=== PATIENT | female | born 1990 | race Caucasian/White ===

== ENCOUNTER → 2017-08-14 | Outpatient (REF) | payer OTHER ==
[2017-08-15 12:14] LABS: BASO # 0.1 10^3/uL (0.0-0.2); BASO % 0.5 % (0.0-1.0); EOS # 0.1 10^3/uL (0.0-0.50); EOS % 1.2 % (0.0-3.0); HEMOGLOBIN 13.2 g/dl (12.0-16.0); IMMATURE GRANULOCYTE % 0.4 % (0-3.0); LYMPH # 4.4 10^3/uL (1.5-6.5); MONO # 0.7 10^3/uL (0.0-0.8); MONO % 5.6 % (0.0-5.0); NEUTROPHILS # 6.6 10^3/uL (1.8-7.7); NEUTROPHILS % 55.3 % (36.0-66.0); PLATELET COUNT, AUTOMATED 362 10^3/uL (150-450); RED BLOOD COUNT 4.88 10^6/uL (4.00-5.40); RED CELL DISTRIBUTION WIDTH 12.5 % (11.5-14.5); WHITE BLOOD COUNT 11.9 10^3/uL (4.0-10.0)
[2017-08-15 12:45] LABS: ALBUMIN 3.9 GM/DL (3.2-5.2); ALBUMIN/GLOBULIN RATIO 0.98 (1.00-1.93); ALKALINE PHOSPHATASE 73 U/L (45-117); ALT/SGPT 40 U/L (12-78); ANION GAP 8 MEQ/L (8-16); AST/SGOT 20 U/L (7-37); BILIRUBIN,TOTAL 0.3 MG/DL (0.2-1.0); BLOOD UREA NITROGEN 9 MG/DL (7-18); C REACTIVE PROTEIN QUANTITATIV 0.79 MG/DL (0.00-0.30); CALCIUM LEVEL 9.2 MG/DL (8.5-10.1); CARBON DIOXIDE LEVEL 26 MEQ/L (21-32); CHLORIDE LEVEL 107 MEQ/L (98-107); CREATININE FOR GFR 0.65 MG/DL (0.55-1.30); GLOMERULAR FILTRATION RATE > 60.0 (>60); GLUCOSE, FASTING 95 MG/DL (70-100); RHEUMATOID FACTOR QUANT < 10.0 IU/ML (<15.0); SODIUM LEVEL 141 MEQ/L (136-145); THYROXINE (T4) 10.2 UG/DL (4.5-12.0); TOTAL PROTEIN 7.9 GM/DL (6.4-8.2)
[2017-08-15 12:49] LABS: ERYTHROCYTE SEDIMENTATION RATE 52 mm/hr (0-20)
[2017-08-19 00:07] LABS: CYCLIC CITRULLINATED PEPTIDE 6 units (0-19)
[2017-08-19 00:07] LABS: ANA (HEP2) Negative (.); Lyme Disease IgG Ab 18 kDa Ban Absent (.); Lyme Disease IgG Ab 23 kDa Ban Absent (.); Lyme Disease IgG Ab 28 kDa Ban Absent (.); Lyme Disease IgG Ab 30 kDa Ban Absent (.); Lyme Disease IgG Ab 39 kDa Ban Absent (.); Lyme Disease IgG Ab 41 kDa Ban Present (.); Lyme Disease IgG Ab 45 kDa Ban Absent (.); Lyme Disease IgG Ab 58 kDa Ban Absent (.); Lyme Disease IgG Ab 66 kDa Ban Absent (.); Lyme Disease IgG Ab 93 kDa Ban Absent (.); Lyme Disease IgG West Blot Int Negative (.); Lyme Disease IgG/IgM Antibodie <0.91 ISR (0.00-0.90); Lyme Disease IgM Ab 23 kDa Ban Absent (.); Lyme Disease IgM Ab 39 kDa Ban Absent (.); Lyme Disease IgM Ab 41 kDa Ban Absent (.); Lyme Disease IgM Ab Quantitati 1.44 index (0.00-0.79); Lyme Disease IgM West Blot Int Negative (.)
== END ==
LOC: M SFHCCLAY 15:48
DX: M25.50 Pain in unspecified joint (principal); M79.1 Myalgia
CPT/HCPCS: 84443

== ENCOUNTER → 2017-11-20 | Outpatient (CLI) | payer OTHER | LOC: M WHC 11:06 | DX: N91.1 Secondary amenorrhea (principal) | CPT/HCPCS: 76830 ==

== ENCOUNTER → 2019-08-06 | Outpatient (CLI) | payer OTHER ==
[~2019-08-06] MED LIST: BACT800T5 PO; CELE10TA PO; CELE20TA PO; LAMI1TAB7 OR; TOPA1TAB PO; TRAZ-252 PO; TRAZ1TAB6 PO; TRAZ50TA OR; VYVANSE PO; vivance OR; vyvanse OR
--- NOTE | 2019-08-06 14:52 | REP ---
REASON: Amenorrhea. COMPARISON: 11/20/2017 Transvesical and transvaginal imaging was obtained. The uterus measures 7.5 x 4 x 4.8 cm. The parenchymal echo pattern is within normal limits. The endometrial echo complex measures. The endometrial echo complex measures 6 mm in thickness and is within normal limits. Right ovary measures 3.1 x 2.1 x 1.5 cm and is within normal limits. Left ovary measures 3.3 x 2.3 x 1.8 cm and is within normal limits. The urinary bladder measures 6 x 5 cm. IMPRESSION: Pelvic ultrasonography is within normal limits.
== END ==
LOC: M WHC 10:39
PROVIDERS: ATTEND Nurse Practitioner Women's Health
DX: N91.5 Oligomenorrhea, unspecified (principal); E28.2 Polycystic ovarian syndrome

== ENCOUNTER 2020-12-11 13:45 | Inpatient (IN) | payer OTHER ==
[~2020-12-11] VITALS: Ht 167.6 cm; Wt 144.1 kg
[2020-12-11] MEDS ORDERED: PANT40TA29 PO (15:15)
[2020-12-11 15:38] LABS: HEMOGLOBIN 12.3 g/dl (12.0-15.5); MEAN CORPUSCULAR HEMOGLOBIN 26.7 pg (27.0-33.0); MEAN CORPUSCULAR HGB CONC 32.4 g/dl (32.0-36.5); MEAN CORPUSCULAR VOLUME 82.6 fl (80.0-96.0); PLATELET COUNT, AUTOMATED 339 10^3/uL (150-450); WHITE BLOOD COUNT 11.7 10^3/uL (4.0-10.0)
[2020-12-11 16:17] LABS: AMPHETAMINES LEVEL URINE NEGATIVE (NEGATIVE); BARBITURATES URINE NEGATIVE (NEGATIVE); BENZODIAZEPINES URINE NEGATIVE (NEGATIVE); CANNABINOIDS URINE NEGATIVE (NEGATIVE); COCAINE METABOLITE URINE NEGATIVE (NEGATIVE); METHADONE URINE NEGATIVE (NEGATIVE); OPIATES URINE NEGATIVE (NEGATIVE); PHENCYCLIDINE URINE NEGATIVE (NEGATIVE)
[2020-12-11 16:21] LABS: ACETAMINOPHEN LEVEL < 2.0 UG/ML (10.0-30.0); ALBUMIN 3.8 GM/DL (3.2-5.2); ALT/SGPT 75 U/L (12-78); BILIRUBIN,DIRECT 0.1 MG/DL (0.0-0.2); BILIRUBIN,TOTAL 0.5 MG/DL (0.2-1.0); BLOOD UREA NITROGEN 10 MG/DL (7-18); CALCIUM LEVEL 9.1 MG/DL (8.5-10.1); CARBON DIOXIDE LEVEL 24 MEQ/L (21-32); CHLORIDE LEVEL 107 MEQ/L (98-107); CREATININE FOR GFR 0.68 MG/DL (0.55-1.30); ETHYL ALCOHOL (ETHANOL) < 0.003 % (0.000-0.010); GLOMERULAR FILTRATION RATE > 60.0 (>60); GLUCOSE, FASTING 95 MG/DL (70-100); POTASSIUM SERUM 4.2 MEQ/L (3.5-5.1); SALICYLATE LEVEL < 1.7 MG/DL (5.0-30.0); SODIUM LEVEL 137 MEQ/L (136-145); THYROID STIMULATING HORMONE 0.769 uIU/ML (0.358-3.740); TOTAL PROTEIN 7.3 GM/DL (6.4-8.2)
[2020-12-12] MEDS ORDERED: CITA20TA6 PO (08:02)
[2020-12-12] MEDS ORDERED: PANTOPRAZOLE 40MG TAB (PROTONIX) PO ONE (08:35)
[2020-12-12] MEDS ORDERED: CitaloPRAM (CeleXA) 20 MG TAB PO ONE (08:35)
[2020-12-12] MEDS ORDERED: CitaloPRAM (CeleXA) 20 MG TAB PO SCH (09:00)
[2020-12-12 11:40] LABS: RSV AMPLIFICATION NEGATIVE (NEGATIVE)
[2020-12-12] MEDS ORDERED: ACETAMINOPHEN TAB 650MG DOSE (2X325MG) PO PRN (14:00)
[2020-12-12] MEDS ORDERED: MOM 30ML SUSPENSION UDC PO PRN (14:00)
[2020-12-12] MEDS ORDERED: MAALOX 30 ML SUSP *UDC PO PRN (14:00)
[2020-12-12 17:46] LABS: HCG, SERUM QUALITATIVE NEGATIVE (NEGATIVE)
[2020-12-12 18:48] VITALS: BP 138/88
[2020-12-12 22:44] VITALS: BP 138/88
[2020-12-13 06:26] VITALS: BP 133/83
[2020-12-13] MEDS ORDERED: CitaloPRAM (CeleXA) 20 MG TAB PO SCH (09:00)
[2020-12-13] MEDS: PANTOPRAZOLE 40MG TAB (PROTONIX) PO SCH (09:02)
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
[2020-12-13] MEDS ORDERED: LOPERAMIDE 2 MG CAPLET PO ONE (11:30)
[2020-12-13] MEDS ORDERED: LOPERAMIDE 2 MG CAPLET PO PRN (11:30)
[2020-12-13 17:32] VITALS: BP 120/58
[2020-12-13] MEDS: PRAZOSIN 1 MG CAP PO SCH (22:02)
[2020-12-13] MEDS: traZODone 50 MG TAB PO PRN (22:02)
[2020-12-14 07:06] VITALS: BP 99/52
[2020-12-14] MEDS: PANTOPRAZOLE 40MG TAB (PROTONIX) PO SCH (09:39)
[2020-12-14] MEDS: CitaloPRAM (CeleXA) 10 MG TABLET PO SCH (09:53)
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
[2020-12-14 18:00] VITALS: BP 142/69
[2020-12-14] MEDS ORDERED: LOPERAMIDE 2 MG CAPLET PO ONE (21:15)
[2020-12-14] MEDS ORDERED: LOPERAMIDE 2 MG CAPLET PO PRN (21:15)
[2020-12-14] MEDS: PRAZOSIN 1 MG CAP PO SCH (21:31)
[2020-12-14] MEDS: traZODone 50 MG TAB PO PRN (23:02)
[2020-12-15 06:29] VITALS: BP 117/69
[2020-12-15] MEDS: PANTOPRAZOLE 40MG TAB (PROTONIX) PO SCH (10:13)
[2020-12-15] MEDS: CitaloPRAM (CeleXA) 10 MG TABLET PO SCH (10:14)
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
[2020-12-15 16:28] LABS: HEMATOCRIT 38.5 % (36.0-47.0); HEMOGLOBIN 12.7 g/dl (12.0-15.5); MEAN CORPUSCULAR HEMOGLOBIN 27.1 pg (27.0-33.0); MEAN CORPUSCULAR VOLUME 82.3 fl (80.0-96.0); PLATELET COUNT, AUTOMATED 340 10^3/uL (150-450); RED BLOOD COUNT 4.68 10^6/uL (4.00-5.40); WHITE BLOOD COUNT 12.1 10^3/uL (4.0-10.0)
[2020-12-15 18:00] VITALS: BP 124/54
[2020-12-15] MEDS: PRAZOSIN 1 MG CAP PO SCH (21:42)
[2020-12-15] MEDS: traZODone 50 MG TAB PO PRN (23:33)
[2020-12-16 05:32] VITALS: BP 104/57
[2020-12-16] MEDS: PANTOPRAZOLE 40MG TAB (PROTONIX) PO SCH (08:41)
[2020-12-16] MEDS: CitaloPRAM (CeleXA) 10 MG TABLET PO SCH (08:41)
[2020-12-16 10:18] VITALS: BP 104/57
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
[2020-12-16 17:09] VITALS: BP 138/77
[2020-12-16] MEDS: PRAZOSIN 1 MG CAP PO SCH (21:41)
[2020-12-16] MEDS: traZODone 50 MG TAB PO PRN (23:10)
[2020-12-17 06:20] VITALS: BP 119/58
[2020-12-17] MEDS: CitaloPRAM (CeleXA) 10 MG TABLET PO SCH (08:44)
[2020-12-17] MEDS: PANTOPRAZOLE 40MG TAB (PROTONIX) PO SCH (08:44)
[2020-12-17 15:43] VITALS: BP 117/57
[2020-12-17] MEDS: PRAZOSIN 1 MG CAP PO SCH (20:27)
[2020-12-17] MEDS: traZODone 50 MG TAB PO PRN (20:27)
[2020-12-18 06:38] VITALS: BP 122/56
[2020-12-18] MEDS: CitaloPRAM (CeleXA) 10 MG TABLET PO SCH (09:38)
[2020-12-18] MEDS: PANTOPRAZOLE 40MG TAB (PROTONIX) PO SCH (09:38)
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
[2020-12-18 19:07] VITALS: BP 128/62
[2020-12-18] MEDS: PRAZOSIN 1 MG CAP PO SCH (21:37)
[2020-12-18] MEDS: traZODone 50 MG TAB PO PRN (22:31)
[2020-12-19 06:00] VITALS: BP 112/58
[2020-12-19] MEDS: CitaloPRAM (CeleXA) 10 MG TABLET PO SCH (08:28)
[2020-12-19] MEDS: PANTOPRAZOLE 40MG TAB (PROTONIX) PO SCH (08:28)
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
[2020-12-19] MEDS ORDERED: PRAZ2CAP PO (14:27)
[2020-12-19] MEDS ORDERED: CELE40TA PO (14:27)
[2020-12-19 18:06] VITALS: BP 133/83
[2020-12-19 22:04] VITALS: BP 128/69
[2020-12-19] MEDS: traZODone 50 MG TAB PO PRN (22:04)
[2020-12-19] MEDS: PRAZOSIN 1 MG CAP PO SCH (22:04)
[2020-12-20 07:11] VITALS: BP 117/68
[2020-12-20] MEDS: PANTOPRAZOLE 40MG TAB (PROTONIX) PO SCH (08:36)
[2020-12-20] MEDS: CitaloPRAM (CeleXA) 10 MG TABLET PO SCH (08:37)
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
== END 2020-12-20 12:30 | disposition home or self-care (01) | DRG 885 ==
LOC: M ED 13:45 → M ED INP 12-12 13:57 → M PSY 12-12 18:14
PROVIDERS: ADMIT Psychiatry & Neurology Psychiatry; ATTEND Psychiatry & Neurology Psychiatry
DX: F33.9 Major depressive disorder, recurrent, unspecified (principal); R45.851 Suicidal ideations; F43.10 Post-traumatic stress disorder, unspecified; E66.01 Morbid (severe) obesity due to excess calories

== ENCOUNTER 2020-12-25 10:58 | Inpatient (IN) | payer OTHER ==
[~2020-12-25] VITALS: Ht 167.6 cm; Wt 142.7 kg
[~2020-12-25 10:58] MED LIST changes: +CELE40TA PO; +CITA20TA6 PO; +PANT40TA29 PO; +PRAZ2CAP PO
[2020-12-25 11:23] LABS: BASO % 0.3 % (0.0-1.0); EOS # 0.1 10^3/uL (0.0-0.5); EOS % 0.5 % (0.0-3.0); HEMATOCRIT 40.2 % (36.0-47.0); HEMOGLOBIN 12.9 g/dl (12.0-15.5); LYMPH # 2.5 10^3/uL (1.5-5.0); MEAN CORPUSCULAR HEMOGLOBIN 26.6 pg (27.0-33.0); MEAN CORPUSCULAR HGB CONC 32.1 g/dl (32.0-36.5); MEAN CORPUSCULAR VOLUME 82.9 fl (80.0-96.0); MONO # 0.5 10^3/uL (0.0-0.8); MONO % 4.6 % (2.0-8.0); NEUTROPHILS # 8.3 10^3/uL (1.5-8.5); NEUTROPHILS % 72.2 % (36.0-66.0); PLATELET COUNT, AUTOMATED 321 10^3/uL (150-450); RED BLOOD COUNT 4.85 10^6/uL (4.00-5.40); WHITE BLOOD COUNT 11.5 10^3/uL (4.0-10.0)
[2020-12-25] MEDS ORDERED: CHARCOAL ACTIVATED LIQUID 25 GM/120 ML BTL PO ONE (11:35)
[2020-12-25] MEDS: NS 1,000 ML IV SCH ×2 (11:51→21:35)
[2020-12-25 11:52] LABS: HCG, SERUM QUALITATIVE NEGATIVE (NEGATIVE)
[2020-12-25 12:07] LABS: ACETAMINOPHEN LEVEL < 2.0 UG/ML (10.0-30.0); ALBUMIN 3.6 GM/DL (3.2-5.2); ALT/SGPT 50 U/L (12-78); BILIRUBIN,DIRECT < 0.1 MG/DL (0.0-0.2); BILIRUBIN,TOTAL 0.7 MG/DL (0.2-1.0); BLOOD UREA NITROGEN 9 MG/DL (7-18); CALCIUM LEVEL 8.7 MG/DL (8.5-10.1); CARBON DIOXIDE LEVEL 23 MEQ/L (21-32); CHLORIDE LEVEL 105 MEQ/L (98-107); CPK CREATINE PHOSPHOKINASE 177 U/L (26-192); CREATININE FOR GFR 0.83 MG/DL (0.55-1.30); ETHYL ALCOHOL (ETHANOL) < 0.003 % (0.000-0.010); GLOMERULAR FILTRATION RATE > 60.0 (>60); GLUCOSE, FASTING 163 MG/DL (70-100); POTASSIUM SERUM 4.9 MEQ/L (3.5-5.1); SALICYLATE LEVEL < 1.7 MG/DL (5.0-30.0); SODIUM LEVEL 135 MEQ/L (136-145); THYROID STIMULATING HORMONE 0.789 uIU/ML (0.358-3.740); TOTAL PROTEIN 7.4 GM/DL (6.4-8.2)
[2020-12-25 12:55] LABS: AMPHETAMINES LEVEL URINE NEGATIVE (NEGATIVE); BARBITURATES URINE NEGATIVE (NEGATIVE); BENZODIAZEPINES URINE NEGATIVE (NEGATIVE); CANNABINOIDS URINE NEGATIVE (NEGATIVE); COCAINE METABOLITE URINE NEGATIVE (NEGATIVE); METHADONE URINE NEGATIVE (NEGATIVE); OPIATES URINE NEGATIVE (NEGATIVE); PHENCYCLIDINE URINE NEGATIVE (NEGATIVE)
[2020-12-25] MEDS ORDERED: PRAZ2CAP PO (18:54)
[2020-12-25] MEDS ORDERED: CITA20TA7 PO (18:54)
[2020-12-25] MEDS ORDERED: HOME MED LIST COMPLETE! XX SCH (19:00)
--- NOTE | 2020-12-25 19:56 | ECGEPIP ---
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
[2020-12-25 21:32] LABS: RSV AMPLIFICATION NEGATIVE (NEGATIVE)
[2020-12-25] MEDS ORDERED: OLANZapine ORAL DISINTEGRATING TAB 5MG PO PRN (21:35)
[2020-12-25] MEDS ORDERED: MOM 30ML SUSPENSION UDC PO PRN (21:35)
[2020-12-25] MEDS ORDERED: ACETAMINOPHEN TAB 650MG DOSE (2X325MG) PO PRN (21:35)
[2020-12-25] MEDS: PRAZOSIN 1 MG CAP PO SCH (22:09)
[2020-12-25] MEDS: traZODone 50 MG TAB PO PRN (22:09)
[2020-12-25] MEDS: CitaloPRAM (CeleXA) 10 MG TABLET PO SCH (22:09)
[2020-12-25 23:57] VITALS: BP 111/65
[2020-12-26] MEDS: PANTOPRAZOLE 40MG TAB (PROTONIX) PO SCH (09:52)
[2020-12-26] MEDS: buPROPion 75 MG TAB PO SCH ×2 (09:52→21:51)
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
[2020-12-26 16:25] VITALS: BP 141/66
[2020-12-26 16:30] VITALS: BP 123/72
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
[2020-12-26] MEDS ORDERED: IBUPROFEN 600MG TAB PO ONE (19:00)
[2020-12-26] MEDS: traZODone 50 MG TAB PO PRN (21:51)
[2020-12-26] MEDS: CitaloPRAM (CeleXA) 10 MG TABLET PO SCH (21:51)
[2020-12-26] MEDS: PRAZOSIN 1 MG CAP PO SCH (21:52)
[2020-12-27 05:58] VITALS: BP 140/90
[2020-12-27] MEDS: PANTOPRAZOLE 40MG TAB (PROTONIX) PO SCH (08:29)
[2020-12-27] MEDS: buPROPion 75 MG TAB PO SCH ×2 (08:29→21:38)
--- NOTE | 2020-12-27 08:39 | MHIPNPDOC ---
[facility] Progress Note Progress Note DATE OF SERVICE: 12/27/20 Patient is cooperated with medications and reports no side effect. She slept well without any nightmares and stated that she is not getting any headache or increased anxiety with the Wellbutrin and is willing to cooperate. She spoke with CPS worker and was reassured that current foster care is only temporary and will be reevaluated after her hospitalization and is feeling a little relieved. She is maintaining good control but reports feeling hopeless worthless and continues to have vague suicidal thoughts but denies any plan or intent. HISTORY:. VITAL SIGNS: See below. NEW TEST RESULTS:. CURRENT MEDICATIONS: See below. MENTAL STATUS EXAMINATION: Patient is a 30-year old female, who is in no acute distress. Speech: Is relevant but not productive. Language skills are fair. Thought processes including: Coherent. Thought content: Remains depressed and feeling unsafe. Abstract reasoning, and computation: Fair. Description of associations: Organized. Description of abnormal or psychotic thoughts: No gross psychotic symptoms. Judgment: Poor. Insight: Fair. Orientation: Oriented. Recent and remote memory: No gross impairment. Attention span and concentration: Fair. Language:. Fund of knowledge: Below average. Mood: Remains depressed feeling hopeless worthless. Affect: Depressed appropriate. DIAGNOSES: 1.. Major depression 2.. 3.. ASSESSMENT: Cooperating with the treatment remains depressed MANAGEMENT PLAN: Knee stabilization. TIME SPENT: 20 minutes. Vital Signs Vital Signs Date Time Temp Pulse Resp B/P (MAP) Pulse Ox O2 Delivery O2 Flow Rate FiO2 12/27/20 05:58 97.8 81 14 140/90 (107) 98 Room Air Current Medications Current Medications Medications (Trade) Dose Ordered Sig/Paty Route PRN Reason Start Time Stop Time Status Last Admin Dose Admin Acetaminophen (Tylenol Tab) 650 mg Q6HP PRN PO HEADACHE or MILD DISCOMFORT 12/25/20 21:35 Al Hydrox/Mg Hydrox/Simethicone (Mylanta) 30 ml Q4HP PRN PO HEARTBURN/INDIGESTION 12/25/20 21:35 Bupropion HCl (Wellbutrin) 75 mg BID PO 12/26/20 09:00 12/27/20 08:29 Citalopram Hydrobromide (CeleXA) 30 mg QHS PO 12/25/20 21:00 12/26/20 21:51 Home Med (Med Rec Complete!) ASDIRECTED XX 12/25/20 19:00 12/25/20 19:01 DC Magnesium Hydroxide (Milk Of Magnesia) 30 ml DAILYPRN PRN PO CONSTIPATION 12/25/20 21:35 Olanzapine (ZyPREXA ZYDIS) 10 mg Q4HP PRN PO AGITATION 12/25/20 21:35 Pantoprazole Sodium (Protonix) 40 mg DAILY PO 12/26/20 09:00 12/27/20 08:29 Prazosin HCl (Minipress) 2 mg QHS PO 12/25/20 21:00 12/26/20 21:52 Sodium Chloride 1,000 ml @ 100 mls/hr Q10H IV 12/25/20 11:35 12/26/20 00:15 DC 12/25/20 11:51 Trazodone HCl (Desyrel) 50 mg QHSP PRN PO INSOMNIA 12/25/20 21:35 12/26/20 21:51 Allergies Coded Allergies: No Known Allergies (Verified , 01/15/12) MARTHA LOPEZ M.D. Dec 27, 2020 08:39
[2020-12-27 16:14] VITALS: BP 130/69
[2020-12-27] MEDS: PRAZOSIN 1 MG CAP PO SCH (21:38)
[2020-12-27] MEDS: traZODone 50 MG TAB PO PRN (21:38)
[2020-12-27] MEDS: CitaloPRAM (CeleXA) 10 MG TABLET PO SCH (21:38)
[2020-12-28 07:12] VITALS: BP 110/55
[2020-12-28] MEDS: buPROPion 75 MG TAB PO SCH ×2 (08:44→22:06)
[2020-12-28] MEDS: PANTOPRAZOLE 40MG TAB (PROTONIX) PO SCH (08:44)
--- NOTE | 2020-12-28 09:11 | MHIPNPDOC ---
[facility] Progress Note Progress Note DATE OF SERVICE: 12/28/20 Patient reports that she contacted the CPS and was told that her son will be in temporary foster care and she is feeling relieved to know that he is in a safe l iving arrangement. She is cooperating and tolerating her Wellbutrin without any complaint of side effect. She slept okay and appears a little more animated and she denies any active suicidal thoughts and willing to cooperate with the treatment. HISTORY:. VITAL SIGNS: See below. NEW TEST RESULTS:. CURRENT MEDICATIONS: See below. MENTAL STATUS EXAMINATION: Patient is a 30-year old female, who is in no acute distress. Speech: Is rational but not productive. Language skills are fair. Thought processes including: Relevant. Thought content: Denies any active suicidal thoughts. Abstract reasoning, and computation: Fair. Description of associations: Organized. Description of abnormal or psychotic thoughts: No psychotic symptoms. Judgment: Fair. Insight: Fair]. Orientation: Oriented. Recent and remote memory: Unimpaired. Attention span and concentration:. Language:. Fund of knowledge:. Mood: Remains depressed but feeling a little more hopeful. Affect: Depressed appropriate. DIAGNOSES: 1.. Major depression recurrent 2.. 3.. ASSESSMENT: Cooperating with the treatment MANAGEMENT PLAN: Continue with the Wellbutrin and supportive therapy. TIME SPENT: 15 minutes. Vital Signs Vital Signs Date Time Temp Pulse Resp B/P (MAP) Pulse Ox O2 Delivery O2 Flow Rate FiO2 12/28/20 08:10 Room Air 12/28/20 07:12 97.8 77 18 110/55 (73) 12/27/20 16:14 98 Current Medications Current Medications Medications (Trade) Dose Ordered Sig/Paty Route PRN Reason Start Time Stop Time Status Last Admin Dose Admin Acetaminophen (Tylenol Tab) 650 mg Q6HP PRN PO HEADACHE or MILD DISCOMFORT 12/25/20 21:35 Al Hydrox/Mg Hydrox/Simethicone (Mylanta) 30 ml Q4HP PRN PO HEARTBURN/INDIGESTION 12/25/20 21:35 Bupropion HCl (Wellbutrin) 75 mg BID PO 12/26/20 09:00 12/28/20 08:44 Citalopram Hydrobromide (CeleXA) 30 mg QHS PO 12/25/20 21:00 12/27/20 21:38 Home Med (Med Rec Complete!) ASDIRECTED XX 12/25/20 19:00 12/25/20 19:01 DC Magnesium Hydroxide (Milk Of Magnesia) 30 ml DAILYPRN PRN PO CONSTIPATION 12/25/20 21:35 Olanzapine (ZyPREXA ZYDIS) 10 mg Q4HP PRN PO AGITATION 12/25/20 21:35 Pantoprazole Sodium (Protonix) 40 mg DAILY PO 12/26/20 09:00 12/28/20 08:44 Prazosin HCl (Minipress) 2 mg QHS PO 12/25/20 21:00 12/27/20 21:38 Sodium Chloride 1,000 ml @ 100 mls/hr Q10H IV 12/25/20 11:35 12/26/20 00:15 DC 12/25/20 11:51 Trazodone HCl (Desyrel) 50 mg QHSP PRN PO INSOMNIA 12/25/20 21:35 12/27/20 21:38 Allergies Coded Allergies: No Known Allergies (Verified , 01/15/12) MARTHA LOPEZ M.D. Dec 28, 2020 09:11
[2020-12-28] MEDS: MAALOX 30 ML SUSP *UDC PO PRN (14:31)
[2020-12-28 16:07] VITALS: BP 121/68
[2020-12-28] MEDS ORDERED: LOPERAMIDE 2 MG CAPLET PO ONE (17:05)
[2020-12-28] MEDS: PRAZOSIN 1 MG CAP PO SCH (22:06)
[2020-12-28] MEDS: traZODone 50 MG TAB PO PRN (22:06)
[2020-12-28] MEDS: CitaloPRAM (CeleXA) 10 MG TABLET PO SCH (22:06)
[2020-12-29 08:00] VITALS: BP 127/67
[2020-12-29] MEDS: PANTOPRAZOLE 40MG TAB (PROTONIX) PO SCH (08:04)
[2020-12-29] MEDS: buPROPion 75 MG TAB PO SCH ×2 (08:04→20:48)
--- NOTE | 2020-12-29 08:33 | MHIPNPDOC ---
[facility] Progress Note Progress Note DATE OF SERVICE: 12/29/20 Patient is tolerating Wellbutrin without any complaint of side effect. She reported that she feels a little less depressed and feeling happier but unable to elaborate. We will increase Seroquel 200 mg twice a day and continue with the supportive therapy. She is complaining slight diarrhea but otherwise has no other physical complaints and in good control. HISTORY:. VITAL SIGNS: See below. NEW TEST RESULTS:. CURRENT MEDICATIONS: See below. MENTAL STATUS EXAMINATION: Patient is a 30-year old female, who is cooperative. Speech: Is rational and coherent. Language skills are fair. Thought processes including: Organized. Thought content: Denies any active suicidal thoughts. Abstract reasoning, and computation: Fair. Description of associations: Relevant and coherent. Description of abnormal or psychotic thoughts: Denies any. Judgment: Fair. Insight: [Fair. Orientation: Oriented. Recent and remote memory: Unimpaired. Attention span and concentration: Fair. Language:. Fund of knowledge:. Mood: Not feeling as depressed. Affect: More animated and appropriate. DIAGNOSES: 1.. Major depression 2.. 3.. ASSESSMENT: Showing slight improvement MANAGEMENT PLAN: Increase Wellbutrin and supportive therapy. TIME SPENT: 15 minutes. Vital Signs Vital Signs Date Time Temp Pulse Resp B/P (MAP) Pulse Ox O2 Delivery O2 Flow Rate FiO2 12/28/20 22:06 119/69 12/28/20 19:48 Room Air 12/28/20 16:07 98.1 74 18 99 Current Medications Current Medications Medications (Trade) Dose Ordered Sig/Paty Route PRN Reason Start Time Stop Time Status Last Admin Dose Admin Acetaminophen (Tylenol Tab) 650 mg Q6HP PRN PO HEADACHE or MILD DISCOMFORT 12/25/20 21:35 Al Hydrox/Mg Hydrox/Simethicone (Mylanta) 30 ml Q4HP PRN PO HEARTBURN/INDIGESTION 12/25/20 21:35 12/28/20 14:31 Bupropion HCl (Wellbutrin) 75 mg BID PO 12/26/20 09:00 12/29/20 08:04 Citalopram Hydrobromide (CeleXA) 30 mg QHS PO 12/25/20 21:00 12/28/20 22:06 Home Med (Med Rec Complete!) ASDIRECTED XX 12/25/20 19:00 12/25/20 19:01 DC Magnesium Hydroxide (Milk Of Magnesia) 30 ml DAILYPRN PRN PO CONSTIPATION 12/25/20 21:35 Olanzapine (ZyPREXA ZYDIS) 10 mg Q4HP PRN PO AGITATION 12/25/20 21:35 Pantoprazole Sodium (Protonix) 40 mg DAILY PO 12/26/20 09:00 12/29/20 08:04 Prazosin HCl (Minipress) 2 mg QHS PO 12/25/20 21:00 12/28/20 22:06 Sodium Chloride 1,000 ml @ 100 mls/hr Q10H IV 12/25/20 11:35 12/26/20 00:15 DC 12/25/20 11:51 Trazodone HCl (Desyrel) 50 mg QHSP PRN PO INSOMNIA 12/25/20 21:35 12/28/20 22:06 Allergies Coded Allergies: No Known Allergies (Verified , 01/15/12) MARTHA LOPEZ M.D. Dec 29, 2020 08:33
[2020-12-29 16:20] VITALS: BP 117/71
[2020-12-29] MEDS: CitaloPRAM (CeleXA) 10 MG TABLET PO SCH (20:49)
[2020-12-29] MEDS: PRAZOSIN 1 MG CAP PO SCH (20:49)
[2020-12-29] MEDS: traZODone 50 MG TAB PO PRN (21:51)
[2020-12-30 06:45] VITALS: BP 109/54
[2020-12-30] MEDS: PANTOPRAZOLE 40MG TAB (PROTONIX) PO SCH (08:50)
[2020-12-30] MEDS: buPROPion 75 MG TAB PO SCH ×2 (08:50→21:47)
--- NOTE | 2020-12-30 10:08 | MHIPNPDOC ---
[facility] Progress Note Progress Note DATE OF SERVICE: 12/30/20 Cooperating and tolerating her increase of the Wellbutrin and has no new complaints. Patient has been in good control and denies any suicidal thoughts and reports feeling a little bit more hopeful. HISTORY:. VITAL SIGNS: See below. NEW TEST RESULTS:. CURRENT MEDICATIONS: See below. MENTAL STATUS EXAMINATION: Patient is a 30-year old female, who is in no acute distress. Speech: Is rational. Language skills are fair. Thought processes including: Relevant. Thought content: Denies any suicidal thoughts. Abstract reasoning, and computation:. Description of associations: Relevant. Description of abnormal or psychotic thoughts: Denies any. Judgment: Fair. Insight]. Fair Orientation: Oriented not impaired. Recent and remote memory: No gross impairment. Attention span and concentration:. Language:. Fund of knowledge:. Mood: Feeling a little brighter. Affect: Animated. DIAGNOSES: 1.. Major depression recurrent 2.. 3.. ASSESSMENT: Showing some improvement MANAGEMENT PLAN: Continue with the current treatment. TIME SPENT: 10 minutes. Vital Signs Vital Signs Date Time Temp Pulse Resp B/P (MAP) Pulse Ox O2 Delivery O2 Flow Rate FiO2 12/30/20 06:45 97.4 83 16 109/54 (72) 99 Room Air Current Medications Current Medications Medications (Trade) Dose Ordered Sig/Paty Route PRN Reason Start Time Stop Time Status Last Admin Dose Admin Acetaminophen (Tylenol Tab) 650 mg Q6HP PRN PO HEADACHE or MILD DISCOMFORT 12/25/20 21:35 Al Hydrox/Mg Hydrox/Simethicone (Mylanta) 30 ml Q4HP PRN PO HEARTBURN/INDIGESTION 12/25/20 21:35 12/28/20 14:31 Bupropion HCl (Wellbutrin) 75 mg BID PO 12/26/20 09:00 12/30/20 08:50 Citalopram Hydrobromide (CeleXA) 30 mg QHS PO 12/25/20 21:00 12/29/20 20:49 Home Med (Med Rec Complete!) ASDIRECTED XX 12/25/20 19:00 12/25/20 19:01 DC Magnesium Hydroxide (Milk Of Magnesia) 30 ml DAILYPRN PRN PO CONSTIPATION 12/25/20 21:35 Olanzapine (ZyPREXA ZYDIS) 10 mg Q4HP PRN PO AGITATION 12/25/20 21:35 Pantoprazole Sodium (Protonix) 40 mg DAILY PO 12/26/20 09:00 12/30/20 08:50 Prazosin HCl (Minipress) 2 mg QHS PO 12/25/20 21:00 12/29/20 20:49 Sodium Chloride 1,000 ml @ 100 mls/hr Q10H IV 12/25/20 11:35 12/26/20 00:15 DC 12/25/20 11:51 Trazodone HCl (Desyrel) 50 mg QHSP PRN PO INSOMNIA 12/25/20 21:35 12/29/20 21:51 Allergies Coded Allergies: No Known Allergies (Verified , 01/15/12) MARTHA LOPZE M.D. Dec 30, 2020 10:08
[2020-12-30 16:30] VITALS: BP 130/58
[2020-12-30] MEDS: MAALOX 30 ML SUSP *UDC PO PRN (17:15)
[2020-12-30] MEDS: CitaloPRAM (CeleXA) 10 MG TABLET PO SCH (21:46)
[2020-12-30] MEDS: PRAZOSIN 1 MG CAP PO SCH (21:48)
[2020-12-30] MEDS: traZODone 50 MG TAB PO PRN (22:07)
[2020-12-31 05:29] VITALS: BP 143/73
[2020-12-31] MEDS: buPROPion 75 MG TAB PO SCH ×2 (08:23→21:38)
[2020-12-31] MEDS: PANTOPRAZOLE 40MG TAB (PROTONIX) PO SCH (08:23)
[2020-12-31 16:21] VITALS: BP 123/61
[2020-12-31 21:38] VITALS: BP 130/70
[2020-12-31] MEDS: PRAZOSIN 1 MG CAP PO SCH (21:38)
[2020-12-31] MEDS: CitaloPRAM (CeleXA) 10 MG TABLET PO SCH (21:38)
[2020-12-31] MEDS: traZODone 50 MG TAB PO PRN (22:27)
[2021-01-01 07:31] VITALS: BP 123/72
[2021-01-01] MEDS ORDERED: BUPR75TA5 PO (08:15)
[2021-01-01] MEDS: PANTOPRAZOLE 40MG TAB (PROTONIX) PO SCH (08:43)
[2021-01-01] MEDS: buPROPion 75 MG TAB PO SCH (08:44)
--- NOTE | 2021-01-02 10:09 | MHDSPDOC ---
[facility] Discharge Summary Discharge Summary DATE OF ADMISSION: Dec 25, 2020 at 23:45 DATE OF DISCHARGE: Jan 01, 2021 at 09:40 DISCHARGE DIAGNOSES: 1.. Major depression recurrent 2.. REASON FOR ADMISSION: 30-year-old female with a recent inpatient admission came back to the emergency room after taking an overdose of Benadryl 30 tablets as a suicidal attempt. Patient reports that her depression was not getting much better and she is under more stress from her family situation and apparently reported that she took an overdose while on the phone interview with her psychiatrist. CONSULTANTS INVOLVED: TREATMENT AND PROGRESS ON THE UNIT : Patient was seen for supportive therapy continued on her prazosin 2 mg at bedtime Celexa 30 mg daily and the given Wellbutrin 75 mg twice a day. She was fully cooperated and maintained good control and showed a significant improvement.. HOSPITAL COURSE: She has fully cooperated with the medications and did not experience any adverse reaction. She also contacted CPS and was reassured that son was in a temporary foster care. She stated that she is feeling much safer and not feeling as depressed and denies any more suicidal thoughts and maintained good control. DISCHARGE ASSESSMENT: Improved stable and not suicidal MENTAL STATUS EXAMINATION ON DISCHARGE: Patient is a 30-year old female, who is cooperative. Speech is coherent. Language skills are fair. Thought processes including: Relevant. Thought content: No suicidal thoughts fair. Abstract reasoning, and computation:. Description of associations: Organized. Description of abnormal or psychotic thoughts: Denies any. Judgment: Fair. Insight: Fair. Orientation to well oriented. Recent and remote memory: Unimpaired. Attention span and concentration:. Language:. Fund of knowledge:. Mood: Euthymic. Affect: Appropriate. MEDICATIONS ON DISCHARGE: -For. Wellbutrin 75 mg twice a day 7 days with 3 refills -For. -For. PLAN/FOLLOWUP ARRANGEMENTS: [facility] outpatient clinic. The amount of time spent in the coordination of care for this patient was approximately 30 minutes. ETOH/Disorder Med Rx ETOH/DRUG DISORDER RX: N/A Vital Signs/I&Os Vital Signs Date Time Temp Pulse Resp B/P (MAP) Pulse Ox O2 Delivery O2 Flow Rate FiO2 01/01/21 07:31 97.1 72 14 123/72 (89) 100 Room Air Medications Scheduled Bupropion HCl (Bupropion HCl) 75 Mg Tablet, 75 MG PO BID for depression for 7 Days, #14 Citalopram Hydrobromide (Citalopram HBr) 20 Mg Tablet, 30 MG PO QHS, (Reported) Pantoprazole Sodium (Pantoprazole Sodium) 40 Mg Tablet.dr, 40 MG PO DAILY, (Reported) Prazosin Hcl (Prazosin HCl) 2 Mg Capsule, 2 MG PO QHS, (Reported) Allergies Coded Allergies: No Known Allergies (Verified , 01/15/12) MARTHA LOPEZ M.D. Jan 02, 2021 10:09
== END 2021-01-01 09:40 | disposition home or self-care (01) | DRG 885 ==
LOC: EDBD 10:58 → M ED 10:58 → M PSY 23:45
PROVIDERS: ADMIT Psychiatry & Neurology Psychiatry; ATTEND Psychiatry & Neurology Psychiatry
DX: F33.9 Major depressive disorder, recurrent, unspecified (principal); Z79.899 Other long term (current) drug therapy; E66.01 Morbid (severe) obesity due to excess calories

== ENCOUNTER → 2021-02-08 | Outpatient (REF) | payer OTHER ==
[~2021-02-08] MED LIST changes: +ARIP1TAB4; +BUPR75TA5 PO; +CITA20TA7 PO; +HYDR1CAP25; +METF500T13; +TRAZ-252
== END ==
LOC: M SFHCLERA 17:08
PROVIDERS: ATTEND Family Medicine
DX: R35.0 Frequency of micturition (principal)

== ENCOUNTER 2021-02-13 14:34 | Emergency (ER) | payer OTHER ==
[~2021-02-13] VITALS: Ht 167.6 cm; Wt 140.9 kg
[~2021-02-13 14:34] MED LIST changes: -ARIP1TAB4; -HYDR1CAP25; -METF500T13; -TRAZ-252
[2021-02-13] MEDS ORDERED: ARIP1TAB4 (15:27)
[2021-02-13] MEDS ORDERED: TRAZ-252 (15:27)
[2021-02-13] MEDS ORDERED: METF500T13 (15:27)
[2021-02-13] MEDS ORDERED: HYDR1CAP25 (15:27)
[2021-02-13 18:38] LABS: BASO # 0.1 10^3/uL (0.0-0.2); BASO % 0.4 % (0.0-1.0); EOS # 0.3 10^3/uL (0.0-0.5); HEMATOCRIT 39.9 % (36.0-47.0); HEMOGLOBIN 13.1 g/dl (12.0-15.5); LYMPH # 3.8 10^3/uL (1.5-5.0); MEAN CORPUSCULAR HEMOGLOBIN 26.8 pg (27.0-33.0); MEAN CORPUSCULAR HGB CONC 32.8 g/dl (32.0-36.5); MEAN CORPUSCULAR VOLUME 81.8 fl (80.0-96.0); MONO # 0.7 10^3/uL (0.0-0.8); MONO % 5.8 % (2.0-8.0); NEUTROPHILS # 7.9 10^3/uL (1.5-8.5); NEUTROPHILS % 61.5 % (36.0-66.0); PLATELET COUNT, AUTOMATED 372 10^3/uL (150-450); RED BLOOD COUNT 4.88 10^6/uL (4.00-5.40); WHITE BLOOD COUNT 12.8 10^3/uL (4.0-10.0)
[2021-02-13 18:59] LABS: BLOOD UREA NITROGEN 7 MG/DL (7-18); CALCIUM LEVEL 9.1 MG/DL (8.5-10.1); CARBON DIOXIDE LEVEL 27 MEQ/L (21-32); CHLORIDE LEVEL 106 MEQ/L (98-107); CREATININE FOR GFR 0.91 MG/DL (0.55-1.30); GLOMERULAR FILTRATION RATE > 60.0 (>60); GLUCOSE, FASTING 100 MG/DL (70-100); POTASSIUM SERUM 4.1 MEQ/L (3.5-5.1); SODIUM LEVEL 140 MEQ/L (136-145)
--- NOTE | 2021-02-13 19:57 | REPVR ---
PROCEDURE INFORMATION: Exam: CT Abdomen And Pelvis Without Contrast Exam date and time: 02/13/2021 7:15 PM Age: 30 years old Clinical indication: Other: Hematuria; Additional info: Painless hematuria, urine culture contaminated, TECHNIQUE: Imaging protocol: Computed tomography of the abdomen and pelvis without contrast. Axial, coronal and sagittal reformatted images were created and reviewed. Radiation optimization: All CT scans at this facility use at least one of these dose optimization techniques: automated exposure control; mA and/or kV adjustment per patient size (includes targeted exams where dose is matched to clinical indication); or iterative reconstruction. COMPARISON: CT ABD PELVIS W/O FOL BY WIT 05/17/2016 2:47 PM FINDINGS: Liver: Mild hepatomegaly. Diffuse hepatic steatosis. Gallbladder and bile ducts: Cholelithiasis. Pancreas: Unremarkable. Spleen: Unremarkable. Adrenal glands: Normal. No mass. Kidneys and ureters: No mass. No radiodense calculi. No hydronephrosis. Stomach and bowel: No bowel wall thickening. No obstruction. No pneumatosis. Appendix: Normal. Intraperitoneal space: No free fluid. No organized fluid collection. No free air. Vasculature: Unremarkable. No aneurysm. Lymph nodes: Small mesenteric lymph nodes, nonspecific in appearance. No pathologically enlarged lymph nodes. Urinary bladder: Decompressed urinary bladder, which limits evaluation for wall thickening. Reproductive: Unremarkable. Bones/joints: No acute osseous abnormality. Mild degenerative changes. Soft tissues: Tiny, fat containing umbilical hernia. IMPRESSION: 1. Limited noncontrast examination without CT evidence of acute intra-abdominal or pelvic pathology. 2. Additional findings, as above. Electronically signed by: Anand Batista On 02/13/2021 19:56:50 PM
[2021-02-13 20:31] VITALS: BP 115/54
== END 2021-02-13 20:39 | disposition home or self-care (01) ==
LOC: M ED 14:34
DX: S90.851A Superficial foreign body, right foot, initial encounter (principal); S90.852A Superficial foreign body, left foot, initial encounter; Z18.81 Retained glass fragments; W25.XXXA Contact with sharp glass, initial encounter; Y92.009 Unspecified place in unspecified non-institutional (private) residence as the place of occurrence of the external cause; Y93.9 Activity, unspecified; Y99.9 Unspecified external cause status; D72.829 Elevated white blood cell count, unspecified; R10.9 Unspecified abdominal pain; K80.20 Calculus of gallbladder without cholecystitis without obstruction; R16.0 Hepatomegaly, not elsewhere classified; E28.2 Polycystic ovarian syndrome; K21.9 Gastro-esophageal reflux disease without esophagitis; Z79.899 Other long term (current) drug therapy

== ENCOUNTER 2021-02-17 16:17 | Inpatient (IN) | payer OTHER ==
[~2021-02-17] VITALS: Ht 167.6 cm; Wt 140.7 kg
[~2021-02-17 16:17] MED LIST changes: +ARIP1TAB4 PO; +HYDR1CAP25 PO; +METF500T13 PO
[2021-02-17] MEDS ORDERED: CHARCOAL ACTIVATED LIQUID 25 GM/120 ML BTL PO ONE (16:25)
[2021-02-17 17:36] LABS: BASO % 0.5 % (0.0-1.0); EOS # 0.2 10^3/uL (0.0-0.5); HEMATOCRIT 39.5 % (36.0-47.0); LYMPH # 2.4 10^3/uL (1.5-5.0); LYMPH % 27.5 % (24.0-44.0); MEAN CORPUSCULAR HEMOGLOBIN 27.1 pg (27.0-33.0); MEAN CORPUSCULAR HGB CONC 32.9 g/dl (32.0-36.5); MEAN CORPUSCULAR VOLUME 82.3 fl (80.0-96.0); MONO # 0.6 10^3/uL (0.0-0.8); MONO % 6.6 % (2.0-8.0); NEUTROPHILS # 5.5 10^3/uL (1.5-8.5); NEUTROPHILS % 63.2 % (36.0-66.0); WHITE BLOOD COUNT 8.6 10^3/uL (4.0-10.0)
[2021-02-17 17:54] LABS: AMPHETAMINES LEVEL URINE NEGATIVE (NEGATIVE); BARBITURATES URINE NEGATIVE (NEGATIVE); BENZODIAZEPINES URINE NEGATIVE (NEGATIVE); CANNABINOIDS URINE NEGATIVE (NEGATIVE); COCAINE METABOLITE URINE NEGATIVE (NEGATIVE); METHADONE URINE NEGATIVE (NEGATIVE); OPIATES URINE NEGATIVE (NEGATIVE); PHENCYCLIDINE URINE NEGATIVE (NEGATIVE)
[2021-02-17 17:57] LABS: HCG, SERUM QUALITATIVE NEGATIVE (NEGATIVE)
[2021-02-17 18:08] LABS: ACETAMINOPHEN LEVEL < 2.0 UG/ML (10.0-30.0); ALBUMIN 3.6 GM/DL (3.2-5.2); ALT/SGPT 104 U/L (12-78); BILIRUBIN,DIRECT 0.1 MG/DL (0.0-0.2); BILIRUBIN,TOTAL 0.4 MG/DL (0.2-1.0); BLOOD UREA NITROGEN 7 MG/DL (7-18); CALCIUM LEVEL 9.2 MG/DL (8.5-10.1); CARBON DIOXIDE LEVEL 27 MEQ/L (21-32); CHLORIDE LEVEL 107 MEQ/L (98-107); CPK CREATINE PHOSPHOKINASE 96 U/L (26-192); CREATININE FOR GFR 0.84 MG/DL (0.55-1.30); GLOMERULAR FILTRATION RATE > 60.0 (>60); GLUCOSE, FASTING 89 MG/DL (70-100); POTASSIUM SERUM 4.3 MEQ/L (3.5-5.1); SALICYLATE LEVEL < 1.7 MG/DL (5.0-30.0); SODIUM LEVEL 139 MEQ/L (136-145); THYROID STIMULATING HORMONE 0.692 uIU/ML (0.358-3.740); TOTAL PROTEIN 7.5 GM/DL (6.4-8.2)
[2021-02-17 18:09] LABS: ETHYL ALCOHOL (ETHANOL) < 0.003 % (0.000-0.010)
[2021-02-17] MEDS ORDERED: CELE40TA PO (18:34)
[2021-02-17] MEDS ORDERED: BUPR75TA5 PO (18:34)
[2021-02-17] MEDS ORDERED: HOME MED LIST COMPLETE! XX SCH (18:45)
[2021-02-17 19:04] LABS: RSV AMPLIFICATION NEGATIVE (NEGATIVE)
--- NOTE | 2021-02-17 19:59 | HPEPDOC ---
[facility] Medical History & Physical Date of Admission Feb 17, 2021 Date of Service: Feb 17, 2021 History and Physical CHIEF COMPLAINT: Suicide attempt by drug overdose HISTORY OF PRESENT ILLNESS: 30-year-old female history of depression and prior suicide attempts. So the hospital because of drug overdose. Patient tells me that around 3:00 in the evening she took 8 pills of Wellbutrin as well as 6 pills of trazodone after which she proceeded to call the psychiatry hotline and she discussed with them her feelings of depression and thoughts of hurting herself but she did not disclose to them that she took the pills they sent him over to her house and she was brought to the hospital. Poison control was contacted from the emergency department and activated charcoal was administered. EKG showed normal sinus rhythm without a prolonged QTC. Poison control recommended admission for observation on telemetry monitoring and repeating the EKG every 8 hours. I spoke to the patient she tells me she's feeling well she's hungry and no point did she lose consciousness and she doesn't want to hurt herself again at this time. She denies any chest pain or shortness of breath she denies any lightheadedness denies any nausea or vomiting. Patient will be admitted to the medicine service with a sitter per poison control's recommendations after which psychiatry will determine if they will admit her to the inpatient mental health unit. PAST MEDICAL/SURGICAL HISTORY: Morbid obesity Depression with prior suicide attempt SOCIAL HISTORY: Denies alcohol use Denies tobacco use Denies illicit drug use Prior suicide attempts with Benadryl Marital status has a young child in state custody FAMILY HISTORY: Reviewed and none contributory to this admission ALLERGIES: Please see below. REVIEW OF SYSTEMS: 10 point review of systems complete all negative otherwise stated in HPI HOME MEDICATIONS: Please see below. PHYSICAL EXAMINATION: Constitutional: Awake and alert, in no apparent distress, obese ENT: Sclera are clear. Mucosa is moist. PERRLA Respiratory: Lungs diminished breath sounds bilaterally likely due to large body habitus. No respiratory distress. No use of accessory muscles. Cardiovascular: RRR S1 and S2 are normal, no murmur Gastrointestinal: Abdomen is soft, non distended, non tender, BS present , Obese Musculoskeletal: No lower extremity edema. RUE 5/5, LUE 5/5, BLE 5/5 Neurologic: No focal neurological deficit. Mental Status: A&O x3, normal affect Skin: No visible rashes LABORATORY DATA: See below. IMAGING: See chart MICROBIOLOGY: Please see below. ASSESSMENT 30F hx of depression and prior suicide attempts here with intentional overdose on trazodone and Wellbutrin present control recommends 24-hour telemetry admission with every 8 hourly EKGs. Transfer to psych after. PLAN # Intentional drug overdose: Has a history of prior suicide attempts. Ingested trazodone and Wellbutrin never lost consciousness feeling well. Received activated charcoal in the emergency department. EKG shows normal sinus rhythm QTC 439. Poison control recommends admission for observation on telemetry for 24-hours and repeat EKGs every 8 hours. Morning team to discuss with on-call psychiatrist regarding transfer to inpatient mental health unit. # Depression: Hold medications until the reviewed by psychiatrist tomorrow. Management per psychiatry. #?DM: she denies being diabetic but home med rec shows metformin. Fu A1C. ISS for now. Mealtime Accu-Cheks. Hypoglycemic precautions. # Obesity: BMI 50. Complicates care. # DVT prophylaxis: Radhax [facility] Hospitalist Vital Signs Vital Signs Date Time Temp Pulse Resp B/P (MAP) Pulse Ox O2 Delivery O2 Flow Rate FiO2 02/17/21 19:15 97.1 90 15 131/86 (101) 96 Room Air Laboratory Data Labs 24H Laboratory Tests 2 02/17/21 16:59: Immature Granulocyte % (Auto) 0.2, Neutrophils (%) (Auto) 63.2, Lymphocytes (%) (Auto) 27.5, Monocytes (%) (Auto) 6.6, Eosinophils (%) (Auto) 2.0, Basophils (%) (Auto) 0.5, Neutrophils # (Auto) 5.5, Lymphocytes # (Auto) 2.4, Monocytes # (Auto) 0.6, Eosinophils # (Auto) 0.2, Basophils # (Auto) 0.0, Nucleated Red Blood Cells % (auto) 0.0, Anion Gap 5L, Glomerular Filtration Rate > 60.0, Calcium Level 9.2, Total Bilirubin 0.4, Direct Bilirubin 0.1, Aspartate Amino Transf (AST/SGOT) 38H, Alanine Aminotransferase (ALT/SGPT) 104H, Alkaline Phosphatase 73, Total Creatine Kinase 96, Total Protein 7.5, Albumin 3.6, Albumin/Globulin Ratio 0.9L, Thyroid Stimulating Hormone (TSH) 0.692, Human Chorionic Gonadotropin, Qual NEGATIVE, Salicylates Level < 1.7L, Urine Opiates Screen NEGATIVE, Urine Methadone Screen NEGATIVE, Acetaminophen Level < 2.0L, Urine Barbiturates Screen NEGATIVE, Urine Phencyclidine Screen NEGATIVE, Urine Amphetamines Screen NEGATIVE, Urine Benzodiazepines Screen NEGATIVE, Urine Co kyrie Metabolite Screen NEGATIVE, Urine Cannabinoids Screen NEGATIVE, Ethyl Alcohol Level < 0.003 02/17/21 18:12: Lactic Acid Level 1.6, Coronavirus (COVID-19)(PCR) NEGATIVE, Influenza Type A (RT-PCR) NEGATIVE, Influenza Type B (RT-PCR) NEGATIVE, Respiratory Syncytial Virus (PCR) NEGATIVE CBC/BMP Laboratory Tests 02/17/21 16:59 Home Medications Scheduled Aripiprazole (Aripiprazole) 2 Mg Tablet, 2 MG PO QHS Bupropion HCl (Bupropion HCl) 75 Mg Tablet, 75 MG PO BID Citalopram Hydrobromide (Celexa) 40 Mg Tablet, 40 MG PO DAILY Metformin HCl (Metformin HCl) 500 Mg Tablet, 500 MG PO BID Pantoprazole Sodium (Pantoprazole Sodium) 40 Mg Tablet.dr, 40 MG PO DAILY Prazosin Hcl (Prazosin HCl) 2 Mg Capsule, 2 MG PO QHS Trazodone HCl (Trazodone HCl) 50 Mg Tablet, 50 MG PO QHS Scheduled PRN Hydroxyzine Pamoate (Hydroxyzine Pamoate) 25 Mg Capsule, 25 MG PO Q6H PRN for ANXIETY Allergies Coded Allergies: No Known Allergies (Verified , 01/15/12) SCOTT CABRERA MD Feb 17, 2021 19:59
[2021-02-17] MEDS ORDERED: GLUCOSE 4GM CHEW TABLET PO PRN (20:00)
[2021-02-17] MEDS ORDERED: GLUCAGON INJ 1MG VIAL SC PRN (20:00)
[2021-02-17] MEDS ORDERED: DEXTROSE 50% 50 ML SYRINGE IV PRN (20:00)
[2021-02-17] MEDS ORDERED: HumaLOG INSULIN (NovoLOG) PER UNIT SC SCH (21:00)
[2021-02-17 21:20] VITALS: BP 110/58
[2021-02-18 05:39] VITALS: BP 115/65
[2021-02-18 06:05] LABS: HEMATOCRIT 37.8 % (36.0-47.0); HEMOGLOBIN 12.4 g/dl (12.0-15.5); MEAN CORPUSCULAR HEMOGLOBIN 27.2 pg (27.0-33.0); MEAN CORPUSCULAR HGB CONC 32.8 g/dl (32.0-36.5); MEAN CORPUSCULAR VOLUME 82.9 fl (80.0-96.0); PLATELET COUNT, AUTOMATED 314 10^3/uL (150-450); RED BLOOD COUNT 4.56 10^6/uL (4.00-5.40); WHITE BLOOD COUNT 8.7 10^3/uL (4.0-10.0)
[2021-02-18 06:35] LABS: ALBUMIN 3.4 GM/DL (3.2-5.2); ALT/SGPT 97 U/L (12-78); BILIRUBIN,TOTAL 0.5 MG/DL (0.2-1.0); BLOOD UREA NITROGEN 7 MG/DL (7-18); CALCIUM LEVEL 8.6 MG/DL (8.5-10.1); CARBON DIOXIDE LEVEL 27 MEQ/L (21-32); CHLORIDE LEVEL 104 MEQ/L (98-107); CREATININE FOR GFR 0.82 MG/DL (0.55-1.30); GLOMERULAR FILTRATION RATE > 60.0 (>60); GLUCOSE, FASTING 90 MG/DL (70-100); MAGNESIUM LEVEL 2.1 MG/DL (1.8-2.4); POTASSIUM SERUM 3.8 MEQ/L (3.5-5.1); SODIUM LEVEL 139 MEQ/L (136-145); TOTAL PROTEIN 6.8 GM/DL (6.4-8.2)
[2021-02-18] MEDS ORDERED: HumaLOG INSULIN (NovoLOG) PER UNIT SC SCH (07:30)
--- NOTE | 2021-02-18 08:20 | ECGEPIP ---
[facility] Test Date: 2021-02-18 Pat Name: LEANDRA BERUMEN Department: Room: [place] [address] Gender: Female Triage Clinician: rohith : 1990 Requested By: SCOTT Miller Order Number: [id number] Reading MD: Grisel Fatima Measurements Intervals [place] Rate: 73 P: 12 [place]: 176 QRS: 51 QRSD: 88 T: 41 QT: 398 QTc: 438 Interpretive Statements Normal sinus rhythm PROB MILD EARLY REPOLAR CHANGES SIMILAR TO 02/17/21 NON DX INF QS Electronically Signed on 02-18-2021 8:20:08 EDT by Grisel Fatima
[2021-02-18] MEDS: PANTOPRAZOLE 40MG TAB (PROTONIX) PO SCH (09:44)
[2021-02-18] MEDS: ENOXAPARIN 40MG/0.4ML SYRINGE (J1650 PER 10MG) SC SCH (09:44)
--- NOTE | 2021-02-18 11:37 | IPNPDOC ---
Subjective Date Seen The patient was seen on 02/18/21. Subjective Chief Complaint/HPI Mrs. Barajas is a 30 year old female with 2 recent inpatient mental health hospitalizations who is here for suicide attempt by drug overdose. This morning, she denies any chest pain, dyspnea, or abdominal pain. Denies any anxiety or depression at this time. She tells me that yesterday she had received a letter from family court which was a trigger. She felt that she had a lot of stress and she could not handle the stress. We will continue monitoring on telemetry and obtaining EKGs. By 3 PM today, if EKGs are within normal, she may be cleared medically. Of note, patient had 2 recent inpatient mental health hospitalizations. One was in December 12, 2020 where she was hospitalized for suicidal ideations. Another was December 25, 2020 for suicide attempt by taking 30 tablets of Benadryl. Psychiatry, Dr. Zuñiga, was consulted. Recommendations appreciated. Objective Physical Examination General Exam: Positive: Alert, Cooperative Eye Exam: Negative: Sclera icteric ENT Exam: Positive: Atraumatic Neck Exam: Positive: Supple Chest Exam: Positive: Clear to auscultation Heart Exam: Positive: Rate Normal, Regular Rhythm Abdomen Exam: Positive: Normal bowel sounds, Soft, Other (Obese); Negative: Tenderness Extremity Exam: Negative: Edema Neuro Exam: Positive: Normal Speech Psych Exam: Positive: Mental status NL, Mood NL Assessment /Plan Assessment Mrs. Barajas is a 30 year old female with 2 recent inpatient mental health hospitalizations who is here for suicide attempt by drug overdose. Poison control recommended 24-hour monitoring and repeat EKGs. By 3 PM, she would reach 24 hours. Last EKG at 4 PM. Patient's had past history of suicidal ideat ion and suicide attempt by overdose. Patient at high risk for future attempts. Psychiatry consulted, recommendations appreciated. Currently patient is on one-to-one sitter. Plan/VTE VTE Prophylaxis Ordered?: Yes Plan 1. Suicide attempt by overdosing on Wellbutrin and trazodone Patient had recent hospitalization for suicide attempt with Benadryl Hold Wellbutrin and trazodone One-to-one sitter Psychiatry consulted, recommendations appreciated 2. Depression Hold psych medication (aripiprazole, bupropion, citalopram, hydroxyzine, and trazodone) until reviewed by psychiatrist 3. Metabolic syndrome Patient's HbA1c was 6 Patient may not have diabetes Okay to resume Metformin once discharged from medical 4. GERD Continue pantoprazole 5. DVT prophylaxis Lovenox Disposition: Pending final EKG at 4 PM and psychiatry consultation VS, I&O, 24H, [place] Vital Signs/I&O Vital Signs Date Time Temp Pulse Resp B/P (MAP) Pulse Ox O2 Delivery O2 Flow Rate FiO2 02/18/21 05:39 97.7 82 15 115/65 (82) 96 Room Air I&O- Last 24 Hours up to 6 AM 02/18/21 06:00 Intake Total 600 ml Output Total 200 ml Balance 400 ml Laboratory Data 24H LABS Laboratory Tests 2 02/17/21 16:59: Immature Granulocyte % (Auto) 0.2, Neutrophils (%) (Auto) 63.2, Lymphocytes (%) (Auto) 27.5, Monocytes (%) (Auto) 6.6, Eosinophils (%) (Auto) 2.0, Basophils (%) (Auto) 0.5, Neutrophils # (Auto) 5.5, Lymphocytes # (Auto) 2.4, Monocytes # (Auto) 0.6, Eosinophils # (Auto) 0.2, Basophils # (Auto) 0.0, Nucleated Red Blood Cells % (auto) 0.0, Anion Gap 5L, Glomerular Filtration Rate > 60.0, Calci um Level 9.2, Total Bilirubin 0.4, Direct Bilirubin 0.1, Aspartate Amino Transf (AST/SGOT) 38H, Alanine Aminotransferase (ALT/SGPT) 104H, Alkaline Phosphatase 73, Total Creatine Kinase 96, Total Protein 7.5, Albumin 3.6, Albumin/Globulin Ratio 0.9L, Thyroid Stimulating Hormone (TSH) 0.692, Human Chorionic Gonadotropin, Qual NEGATIVE, Salicylates Level < 1.7L, Urine Opiates Screen NEGATIVE, Urine Methadone Screen NEGATIVE, Acetaminophen Level < 2.0L, Urine Barbiturates Screen NEGATIVE, Urine Phencyclidine Screen NEGATIVE, Urine Amphetamines Screen NEGATIVE, Urine Benzodiazepines Screen NEGATIVE, Urine Cocaine Metabolite Screen NEGATIVE, Urine Cannabinoids Screen NEGATIVE, Ethyl Alcohol Level < 0.003 02/17/21 18:12: Lactic Acid Level 1.6, Coronavirus (COVID-19)(PCR) NEGATIVE, Influenza Type A (RT-PCR) NEGATIVE, Influenza Type B (RT-PCR) NEGATIVE, Respiratory Syncytial Virus (PCR) NEGATIVE 02/17/21 21:27: Bedside Glucose (Misc Panel) 109H 02/18/21 05:41: Nucleated Red Blood Cells % (auto) 0.0, Anion Gap 8, Glomerular Filtration Rate > 60.0, Calcium Level 8.6, Total Bilirubin 0.5, Aspartate Amino Transf (AST/SGOT) 40H, Alanine Aminotransferase (ALT/SGPT) 97H, Alkaline Phosphatase 66, Total Protein 6.8, Albumin 3.4, Albumin/Globulin Ratio 1.0L, Estimated Mean Plasma Glucose 126H, Hemoglobin A1c 6.0, Magnesium Level 2.1 CBC/BMP Laboratory Tests 02/17/21 16:59 02/18/21 05:41 EVELINA CARBALLO DO Feb 18, 2021 11:37
--- NOTE | 2021-02-18 17:23 | ECGEPIP ---
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
--- NOTE | 2021-02-18 18:23 | MHIPNPDOC ---
[facility] Progress Note Progress Note DATE OF SERVICE: 02/18/21 HISTORY: As per Dr. Casanova notes: "Mrs. Barajas is a 30 year old female with 2 recent inpatient mental health hospitalizations who is here for suicide attempt by drug overdose. This morning, she denies any chest pain, dyspnea, or abdominal pain. Denies any anxiety or depression at this time. She tells me that yesterday she had received a letter from family court which was a trigger. She felt that she had a lot of stress and she could not handle the stress. We will continue monitoring on telemetry and obtaining EKGs. By 3 PM today, if EKGs are within normal, she may be cleared medically. Of note, patient had 2 recent inpatient mental health hospitalizations. One was in December 12, 2020 where she was hospitalized for suicidal ideations. Another was December 25, 2020 for suicide attempt by taking 30 tablets of Benadryl." VITAL SIGNS: See below. NEW TEST RESULTS: See below CURRENT MEDICATIONS: See below. MENTAL STATUS EXAMINATION: Patient is a 30-year old female, who is alert, dressed in hospital gown, laying in bed Speech: Normal in tone and volume, rapid Language skills are Intact Thought processes including: linear and coherent at this time Thought content: positive for SI, depressive thoughts, anxious thoughts Description of associations: not loose Description of abnormal or psychotic thoughts: Denies T/A/V hallucinations, den ies thought delusions Judgment: poor. Insight: fair Orientation: x 3 Recent and remote memory: intact Attention span and concentration: Good Language: No abnormalities observed Fund of knowledge: average. Mood: Depressed/anxious Affect: Congruent with mood DIAGNOSES: 1. Major Depressive Disorder 2. PTSD by history 3. Adjustment disorder history 4. R/O Bipolar disorder ASSESSMENT: She says she is still depressed and very anxious because she feels overwhelmed and she says she took a handful of Bupropion and Trazodone. She says she took about 8 Trazodone tablets ( 50 mgs) and took 8 tabletsof Bupropion ( 75 mgs). This is not the first time she takes an overdose, she is high risk, she needs to be transferred to [facility] but we don't have beds available. She can be tra nsferred as soon as beds are available. MANAGEMENT PLAN: As above TIME SPENT: 20 minutes. Vital Signs Vital Signs Date Time Temp Pulse Resp B/P (MAP) Pulse Ox O2 Delivery O2 Flow Rate FiO2 02/18/21 14:00 97.8 02/18/21 05:39 82 15 115/65 (82) 96 Room Air Laboratory Data 24H Labs Laboratory Tests 2 02/17/21 18:12: Lactic Acid Level 1.6, Coronavirus (COVID-19)(PCR) NEGATIVE, Influenza Type A (RT-PCR) NEGATIVE, Influenza Type B (RT-PCR) NEGATIVE, Respiratory Syncytial Virus (PCR) NEGATIVE 02/17/21 21:27: Bedside Glucose (Misc Panel) 109H 02/18/21 05:41: Nucleated Red Blood Cells % (auto) 0.0, Anion Gap 8, Glomerular Filtration Rate > 60.0, Estimated Mean Plasma Glucose 126H, Hemoglobin A1c 6.0, Calcium Level 8.6, Magnesium Level 2.1, Total Bilirubin 0.5, Aspartate Amino Transf (AST/SGOT) 40H, Alanine Aminotransferase (ALT/SGPT) 97H, Alkaline Phosphatase 66, Total Protein 6.8, Albumin 3.4, Albumin/Globulin Ratio 1.0L CBC/BMP Laboratory Tests 02/18/21 05:41 Current Medications Current Medications Medications (Trade) Dose Ordered Sig/Paty Route PRN Reason Start Time Stop Time Status Last Admin Dose Admin Dextrose (Dextrose 50%) 25 ml ASDIRECTED PRN IV SEE LABEL COMMENTS 02/17/21 20:00 02/18/21 11:34 DC Enoxaparin Sodium (Lovenox) 40 mg DAILY SC 02/18/21 09:00 02/18/21 09:44 Glucagon (Glucagon) 1 mg ASDIRECTED PRN SC SEE LABEL COMMENTS 02/17/21 20:00 02/18/21 11:34 DC Glucose (Glucose) 16 GM ASDIRECTED PRN PO SEE LABEL COMMENTS 02/17/21 20:00 02/18/21 11:34 DC Home Med (Home Med List Complete!) ASDIRECTED XX 02/17/21 18:45 02/17/21 18:45 DC Insulin Human Lispro (HumaLOG INSULIN) SEE PROTOCOL TABLE AC SC 02/18/21 07:30 02/18/21 11:34 DC Insulin Human Lispro (HumaLOG INSULIN) SEE PROTOCOL TABLE QHS SC 02/17/21 21:00 02/18/21 11:34 DC Pantoprazole Sodium (Protonix) 40 mg DAILY PO 02/18/21 09:00 02/18/21 09:44 Allergies Coded Allergies: No Known Allergies (Verified , 01/15/12) DOE DOUGLAS MD Feb 18, 2021 18:23
[2021-02-18] MEDS: CitaloPRAM (CeleXA) 20 MG TAB PO SCH (18:59)
[2021-02-18] MEDS: ARIPiprazole 2 MG TAB PO SCH (20:07)
[2021-02-18 21:40] VITALS: BP 107/65
--- NOTE | 2021-02-19 05:35 | ECGEPIP ---
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
[2021-02-19 05:58] VITALS: BP 107/62
[2021-02-19 06:45] LABS: HEMATOCRIT 38.2 % (36.0-47.0); HEMOGLOBIN 12.3 g/dl (12.0-15.5); MEAN CORPUSCULAR HGB CONC 32.2 g/dl (32.0-36.5); MEAN CORPUSCULAR VOLUME 83.8 fl (80.0-96.0); PLATELET COUNT, AUTOMATED 312 10^3/uL (150-450); RED BLOOD COUNT 4.56 10^6/uL (4.00-5.40); WHITE BLOOD COUNT 8.4 10^3/uL (4.0-10.0)
[2021-02-19 07:08] LABS: BLOOD UREA NITROGEN 8 MG/DL (7-18); CALCIUM LEVEL 8.8 MG/DL (8.5-10.1); CARBON DIOXIDE LEVEL 27 MEQ/L (21-32); CHLORIDE LEVEL 108 MEQ/L (98-107); CREATININE FOR GFR 0.79 MG/DL (0.55-1.30); GLOMERULAR FILTRATION RATE > 60.0 (>60); GLUCOSE, FASTING 104 MG/DL (70-100); POTASSIUM SERUM 3.8 MEQ/L (3.5-5.1); SODIUM LEVEL 141 MEQ/L (136-145)
[2021-02-19] MEDS: PANTOPRAZOLE 40MG TAB (PROTONIX) PO SCH (09:08)
[2021-02-19] MEDS: CitaloPRAM (CeleXA) 20 MG TAB PO SCH (09:08)
[2021-02-19] MEDS: ENOXAPARIN 40MG/0.4ML SYRINGE (J1650 PER 10MG) SC SCH (09:09)
--- NOTE | 2021-02-19 12:49 | IPNPDOC ---
Subjective Date Seen The patient was seen on 02/19/21. Subjective Chief Complaint/HPI Mrs. Barajas is a 30 year old female with 2 recent inpatient mental health hospitalizations who is here for suicide attempt by drug overdose. This morning, she denies any chest pain or dyspnea. Last EKG did not demonstrate qTC prolongation. Discontinued telemetry. Patient is medically stable to go to [facility]. Pending bed placement. Objective Physical Examination General Exam: Positive: Alert, Cooperative Eye Exam: Negative: Sclera icteric ENT Exam: Positive: Atraumatic Neck Exam: Positive: Supple Chest Exam: Positive: Clear to auscultation Heart Exam: Positive: Rate Normal, Regular Rhythm Abdomen Exam: Positive: Normal bowel sounds, Soft, Other (Obese); Negative: Tenderness Extremity Exam: Negative: Edema Neuro Exam: Positive: Normal Speech Psych Exam: Positive: Mental status NL, Mood NL Assessment /Plan Assessment Mrs. Barajas is a 30 year old female with 2 recent inpatient mental health hospitalizations who is here for suicide attempt by drug overdose. Poison control recommended 24-hour monitoring and repeat EKGs. By 3 PM, she would reach 24 hours. Last EKG at 4 PM. Patient's had past history of suicidal ideation and suicide attempt by overdose. Patient at high risk for future attempts. Psychiatry consulted, recommendations appreciated. Currently patient is on one-to-one sitter. Last EKG was negative for qTC prolongation. Telemetry was discontinued. Patient is medically stable to go to [facility]. Plan/VTE VTE Prophylaxis Ordered?: Yes Plan 1. Suicide attempt by overdosing on Wellbutrin and trazodone Patient had recent hospitalization for suicide attempt with Benadryl Hold Wellbutrin and trazodone One-to-one sitter Psychiatry consulted, recommendations appreciated 2. Depression Hold psych medication (bupropion, hydroxyzine, and trazodone) -Psychiatrist restarted aripiprazole and citalopram. 3. Metabolic syndrome Patient's HbA1c was 6 Patient may not have diabetes Okay to resume Metformin once discharged from medical 4. GERD Continue pantoprazole 5. DVT prophylaxis Lovenox Disposition: Patient is medically cleared to go to [facility]. Pending bed av ailability VS, I&O, 24H, [place] Vital Signs/I&O Vital Signs Date Time Temp Pulse Resp B/P (MAP) Pulse Ox O2 Delivery O2 Flow Rate FiO2 02/19/21 05:58 97.8 100 20 107/62 (77) 100 Room Air I&O- Last 24 Hours up to 6 AM0 02/19/21 06:00 Intake Total 960 ml Output Total 575 ml Balance 385 ml Laboratory Data 24H LABS Laboratory Tests 2 02/19/21 06:20: Nucleated Red Blood Cells % (auto) 0.0, Anion Gap 6L, Glomerular Filtration Rate > 60.0, Calcium Level 8.8 CBC/BMP Laboratory Tests 02/19/21 06:20 EVELINA CARBALLO DO Feb 19, 2021 12:49
[2021-02-19 14:00] VITALS: BP 107/61
--- NOTE | 2021-02-19 18:30 | REP ---
INDICATION: Patient feels that there is glass in left foot. COMPARISON: None. TECHNIQUE: Four views of the left foot. FINDINGS: Four views of the left foot demonstrate normal bones, joints, and soft tissues. No fracture or subluxation is seen. No opaque foreign body noted. IMPRESSION: Negative left foot series. <Electronically signed by Darryl Viramontes > 02/19/21 [id number]
[2021-02-19] MEDS: ARIPiprazole 2 MG TAB PO SCH (19:59)
--- NOTE | 2021-02-19 21:14 | DS.PDOC ---
Discharge Summary General Date of Admission Feb 17, 2021 Date of Discharge Feb 19, 2021 Specialist/Consultants Involve Psychiatry, Dr. Zuñiga Discharge Summary PROCEDURES PERFORMED DURING STAY: None ADMITTING DIAGNOSES: 1. Suicide attempt by intentional drug overdose 2. Depression 3. Metabolic syndrome 4. Obesity 5. GERD DISCHARGE DIAGNOSES: 1. Suicide attempt by intentional drug overdose 2. Depression 3. Metabolic syndrome 4. Obesity 5. GERD COMPLICATIONS/CHIEF COMPLAINT: Overdose. HISTORY OF PRESENT ILLNESS: Copied from admitting provider's H&P " 30-year-old female history of depression and prior suicide attempts. So the hospital because of drug overdose. Patient tells me that around 3:00 in the evening she took 8 pills of Wellbutrin as well as 6 pills of trazodone after which she proceeded to call the psychiatry hotline and she discussed with them her feelings of depression and thoughts of hurting herself but she did not disclose to them that she took the pills they sent him over to her house and she was brought to the hospital. Poison control was contacted from the emergency department and activated charcoal was administered. EKG showed normal sinus rhythm without a prolonged QTC. Poison control recommended admission for observation on telemetry monitoring and repeating the EKG every 8 hours. I spoke to the patient she tells me she's feeling well she's hungry and no point did she lose consciousness and she doesn't want to hurt herself again at this time. She denies any chest pain or shortness of breath she denies any lightheadedness denies any nausea or vomiting. Patient will be admitted to the medicine service with a sitter per poison control's recommendations after which psychiatry will determine if they will admit her to the inpatient mental health unit. " HOSPITAL COURSE: Patient did well during hospitalization. At 24 hours, patient had EKG which did not demonstrate any qTC prolongation. Patient was medically cleared. Dr. Zuñiga evaluated that patient and recommended [facility]. Patient is at high risk for suicide as she had previous suicide attempt. Today, patient felt well. Denied chest pain or dyspnea. Later in the day, she complained about sensing glass in her foot. Ordered for XR foot which was negative for foreign object. Otherwise, patient will be discharged to [facility] this evening DISCHARGE MEDICATIONS: Please see below. ALLERGIES: Please see below. PHYSICAL EXAMINATION ON DISCHARGE: VITAL SIGNS: Please see below. GENERAL: Comfortable, in no apparent distress HEENT: Head normocephalic, atraumatic NECK: Supple CARDIOVASCULAR EXAMINATION: Regular rate and rhythm RESPIRATORY EXAMINATION: Lungs clear to auscultation bilaterally ABDOMINAL EXAMINATION: Soft, non-tender, normal bowel sounds EXTREMITIES: No pitting edema bilaterally SKIN: Warm and dry NEUROLOGICAL EXAMINATION: CN 3-12 grossly intact PSYCHIATRIC EXAMINATION: Normal mood and affect LABORATORY DATA: Please see below. IMAGING: Radiologist interpretation Left foot XR Negative left foot series. PROGNOSIS: Good ACTIVITY: As tolerated. DIET: As tolerated DISCHARGE PLAN: [facility] DISPOSITION: [facility] DISCHARGE INSTRUCTIONS: 1. Please follow up with psychiatrist at [facility] 2. Follow up with PCP within a week after discharge from [facility] DISCHARGE CONDITION: Stable Total time spent on discharge planning, discharge summary, and medication reconciliation: 35 minutes Vital Signs/I&Os Vital Signs Date Time Temp Pulse Resp B/P (MAP) Pulse Ox O2 Delivery O2 Flow Rate FiO2 02/19/21 14:00 97.0 75 16 107/61 (76) 98 Room Air I&O- Last 24 Hours up to 6 AM 02/19/21 06:00 Intake Total 960 ml Output Total 575 ml Balance 385 ml Laboratory Data Labs 24H Laboratory Tests 2 02/19/21 06:20: Nucleated Red Blood Cells % (auto) 0.0, Anion Gap 6L, Glomerular Filtration Rate > 60.0, Calcium Level 8.8 CBC/BMP Laboratory Tests 02/19/21 06:20 Discharge Medications Scheduled Aripiprazole (Aripiprazole) 2 Mg Tablet, 2 MG PO QHS, (Reported) Citalopram Hydrobromide (Celexa) 40 Mg Tablet, 40 MG PO DAILY, (Reported) Metformin HCl (Metformin HCl) 500 Mg Tablet, 500 MG PO BID, (Reported) Pantoprazole Sodium (Pantoprazole Sodium) 40 Mg Tablet.dr, 40 MG PO DAILY, (Reported) Allergies Coded Allergies: No Known Allergies (Verified , 01/15/12) EVELINA CARBALLO DO Feb 19, 2021 21:14
[2021-02-19 22:00] VITALS: BP 113/55
== END 2021-02-20 00:30 | DRG 271 ==
LOC: M ED 16:17 → M ED INP 16:18 → ENRESERV 20:48 → M MSPAV 21:08 → OBSVTOIN 02-19 10:55
PROVIDERS: ADMIT Family Medicine; ATTEND Internal Medicine
DX: T43.292A Poisoning by other antidepressants, intentional self-harm, initial encounter (principal); Z68.43 Body mass index [BMI] 50.0-59.9, adult; T43.212A Poisoning by selective serotonin and norepinephrine reuptake inhibitors, intentional self-harm, initial encounter; E66.9 Obesity, unspecified; F32.9 Major depressive disorder, single episode, unspecified; Z79.899 Other long term (current) drug therapy; K21.9 Gastro-esophageal reflux disease without esophagitis; E88.81 Metabolic syndrome and other insulin resistance; F43.10 Post-traumatic stress disorder, unspecified

== ENCOUNTER 2021-02-19 23:14 | Inpatient (IN) | payer OTHER ==
[~2021-02-19] VITALS: Ht 167.6 cm; Wt 141.1 kg
[2021-02-19] MEDS ORDERED: MAALOX 30 ML SUSP *UDC PO PRN (23:25)
[2021-02-19] MEDS ORDERED: MOM 30ML SUSPENSION UDC PO PRN (23:25)
[2021-02-19] MEDS ORDERED: ACETAMINOPHEN TAB 650MG DOSE (2X325MG) PO PRN (23:25)
[2021-02-20 00:36] VITALS: BP 139/78
[2021-02-20] MEDS ORDERED: HOME MED LIST COMPLETE! XX SCH (01:10)
[2021-02-20] MEDS: PANTOPRAZOLE 40MG TAB (PROTONIX) PO SCH (08:42)
[2021-02-20] MEDS: CitaloPRAM (CeleXA) 20 MG TAB PO SCH (08:43)
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
[2021-02-20] MEDS: metFORMIN (GLUCOPHAGE) 500MG TAB PO SCH ×2 (12:17→17:00)
--- NOTE | 2021-02-20 13:18 | HPEPDOC ---
[facility] Medical History & Physical Date of Admission Feb 20, 2021 Date of Service: Feb 20, 2021 History and Physical CHIEF COMPLAINT: Suicidal attempt HISTORY OF PRESENT ILLNESS: 30-year-old female admitted to inpatient mental health unit for intentional drug overdose. Patient states this was an attempt at suicide and she does have history of prior suicide attempts. She was initially admitted to medical service for monitoring. She was deemed stable from a medical standpoint and subsequently discharged to inpatient mental health. On examination today en philippe denies any complaints. She denies shortness of breath, chest pain, abdominal pain, nausea, vomiting, diarrhea, headaches. PAST MEDICAL HISTORY: Depression Metabolic syndrome Obesity GERD PCOS SOCIAL HISTORY: Denies alcohol use Denies tobacco use Denies illicit drug use Prior suicide attempts with Benadryl Marital status has a young child in state custody FAMILY HISTORY: Reviewed and noncontributory. ALLERGIES: Please see below. REVIEW OF SYSTEMS: Negative except as per HPI. HOME MEDICATIONS: Please see below. PHYSICAL EXAMINATION: Vital Signs: reviewed and within normal limits General: NAD, sitting comfortably in chair HEENT: NC/AT, EOMI Neck: supple, no masses Chest: lungs CTA B/L Heart: +S1S2, RRR Abd: soft, NT, ND, +BS, obese Ext: no edema Skin: no rashes MSK: full ROM at large joints Neuro: no gross focal deficits Psych: AAOx3 LABORATORY DATA: See below. MICROBIOLOGY: Please see below. A/P: 30-year-old female admitted to inpatient mental health unit for intentional drug overdose as suicide attempt. #suicide attempt/ideation - as per primary team #PCOS - continue metformin #GERD - continue PPI Thank you for this consultation. Please reconsult as needed. Vital Signs Vital Signs Date Time Temp Pulse Resp B/P (MAP) Pulse Ox O2 Delivery O2 Flow Rate FiO2 02/20/21 00:36 97.7 79 16 139/78 (98) 98 Room Air Home Medications Scheduled Aripiprazole (Aripiprazole) 2 Mg Tablet, 2 MG PO QHS for . Citalopram Hydrobromide (Celexa) 40 Mg Tablet, 40 MG PO DAILY for . Metformin HCl (Metformin HCl) 500 Mg Tablet, 500 MG PO BID for . Pantoprazole Sodium (Pantoprazole Sodium) 40 Mg Tablet.dr, 40 MG PO DAILY for . Allergies Coded Allergies: No Known Allergies (Verified , 01/15/12) A-FIB/CHADSVASC A-FIB History Current/History of A-Fib/PAF?: No Age/Risk Factor Scoring CHADSVASC: CHADSVASC Response (Comments) Value Age Risk Factor Age < 65 years old 0 Gender Risk Factor Female 1 Hx of CHF No 0 Hx of HTN No 0 Hx of Stroke/TIA/or VTE No 0 Hx of Diabetes No 0 Hx of Vascular Disease No 0 Total 1 HERIBERTO BARGER MD Feb 20, 2021 13:18
[2021-02-20] MEDS ORDERED: INFLUENZA QUADRIVALENT PF VACCINE 0.5ML SYRINGE IM ONE (16:00)
[2021-02-20 16:14] VITALS: BP 121/66
[2021-02-20] MEDS: PRAZOSIN 1 MG CAP PO SCH (20:40)
[2021-02-20] MEDS: MIRTAZAPINE 15 MG TAB PO PRN (20:40)
[2021-02-20] MEDS ORDERED: ARIPiprazole 2 MG TAB PO SCH (21:00)
[2021-02-21 06:42] VITALS: BP 121/64
[2021-02-21] MEDS: PANTOPRAZOLE 40MG TAB (PROTONIX) PO SCH (08:12)
[2021-02-21] MEDS: CitaloPRAM (CeleXA) 20 MG TAB PO SCH (08:12)
[2021-02-21] MEDS: metFORMIN (GLUCOPHAGE) 500MG TAB PO SCH ×2 (08:13→17:07)
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
[2021-02-21] MEDS: OMEGA-3 1000MG CAPSULE PO SCH ×2 (12:35→20:30)
[2021-02-21 16:24] VITALS: BP 116/68
[2021-02-21] MEDS: PRAZOSIN 1 MG CAP PO SCH (20:30)
[2021-02-21] MEDS: MIRTAZAPINE 15 MG TAB PO PRN (20:30)
[2021-02-22 07:14] VITALS: BP 137/83
[2021-02-22] MEDS: metFORMIN (GLUCOPHAGE) 500MG TAB PO SCH ×2 (09:17→17:18)
[2021-02-22] MEDS: CitaloPRAM (CeleXA) 20 MG TAB PO SCH (09:18)
[2021-02-22] MEDS: OMEGA-3 1000MG CAPSULE PO SCH ×2 (09:19→20:54)
[2021-02-22] MEDS: PANTOPRAZOLE 40MG TAB (PROTONIX) PO SCH (09:19)
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
[2021-02-22 16:00] VITALS: BP 104/66
[2021-02-22] MEDS: PRAZOSIN 1 MG CAP PO SCH (20:54)
[2021-02-22] MEDS: MIRTAZAPINE 15 MG TAB PO PRN (22:11)
[2021-02-23 06:25] VITALS: BP 131/72
[2021-02-23] MEDS: CitaloPRAM (CeleXA) 20 MG TAB PO SCH (08:46)
[2021-02-23] MEDS: metFORMIN (GLUCOPHAGE) 500MG TAB PO SCH ×2 (08:46→17:02)
[2021-02-23] MEDS: OMEGA-3 1000MG CAPSULE PO SCH ×3 (08:46→20:51)
[2021-02-23] MEDS: PANTOPRAZOLE 40MG TAB (PROTONIX) PO SCH (08:46)
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
[2021-02-23 16:18] VITALS: BP 130/80
[2021-02-23] MEDS ORDERED: hydrOXYzine 25 MG TAB PO PRN (17:00)
[2021-02-23] MEDS ORDERED: IBUPROFEN 800 MG TAB PO PRN (20:10)
[2021-02-23] MEDS: PRAZOSIN 1 MG CAP PO SCH (20:49)
[2021-02-23] MEDS: MIRTAZAPINE 15 MG TAB PO PRN (21:50)
[2021-02-24 06:22] VITALS: BP 129/76
[2021-02-24] MEDS: metFORMIN (GLUCOPHAGE) 500MG TAB PO SCH ×2 (07:27→17:00)
[2021-02-24] MEDS: PANTOPRAZOLE 40MG TAB (PROTONIX) PO SCH (09:19)
[2021-02-24] MEDS: CitaloPRAM (CeleXA) 20 MG TAB PO SCH (09:20)
[2021-02-24] MEDS: OMEGA-3 1000MG CAPSULE PO SCH ×3 (09:36→21:09)
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
[2021-02-24 16:34] VITALS: BP 114/64
[2021-02-24] MEDS: MIRTAZAPINE 15 MG TAB PO PRN (21:08)
[2021-02-24] MEDS: PRAZOSIN 1 MG CAP PO SCH (21:09)
[2021-02-25 06:00] VITALS: BP 126/64
[2021-02-25] MEDS: CitaloPRAM (CeleXA) 20 MG TAB PO SCH (08:30)
[2021-02-25] MEDS: PANTOPRAZOLE 40MG TAB (PROTONIX) PO SCH (08:30)
[2021-02-25] MEDS: metFORMIN (GLUCOPHAGE) 500MG TAB PO SCH ×2 (08:30→17:02)
[2021-02-25] MEDS: OMEGA-3 1000MG CAPSULE PO SCH ×2 (08:30→20:50)
[2021-02-25 16:48] VITALS: BP 128/68
[2021-02-25 20:51] VITALS: BP 133/90
[2021-02-25] MEDS: PRAZOSIN 1 MG CAP PO SCH (20:51)
[2021-02-25] MEDS: MIRTAZAPINE 15 MG TAB PO PRN (21:28)
[2021-02-26 07:14] VITALS: BP 116/68
[2021-02-26] MEDS: metFORMIN (GLUCOPHAGE) 500MG TAB PO SCH (07:39)
[2021-02-26] MEDS: PANTOPRAZOLE 40MG TAB (PROTONIX) PO SCH (08:29)
[2021-02-26] MEDS: OMEGA-3 1000MG CAPSULE PO SCH (08:29)
[2021-02-26] MEDS: CitaloPRAM (CeleXA) 20 MG TAB PO SCH (08:30)
[2021-02-26] MEDS ORDERED: FISH1CAP26 PO (10:00)
[2021-02-26] MEDS ORDERED: MINI1CAP PO (10:00)
[2021-02-26] MEDS ORDERED: MIRT-62 PO (10:00)
[2021-02-26] MEDS ORDERED: ABIL1TAB11 PO (10:00)
[2021-02-26] MEDS ORDERED: CELE40TA PO (10:00)
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
== END 2021-02-26 12:15 | disposition home or self-care (01) | DRG 885 ==
LOC: M PSY 02-20 00:42
PROVIDERS: ADMIT Student in an Organized Health Care Education/Training Program; ATTEND Student in an Organized Health Care Education/Training Program
DX: F32.1 Major depressive disorder, single episode, moderate (principal); F41.1 Generalized anxiety disorder; F43.10 Post-traumatic stress disorder, unspecified; Z79.899 Other long term (current) drug therapy; E66.9 Obesity, unspecified; E28.2 Polycystic ovarian syndrome; K21.9 Gastro-esophageal reflux disease without esophagitis

== ENCOUNTER 2021-03-08 14:30 | Emergency (ER) | payer OTHER ==
[~2021-03-08] VITALS: Ht 167.6 cm; Wt 140.9 kg
[~2021-03-08 14:30] MED LIST changes: +ABIL1TAB11 PO; +FISH1CAP26 PO; +MINI1CAP PO; +MIRT-62 PO
--- OUTSIDE RECORDS SUMMARY | 2021-03-08 14:35 | CCD ---
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 Active confirmed 772620245 Problem PCOS (polycystic ovarian syndrome) E28.2 Activ e confirmed 238357731 Problem Anxiety F41.9 Active confirmed 20033000 Problem Morbid (severe) obesity due to excess calories E66 .01 Active confirmed 854199144 Problem Recurrent major depressive disorder, remission s tatus unspecified F33.9 Active confirmed 70509681 Problem Body mass index (BMI) of 45.0-49.9 in adult Z68.42 Active confirmed 743632550 Problem Light and infrequent menstruation N91.5 Active confirmed 767775662 Problem Body mass index [BMI]40.0-44.9, adult Z68.41 Ac tive confirmed 812076752 Problem Gastroesophageal reflux disease without esophagitis K21.9 Active confirmed 401224545 Problem Chronic tension-type headache, not intractable G44 .229 Active confirmed 996700204 ALLERGIES Allergen (clinical drug ingredient) Drug/Non Drug Allergy do cumented on EMR Reaction Allergy Type Onset Date Status Seasonal runny/itchy nose/headaches/itchy eyes Non Drug Allergy Active ENCOUNTERS from 1989 to 2021-01-18 Encounter Location Date Provider Diagnosis [facility] [id number] [place] [address] [place] [address] Dec, Meagan Rene IMMUNIZATIONS Vaccine Route Administration Date Status Influenza Pharmacy Given Unknown Jul 13, 2019 Adminis tered Influenza 6mo & up Fluzone IM Intramuscular Mar 25, 2016 Admi nistered SOCIAL HISTORY Tobacco Use: Social History Observation Description Date Details (start date - stop date) Never Smoker Sex Assigned At : Social History Observation Description Sex Assigned At Unknown Audit Question Answer Notes Total Score: 0 Interpretation: Alcohol Education Language: Question Answer Notes Languages spoken: Indian Quaker: Question Answer Notes Quaker 21 Advent Domestic Violence: Question Answer Notes Status: Sexual Hx: Question Answer Notes Had sex in the last 12 months (vaginal, oral, or anal)? No Have you ever had an STD? No Drug and Alcohol Question Answer Notes Total Score: 0 Interpretation: No problems reported Alcohol Screening: Question Answer Notes Did you have a drink containing alcohol in the past year? No Points 0 Interpretation Negative BMI Care Goal Follow-Up Question Answer Notes Above Normal BMI Follow-Up Dietary management educatio n, guidance, and counseling Tobacco Use: Question Answer Notes Are you a: never smoker REASON FOR REFERRAL No Information VITAL SIGNS No information MEDICATIONS Medication SIG (Take, Route, Frequency, Duration) Notes Start Da te End Date Status Pantoprazole Sodium 40 MG 1 tablet Orally Once a day for 90 days September, Active Prazosin HCl 2 MG 1 capsule at bedtime Orally Once a day Active Wellbutrin 75 MG 1 tablet Orally Twice a day Active CeleXA 20 MG 1.5 tablet Orally Once a day Active [facility] Magnesium 500 MG 1 tab Orally Daily for 30 Days Mar Not-Taking Riboflavin 100 MG 1 capsule Orally Once a day for 30 day(s) Mar, Not-Taking Pantoprazole Sodium 40 MG 1 tablet Orally Once a day for 30 day( s) Mar, Not-Taking medroxyPROGESTERone Acetate 5 MG 1 tablet with food Or ally Once a day for 5 day(s) Apr, Not-Taking Loratadine 10 MG 1 tablet Orally Once a day for 30 day(s) Oct, Not-Taking Sprintec 28 0.25-35 MG-MCG 1 tablet Orally Once a day for 28 day (s) Nov, Not-Taking ARIPiprazole 2 MG 1 tablet Orally Once a day for 30 day(s) HASN'T STARTED YET 01/12/21 Active PROCEDURES No Information RESULTS No Results REASON FOR VISIT Glucose Monitor MEDICAL (GENERAL) HISTORY Type Description Date Medical History ADHD Medical History Amenorrhea Medical History Medical History Depression/borderline personality disord er Medical History Hepatic steosis- CT 04/2016 Medical History PCOS Surgical History LEFT MIDDLE FINGER 04/2020 Hospitalization History Inpatient Mental Health - [facility] x2 12/25 021 Goals Section No Information Health Concerns No Information MEDICAL EQUIPMENT No Information MENTAL STATUS No Information FUNCTIONAL STATUS No Information ASSESSMENTS No Information PLAN OF TREATMENT No Information Insurance Providers Payer Name Payer Address Payer Phone Insured Name Patient Relati onship to Insured Coverage Start Date Coverage End Date [address] [phone] LEANDRA BERUMEN self
--- OUTSIDE RECORDS SUMMARY | 2021-03-08 14:35 | CCD | Continuity of Care Document ---
Author Author Eloisa MIRELES [place] Organization Unknown Address [address] [place] [address] Phone [phone] Care Team Providers Care Adult Secondary Education Instructor Name Role Phone Blas FloresM [phone] Problems Description No Information Available Social History Type Date Description Comments Sex Unknown Allergies, Adverse Reactions, Alerts Description No Information Available Medications Description No Information Available Immunizations Description No Information Available Vital Signs Description No Information Available Results Description No Information Available Procedures Description No Information Available Medical Devices Description No Information Available Encounters Description No Information Available Assessments Description No Information Available Plan of Treatment No Information Available Functional Status Description No Information Available Mental Status Description No Information Available Referrals Description No Information Available
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
--- OUTSIDE RECORDS SUMMARY | 2021-03-08 14:35 | CCD | Continuity of Care Document ---
Author Author Eloisa MIRELES Organization Unknown Address [address] [place] [address] Phone [phone] Care Team Providers Care Expediter Clerk Name Role Phone Blas Flores DO AUTM [phone] Problems Description No Information Available Social History Type Date Description Comments Sex Unknown Allergies, Adverse Reactions, Alerts Description No Information Available Medications Description No Information Available Immunizations Description No Information Available Vital Signs Description No Information Available Results Description No Information Available Procedures Description No Information Available Medical Devices Description No Information Available Encounters Description No Information Available Assessments Date Code Description Provider 02/16/2021 Z20.828 Contact with and (singleton spected) exposure to other viral communicable diseases KADY Chery Plan of Treatment No Information Available Functional Status Description No Information Available Mental Status Description No Information Available Referrals Description No Information Available
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
--- OUTSIDE RECORDS SUMMARY | 2021-03-08 14:36 | CCD ---
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 Name Role Phone Tawana SANDOVAL DO Unavailable Unavailable DAVIDIZENGATawana DO Unavailable Unavailable HUIZENGATawana DO Unavailable Unavailable DAVIDIZENGATawana DO Unavailable Unavailable HUIZENGATawana DO Unavailable Unavailable HUIZENGATawana DO Unavailable Unavailable HUIZENGATawana DO Unavailable Unavailable DAVIDIZENGATawana DO Unavailable Unavailable DAVDIIZENGATawana DO Unavailable Unavailable DAVIDIZENGATawana DO Unavailable Unavailable DAVIDIZENGATawana DO Unavailable Unavailable DAVIDIZENGATawana DO Unavailable Unavailable DAVIDIZENGATawana DO Unavailable Unavailable DAVIDIZENGATawana DO Unavailable Unavailable DAVIDIZENGA D ANTIONETTE DO Unavailable Unavailable DAVIDIZENGATawana DO Unavailable Unavailable DAVIDIZENGATawana DO Unavailable Unavailable DAVDIIZENGATawana DO Unavailable Unavailable HUIZENGA, Tawana ADAN DO Unavailable Unavailable HUIZENGA, Tawana ADAN DO Unavailable Unavailable HUIZENGA, Tawana ADAN DO Unavailable Unavailable HUIZENGA, Tawana ADAN DO Unavailable Unavailable HUIZENGA, Tawana ADAN DO Unavailable Unavailable HUIZENGA, Tawana ADAN DO Unavailable Unavailable HUIZENGA, Tawana ADAN DO Unavailable Unavailable HUIZENGA, Tawana ADAN DO Unavailable Unavailable HUIZENGA, Tawana ADAN DO Unavailable Unavailable HUIZENGA, Tawana ADAN DO Unavailable Unavailable HUIZENGA, Tawana ADAN DO Unavailable Unavailable HUIZENGA, Tawana ADAN DO Unavailable Unavailable HUIZENGA, Tawana ADAN DO Unavailable Unavailable HUIZENGA, Tawana ADAN DO Unavailable Unavailable HUIZENGA, Tawana ADAN DO Unavailable Unavailable HUIZENGA, Tawana ADAN DO Unavailable Unavailable HUIZENGA, Tawana ADAN DO Unavailable Unavailable HUIZENGA, Tawana ADAN DO Unavailable Unavailable HUIZENGA, Tawana ADAN DO Unavailable Unavailable HUIZENGA, Tawana ADAN DO Unavailable Unavailable HUIZENGA, Tawana ADAN DO Unavailable Unavailable HUIZENGA, Tawana ADAN DO Unavailable Unavailable HUIZENGA, Tawana ADAN DO Unavailable Unavailable HUIZENGA, Tawana ADAN DO Unavailable Unavailable HUIZENGA, Tawana ADAN DO Unavailable Unavailable HUIZENGA, Tawana ADAN DO Unavailable Unavailable HUIZENGA, Tawana ADAN DO Unavailable Unavailable HUIZENGA, Tawana ADAN DO Unavailable Unavailable HUIZENGA, Tawana ADAN DO Unavailable Unavailable HUIZENGA, Tawana ADAN DO Unavailable Unavailable HUIZENGA, Tawana ADAN DO Unavailable Unavailable HUIZENGA, Tawana ADAN DO Unavailable Unavailable HUIZENGA, Tawana ADAN DO Unavailable Unavailable HUIZENGA, Tawana ADAN DO Unavailable Unavailable HUIZENGA, Tawana ADAN DO Unavailable Unavailable HUIZENGA, Tawana ADAN DO Unavailable Unavailable HUIZENGA, Tawana ADAN DO Unavailable Unavailable HUIZENGA, Tawana ADAN DO Unavailable Unavailable HUIZENGA, Tawana ADAN DO Unavailable Unavailable HUIZENGA, Tawana ADAN DO Unavailable Unavailable HUIZENGA, Tawana ADAN DO Unavailable Unavailable HUIZENGA, Tawana ADAN DO Unavailable Unavailable HUIZENGA, Tawana ADAN DO Unavailable Unavailable HUIZENGA, Tawana ADAN DO Unavailable Unavailable HUIZENGA, Tawana ADAN DO Unavailable Unavailable HUIZENGA, D ANTIONETTE DO Unavailable Unavailable HUIZENGA, Tawana ADAN DO Unavailable Unavailable HUIZENGA, D ANTIONETTE DO Unavailable Unavailable HUIZENGA, D ANTIONETTE DO Unavailable Unavailable HUIZENGA, D ANTIONETTE DO Unavailable Unavailable HUIZENGA, D ANTIONETTE DO Unavailable Unavailable HUIZENGA, D ANTIONETTE DO Unavailable Unavailable HUIZENGA, D ANTIONETTE DO Unavailable Unavailable HUIZENGA, D ANTIONETTE DO Unavailable Unavailable HUIZENGA, D ANTIONETTE DO Unavailable Unavailable HUIZENGA, D ANTIONETTE DO Unavailable Unavailable HUIZENGA, D ANTIONETTE DO Unavailable Unavailable HUIZENGA, D ANTIONETTE DO Unavailable Unavailable HUIZENGA, D ANTIONETTE DO Unavailable Unavailable Groat, C Lorri Unavailable Groat, C Lorri Unavailable Groat, C Lorri Unavailable Groat, C Lorri Unavailable Groat, C Lorri Unavailable Groat, C Lorri Unavailable Groat, C Lorri Unavailable Groat, C Lorri Unavailable Groat, C Lorri Unavailable Groat, C Lorri Unavailable Groat, C Lorri Unavailable Groat, C Lorri Unavailable Groat, C Lorri Unavailable Groat, C Lorri Unavailable Groat, C Lorri Unavailable Groat, C Lorri Unavailable HUIZENGA, D ANTIONETTE DO Unavailable Unavailable HUIZENGA, D ANTIONETTE DO Unavailable Unavailable HUIZENGA, D ANTIONETTE DO Unavailable Unavailable HUIZENGA, D ANTIONETTE DO Unavailable Unavailable HUIZENGA, D ANTIONETTE DO Unavailable Unavailable HUIZENGA, D ANTIONETTE DO Unavailable Unavailable HUIZENGA, D ANTIONETTE DO Unavailable Unavailable HUIZENGA, Tawana ADAN DO Unavailable Unavailable HUIZENGA, Tawana ADAN DO Unavailable Unavailable HUIZENGA, Tawana ADAN DO Unavailable Unavailable HUIZENGA, Tawana ADAN DO Unavailable Unavailable HUIZENGA, Tawana ADAN DO Unavailable Unavailable HUIZENGA, Tawana ADAN DO Unavailable Unavailable HUIZENGA, Tawana ADAN DO Unavailable Unavailable HUIZENGA, Tawana ADAN DO Unavailable Unavailable HUIZENGA, Tawana ADAN DO Unavailable Unavailable HUIZENGA, Tawana ADAN DO Unavailable Unavailable HUIZENGA, Taawna ADAN DO Unavailable Unavailable HUIZENGA, Tawana ADAN DO Unavailable Unavailable HUIZENGA, Tawana ADAN DO Unavailable Unavailable HUIZENGA, Tawana ADAN DO Unavailable Unavailable HUIZENGA, Tawana ADAN DO Unavailable Unavailable HUIZENGA, Tawana ADAN DO Unavailable Unavailable HUIZENGA, Tawana ADAN DO Unavailable Unavailable HUIZENGA, Tawana ADAN DO Unavailable Unavailable HUIZENGA, Tawana ADAN DO Unavailable Unavailable HUIZENGA, Tawana ADAN DO Unavailable Unavailable HUIZENGA, Tawana ADAN DO Unavailable Unavailable HUIZENGA, Tawana ADAN DO Unavailable Unavailable HUIZENGA, Tawana ADAN DO Unavailable Unavailable HUIZENGA, Tawana ADAN DO Unavailable Unavailable HUIZENGA, Tawana ADAN DO Unavailable Unavailable HUIZENGA, Tawana ADAN DO Unavailable Unavailable HUIZENGA, Tawana ADAN DO Unavailable Unavailable HUIZENGA, Tawana ADAN DO Unavailable Unavailable HUIZENGA, Tawana ADAN DO Unavailable Unavailable HUIZENGA, Tawana ADAN DO Unavailable Unavailable HUIZENGA, Tawana ADAN DO Unavailable Unavailable HUIZENGA, Tawana ADAN DO Unavailable Unavailable HUIZENGA, Tawana ADAN DO Unavailable Unavailable HUIZENGA, Tawana ADAN DO Unavailable Unavailable HUIZENGA, Tawana ADAN DO Unavailable Unavailable HUIZENGA, Tawana ADAN DO Unavailable Unavailable HUIZENGA, Tawana ADAN DO Unavailable Unavailable HUIZENGA, Tawana ADAN DO Unavailable Unavailable HUIZENGA, Tawana ADAN DO Unavailable Unavailable HUIZENGA, Tawana ADAN DO Unavailable Unavailable HUIZENGA, Tawana ADAN DO Unavailable Unavailable HUIZENGA, Tawana ADAN DO Unavailable Unavailable HUIZENGA, Tawana ADAN DO Unavailable Unavailable HUIZENGA, Tawana ADAN DO Unavailable Unavailable HUIZENGA, Tawana ADAN DO Unavailable Unavailable HUIZENGA, D ANTIONETTE DO Unavailable Unavailable HUIZENGA, Tawana ADAN DO Unavailable Unavailable HUIZENGA, D ANTIONETTE DO Unavailable Unavailable HUIZENGA, Tawana ADAN DO Unavailable Unavailable HUIZENGA, Tawana ADAN DO Unavailable Unavailable HUIZENGA, Tawana ADAN DO Unavailable Unavailable HUIZENGA, Tawana ADAN DO Unavailable Unavailable HUIZENGA, Tawana ADAN DO Unavailable Unavailable HUIZENGA, Tawana ADAN DO Unavailable Unavailable HUIZENGA, Tawana ADAN DO Unavailable Unavailable HUIZENGA, Tawana ADAN DO Unavailable Unavailable HUIZENGA, Tawana ADAN DO Unavailable Unavailable HUIZENGA, Tawana ADAN DO Unavailable Unavailable HUIZENGA, Tawana ADAN DO Unavailable Unavailable HUIZENGA, Tawana ADAN DO Unavailable Unavailable HUIZENGA, Tawana ADAN DO Unavailable Unavailable HUIZENGA, Tawana ADAN DO Unavailable Unavailable HUIZENGA, Tawana ADAN DO Unavailable Unavailable HUIZENGA, Tawana ADAN DO Unavailable Unavailable HUIZENGA, Tawana ADAN DO Unavailable Unavailable HUIZENGA, Tawana ADAN DO Unavailable Unavailable HUIZENGA, Tawana ADAN DO Unavailable Unavailable HUIZENGA, Tawana ADAN DO Unavailable Unavailable HUIZENGA, Tawana ADAN DO Unavailable Unavailable HUIZENGA, Tawana ADAN DO Unavailable Unavailable CHIONMOLLY O YINA Unavailable Unavailable CHIONMOLLY O YINA Unavailable Unavailable CHIONMOLLY O YINA Unavailable Unavailable CHIONMOLLY O YINA Unavailable Unavailable CHIONMOLLY O YINA Unavailable Unavailable CHIONMOLLY O YINA Unavailable Unavailable CHIONMOLLY O YINA Unavailable Unavailable CHIONMOLLY O YINA Unavailable Unavailable CHIONUMA O YINA Unavailable Unavailable CHIONUMA O YINA Unavailable Unavailable CHIONUMA O YINA Unavailable Unavailable CHIONUMA O YINA Unavailable Unavailable CHIONUMA O YINA Unavailable Unavailable CHIONMOLLY O YINA Unavailable Unavailable CHIONMOLLY O YINA Unavailable Unavailable CHIONUMA O YINA Unavailable Unavailable CHIONMOLLY O YINA Unavailable Unavailable CHIONUMA O YINA Unavailable Unavailable CHIONMOLLY O YINA Unavailable Unavailable CHIONUMA, O YINA Unavailable Unavailable CHIONMOLLY O YINA Unavailable Unavailable CHIONMOLLY O YINA Unavailable Unavailable CHIONMOLLY O YINA Unavailable Unavailable CHIONUMA, O YINA Unavailable Unavailable CHIONUMA, O YINA MD Unavailable Unavailable CHIONUMA, O YINA MD Unavailable Unavailable CHIONUMA, O YINA MD Unavailable Unavailable CHIONUMA, O YINA MD Unavailable Unavailable CHIONUMA, O YINA MD Unavailable Unavailable CHIONUMA, O YINA MD Unavailable Unavailable CHIONUMA, O YINA MD Unavailable Unavailable CHIONUMA, O YINA MD Unavailable Unavailable XANDER, O YINA Unavailable Unavailable STEPHANIE BRADFORD MD Unavailable Unavailable STEPHANIE BRADFORD MD Unavailable Unavailable STEPHANIE BRADFORD MD Unavailable Unavailable STEPHANIE BRADFORD MD Unavailable Unavailable STEPHANIE BRADFORD MD Unavailable Unavailable STEPHANIE BRADFORD MD Unavailable Unavailable STEPHANIE BRADFORD MD Unavailable Unavailable STEPHANIE BRADFORD MD Unavailable Unavailable STEPHANIE BRADFORD MD Unavailable Unavailable STEPHANIE BRADFORD MD Unavailable Unavailable STEPHANIE BRADFORD MD Unavailable Unavailable STEPHANIE BRADFORD MD Unavailable Unavailable STEPHANIE BRADFORD MD Unavailable Unavailable STEPHANIE BRADFORD MD Unavailable Unavailable STEPHANIE BRADFORD MD Unavailable Unavailable STEPHANIE BRADFORD MD Unavailable Unavailable STEPHANIE BRADFORD MD Unavailable Unavailable STEPHANIE BRADFORD MD Unavailable Unavailable STEPHANIE BRADFORD MD Unavailable Unavailable STEPHANIE BRADFORD MD Unavailable Unavailable STEPHANIE BRADFORD MD Unavailable Unavailable STEPHANIE BRADFORD MD Unavailable Unavailable STEPHANIE BRADFORD MD Unavailable Unavailable STEPHANIE BRADFORD MD Unavailable Unavailable STEPHANIE BRADFORD MD Unavailable Unavailable STEPHANIE BARDFORD MD Unavailable Unavailable STEPHANIE BRADFORD MD Unavailable Unavailable STEPHANIE BRADFORD MD Unavailable Unavailable STEPHANIE BRADFORD MD Unavailable Unavailable STEPHANIE BRADFORD MD Unavailable Unavailable STEPHANIE BRADFORD MD Unavailable Unavailable STEPHANIE BRADFORD MD Unavailable Unavailable STEPHANIE BRADFORD MD Unavailable Unavailable STEPHANIE BRADFORD MD Unavailable Unavailable STEPHANIE BRADFORD MD Unavailable Unavailable STEPHANIE BRADFORD MD Unavailable Unavailable STEPHANIE BRADFORD MD Unavailable Unavailable STEPHANIE BRADFORD MD Unavailable Unavailable STEPHANIE BRADFORD MD Unavailable Unavailable STEPHANIE BRADFORD MD Unavailable Unavailable STEPHANIE BRADFORD MD Unavailable Unavailable STEPHANIE BRADFORD MD Unavailable Unavailable STEPHANIE BRADFORD MD Unavailable Unavailable STEPHANIE BRADFORD MD Unavailable Unavailable STEPHANIE BRADFORD MD Unavailable Unavailable STEPHANIE BRADFORD MD Unavailable Unavailable STEPHANIE BRADFORD MD Unavailable Unavailable STEPHANIE BRADFORD MD Unavailable Unavailable STEPHANIE BRADFORD MD Unavailable Unavailable STEPHANIE BRADFORD MD Unavailable Unavailable STEPHANIE BRADFORD MD Unavailable Unavailable STEPHANIE BRADFORD MD Unavailable Unavailable STEPHANIE BRADFORD MD Unavailable Unavailable STEPHANIE BRADFORD MD Unavailable Unavailable STEPHANIE BRADFORD MD Unavailable Unavailable STEPHANIE BRADFORD MD Unavailable Unavailable STEPHANIE BRADFORD MD Unavailable Unavailable STEPHANIE BRADFORD MD Unavailable Unavailable STEPHANIE BRADFORD MD Unavailable Unavailable STEPHANIE BRADFORD MD Unavailable Unavailable STEPHANIE BRADFORD MD Unavailable Unavailable STEPHANIE BRADFORD MD Unavailable Unavailable STEPHANIE BRADFORD MD Unavailable Unavailable STEPHANIE BRADFORD MD Unavailable Unavailable STEPHANIE BRADFORD MD Unavailable Unavailable STEPHANIE BRADFORD MD Unavailable Unavailable STEPHANIE BRADFORD MD Unavailable Unavailable STEPHANIE BRADFORD MD Unavailable Unavailable STEPHANIE BRADFORD MD Unavailable Unavailable STEPHANIE BRADFORD MD Unavailable Unavailable STEPHANIE BRADFORD MD Unavailable Unavailable STEPHANIE BRADFORD MD Unavailable Unavailable STEPHANIE BRADFORD MD Unavailable Unavailable STEPHANIE BRADFORD MD Unavailable Unavailable STEPHANIE BRADFORD MD Unavailable Unavailable STEPHANIE BRADFORD MD Unavailable Unavailable STEPHANIE BRADFORD MD Unavailable Unavailable STEPHANIE BRADFORD MD Unavailable Unavailable STEPHANIE BRADFORD MD Unavailable Unavailable STEPHANIE BRADFORD MD Unavailable Unavailable STEPHANIE BRADFORD MD Unavailable Unavailable STEPHANIE BRADFORD MD Unavailable Unavailable STEPHANIE BRADFORD MD Unavailable Unavailable STEPHANIE BRADFORD MD Unavailable Unavailable STEPHANIE BRADFORD MD Unavailable Unavailable NEEDED NEEDED, INFO Unavailable Unavailable Bailey, Brendan Unavailable Bailey, Brendan Unavailable CRAIG, W SWAPNIL PA Unavailable Unavailable CRAIG, W SWAPNIL PA Unavailable Unavailable CRAIG, W SWAPNIL PA Unavailable Unavailable CRAIG, W SWAPNIL PA Unavailable Unavailable CRAIG, W SWAPNIL PA Unavailable Unavailable CRAIG, W SWAPNIL PA Unavailable Unavailable CRAIG, W SWAPNIL PA Unavailable Unavailable CRAIG, W SWAPNIL PA Unavailable Unavailable CRAIG, W SWAPNIL PA Unavailable Unavailable CRAIG, W SWAPNIL PA Unavailable Unavailable CRAIG, W SWAPNIL PA Unavailable Unavailable CRAIG, W SWAPNIL PA Unavailable Unavailable CRAIG, W SWAPNIL PA Unavailable Unavailable CRAIG, W SWAPNIL PA Unavailable Unavailable CRAIG, W SWAPNIL PA Unavailable Unavailable CRAIG, W SWAPNIL PA Unavailable Unavailable CRAIG, W SWAPNIL PA Unavailable Unavailable CRAIG, W SWAPNIL PA Unavailable Unavailable CRAIG, W SWAPNIL PA Unavailable Unavailable CRAIG, W SWAPNIL PA Unavailable Unavailable CRAIG, W SWAPNIL PA Unavailable Unavailable CRAIG, W SWAPNIL PA Unavailable Unavailable CRAIG, W SWAPNIL PA Unavailable Unavailable CRAIG, W SWAPNIL PA Unavailable Unavailable CRAIG, W SWAPNIL PA Unavailable Unavailable CRAIG, W SWAPNIL PA Unavailable Unavailable CRAIG, W SWAPNIL PA Unavailable Unavailable CRAIG, W SWAPNIL PA Unavailable Unavailable CRAIG, W SWAPNIL PA Unavailable Unavailable CRAIG, W SWAPNIL PA Unavailable Unavailable CRAIG, W SWAPNIL PA Unavailable Unavailable CRAIG, W SWAPNIL PA Unavailable Unavailable CRAIG, W SWAPNIL PA Unavailable Unavailable CRAIG, W SWAPNIL PA Unavailable Unavailable CRAIG, W SWAPNIL PA Unavailable Unavailable CRAIG, W SWAPNIL PA Unavailable Unavailable CRAIG, W SWAPNIL PA Unavailable Unavailable CRAIG, W SWAPNIL PA Unavailable Unavailable CRAIG, W SWAPNIL PA Unavailable Unavailable CRAIG, W SWAPNIL PA Unavailable Unavailable CRAIG, W SWAPNIL PA Unavailable Unavailable CRAIG, W SWAPNIL PA Unavailable Unavailable CRAIG, W SWAPNIL PA Unavailable Unavailable CRAIG, W SWAPNIL PA Unavailable Unavailable RAHEEM KUMAR MD Unavailable Unavailable RAHEEM KUMAR MD Unavailable Unavailable RAHEEM KUMAR MD Unavailable Unavailable RAHEEM KUMAR MD Unavailable Unavailable RAHEEM KUMAR MD Unavailable Unavailable RAHEEM KUMAR MD Unavailable Unavailable RAHEEM KUMAR MD Unavailable Unavailable RAHEEM KUMAR MD Unavailable Unavailable RAHEEM KUMAR MD Unavailable Unavailable RAHEEM KUMAR MD Unavailable Unavailable RAHEEM KUMAR MD Unavailable Unavailable RAHEEM KUMAR MD Unavailable Unavailable RAHEEM KUMAR MD Unavailable Unavailable RAHEEM KUMAR MD Unavailable Unavailable RAHEEM KUMAR MD Unavailable Unavailable RAHEEM KUMAR MD Unavailable Unavailable RAHEEM KUMAR MD Unavailable Unavailable RAHEEM KUMAR MD Unavailable Unavailable RAHEEM KUMAR MD Unavailable Unavailable RAHEEM KUMAR MD Unavailable Unavailable RAHEEM KUMAR MD Unavailable Unavailable RAHEEM KUMAR MD Unavailable Unavailable RAHEEM KUMAR MD Unavailable Unavailable RAHEEM KUMAR MD Unavailable Unavailable RAHEEM KUMAR MD Unavailable Unavailable RAHEEM KUMAR MD Unavailable Unavailable RAHEEM KUMAR MD Unavailable Unavailable RAHEEM KUMAR MD Unavailable Unavailable RAHEEM KUMAR MD Unavailable Unavailable RAHEEM KUMAR MD Unavailable Unavailable RAHEEM KUMAR MD Unavailable Unavailable RAHEEM KUMAR MD Unavailable Unavailable RAHEEM KUMAR MD Unavailable Unavailable RAHEEM KUMAR MD Unavailable Unavailable RAHEEM KUMAR MD Unavailable Unavailable RAHEEM KUMAR MD Unavailable Unavailable RAHEEM KUMAR MD Unavailable Unavailable RAHEEM KUMAR MD Unavailable Unavailable RAHEEM KUMAR MD Unavailable Unavailable RAHEEM KUMAR MD Unavailable Unavailable RAHEEM KUMAR MD Unavailable Unavailable Ana, Reginaenma W Mamta ELECTRIC SEALING MACHINE OPERATOR-C Unavailable Unavailabl e Ana, Reginah W Mamta ELECTRIC SEALING MACHINE OPERATOR-C Unavailable Unavailabl e Ana, Regina W Mamta ELECTRIC SEALING MACHINE OPERATOR-C Unavailable Unavailabl e Ana, Regina W Mamta ELECTRIC SEALING MACHINE OPERATOR-C Unavailable Unavailabl e Ana, Regina W Mamta ELECTRIC SEALING MACHINE OPERATOR-C Unavailable Unavailabl e Ana, Regina W Mamta ELECTRIC SEALING MACHINE OPERATOR-C Unavailable Unavailabl e Ana, Regina W Mamta ELECTRIC SEALING MACHINE OPERATOR-C Unavailable Unavailabl e Ana, Regina W Mamta ELECTRIC SEALING MACHINE OPERATOR-C Unavailable Unavailabl e Ana, Regina W Mamta ELECTRIC SEALING MACHINE OPERATOR-C Unavailable Unavailabl e Ana, Regina W Mamta ELECTRIC SEALING MACHINE OPERATOR-C Unavailable Unavailabl e Ana, Regina W Mamta ELECTRIC SEALING MACHINE OPERATOR-C Unavailable Unavailabl e Ana, Regina W Mamta ELECTRIC SEALING MACHINE OPERATOR-C Unavailable Unavailabl e Ana, Regina W Mamta ELECTRIC SEALING MACHINE OPERATOR-C Unavailable Unavailabl e Ana, Regina W Mamta ELECTRIC SEALING MACHINE OPERATOR-C Unavailable Unavailabl e Ana, Regina W Mamta ELECTRIC SEALING MACHINE OPERATOR-C Unavailable Unavailabl e Ana, Regina W Mamta ELECTRIC SEALING MACHINE OPERATOR-C Unavailable Unavailabl e Ana, Regina W Mamta ELECTRIC SEALING MACHINE OPERATOR-C Unavailable Unavailabl e Ana, Regina W Mamta ELECTRIC SEALING MACHINE OPERATOR-C Unavailable Unavailabl e Ana, Regina W Mamta ELECTRIC SEALING MACHINE OPERATOR-C Unavailable Unavailabl e Ana, Regina W Mamta ELECTRIC SEALING MACHINE OPERATOR-C Unavailable Unavailabl e Ana, Reggris Sosa Mamta ELECTRIC SEALING MACHINE OPERATOR-C Unavailable Unavailabl e Ana, Reggris W Mamta ELECTRIC SEALING MACHINE OPERATOR-C Unavailable Unavailabl e Ana, Reginah W Mamta ELECTRIC SEALING MACHINE OPERATOR-C Unavailable Unavailabl e Ana, Reginah W Mamta ELECTRIC SEALING MACHINE OPERATOR-C Unavailable Unavailabl e Ana, Reginah W Mamta ELECTRIC SEALING MACHINE OPERATOR-C Unavailable Unavailabl e Ana, Reginah W Mamta ELECTRIC SEALING MACHINE OPERATOR-C Unavailable Unavailabl e Ana, Reginah W Mamta ELECTRIC SEALING MACHINE OPERATOR-C Unavailable Unavailabl e Ana, Reginah W Mamta ELECTRIC SEALING MACHINE OPERATOR-C Unavailable Unavailabl e Ana, Reginah W Mamta ELECTRIC SEALING MACHINE OPERATOR-C Unavailable Unavailabl e Ana, Reginah W Mamta ELECTRIC SEALING MACHINE OPERATOR-C Unavailable Unavailabl e Ana, Estherh W Mamta ELECTRIC SEALING MACHINE OPERATOR-C Unavailable Unavailabl e Ana, Estherh W Mamta ELECTRIC SEALING MACHINE OPERATOR-C Unavailable Unavailabl e Corameyae, Rani Unavailable Corbine, Arni Unavailable Corbine, Rani Unavailable CORAMEYAE, S RANI Unavailable Unavailable CORAMEYAE S RANI Unavailable Unavailable LA RODRIGUEZ MD Unavailable Unavailable ABOUGLA TRIPP MD Unavailable Unavailable LA RODRIGUEZ MD Unavailable Unavailable LA RODRIGUEZ MD Unavailable Unavailable LA RODRIGUEZ MD Unavailable Unavailable ABOUGLA TRIPP MD Unavailable Unavailable ABOUGLA TRIPP MD Unavailable Unavailable ABOUGLA TRIPP MD Unavailable Unavailable LA RODRIGUEZ MD Unavailable Unavailable LA RODRIGUEZ MD Unavailable Unavailable LA RODRIGUEZ MD Unavailable Unavailable LA RODRIGUEZ MD Unavailable Unavailable LA RODRIGUEZ MD Unavailable Unavailable LA RODRIGUEZ MD Unavailable Unavailable LA RODRIGUEZ MD Unavailable Unavailable LA RODRIGUEZ MD Unavailable Unavailable LA RODRIGUEZ MD Unavailable Unavailable NIURKAUGLA TRIPP MD Unavailable Unavailable ABOUGLA TRIPP MD Unavailable Unavailable ABOUGOU, LA BARRETT MD Unavailable Unavailable ABOUGOU, LA BARRETT MD Unavailable Unavailable ABOUGOU, LA BARRETT MD Unavailable Unavailable ABOUGOU, LA BARRETT MD Unavailable Unavailable ABOUGOU, LA BARRETT MD Unavailable Unavailable ABOUGOU, LA BARRETT MD Unavailable Unavailable ABOUGOU, LA BARRETT MD Unavailable Unavailable ABOUGOU, LA BARRETT MD Unavailable Unavailable ABOUGOU, LA BARRETT MD Unavailable Unavailable ABOUGOU, LA BARRETT MD Unavailable Unavailable ABOUGOU, LA BARRETT MD Unavailable Unavailable ABOUGOU, LA BARRETT MD Unavailable Unavailable ABOUGOU, LA BARRETT MD Unavailable Unavailable ABOUGOU, LA BARRETT MD Unavailable Unavailable Kailee BAILEY Unavailable Unavailable Zepeda, W Tang RPA-C Unavailable Unavailable Zepeda, W Tang RPA-C Unavailable Unavailable Zepeda, W Tang RPA-C Unavailable Unavailable Zepeda, W Tang RPA-C Unavailable Unavailable Zepeda, W Tang RPA-C Unavailable Unavailable Zepeda, W Tang RPA-C Unavailable Unavailable Zepeda, W Tang RPA-C Unavailable Unavailable Zepeda, W Tang RPA-C Unavailable Unavailable Zepeda, W Tang RPA-C Unavailable Unavailable Zepeda, W Tang RPA-C Unavailable Unavailable Zepeda, W Tang RPA-C Unavailable Unavailable Zepeda, W Tang RPA-C Unavailable Unavailable Zepeda, W Tang RPA-C Unavailable Unavailable Zepeda, W Tang RPA-C Unavailable Unavailable Zepeda, W Tang RPA-C Unavailable Unavailable Zepeda, W Tang RPA-C Unavailable Unavailable Zepeda, W Tang RPA-C Unavailable Unavailable HUIZENGTawana Miller DO Unavailable Unavailable HUIZENGATawana DO Unavailable Unavailable HUIZENGATawana DO Unavailable Unavailable HUIZENGATawana DO Unavailable Unavailable HUIZENGATawana DO Unavailable Unavailable HUIZENGATawana DO Unavailable Unavailable HUIZENGA D ANTIONETTE DO Unavailable Unavailable HUIZENGATawana DO Unavailable Unavailable HUIZENGA D ANTIONETTE DO Unavailable Unavailable HUIZENGATawana DO Unavailable Unavailable HUIZENGATawana DO Unavailable Unavailable HUIZENGATawana DO Unavailable Unavailable HUIZENGA D ANTIONETTE DO Unavailable Unavailable HUIZENGA D ANTIONETTE DO Unavailable Unavailable HUIZENGA D ANTIONETTE DO Unavailable Unavailable HUIZENGA Tawana ADAN DO Unavailable Unavailable HUIZENGA, Tawana ADAN DO Unavailable Unavailable HUIZENGA, Tawana ADAN DO Unavailable Unavailable HUIZENGA, Tawana ADAN DO Unavailable Unavailable HUIZENGA, Tawana ADAN DO Unavailable Unavailable HUIZENGA, Tawana ADAN DO Unavailable Unavailable HUIZENGA, Tawana ADAN DO Unavailable Unavailable HUIZENGA, Tawana ADAN DO Unavailable Unavailable HUIZENGA, Tawana ADAN DO Unavailable Unavailable HUIZENGA, Tawana ADAN DO Unavailable Unavailable HUIZENGA, Tawana ADAN DO Unavailable Unavailable HUIZENGA, Tawana ADAN DO Unavailable Unavailable HUIZENGA, Tawana ADAN DO Unavailable Unavailable HUIZENGA, Tawana ADAN DO Unavailable Unavailable HUIZENGA, Tawana ADAN DO Unavailable Unavailable HUIZENGA, Tawana ADAN DO Unavailable Unavailable HUIZENGA, Tawana ADAN DO Unavailable Unavailable HUIZENGA, Tawana ADAN DO Unavailable Unavailable HUIZENGA, Tawana ADAN DO Unavailable Unavailable HUIZENGA, Tawana ADAN DO Unavailable Unavailable HUIZENGA, Tawana ADAN DO Unavailable Unavailable HUIZENGA, Tawana ADAN DO Unavailable Unavailable HUIZENGA, Tawana ADAN DO Unavailable Unavailable HUIZENGA, Tawana ADAN DO Unavailable Unavailable HUIZENGA, Tawana ADAN DO Unavailable Unavailable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 radiopaque foreign body. IMPRESSION: No evidence of radiopaque foreign body Electronically signed in [id number] by: Johan Leon M.D. 05/06/2020 11:28 EST Name Value Range Interpretation Code Description Data [facility]) Supporting Document(s) Procedure Social History Code Duration Value Status Description Data Source(s ) Smoking 02/07/2021 12:00:00 AM EDT Never Smoker completed Never S moker eCW1 ([facility]) Smoking 02/07/2021 12:00:00 AM EDT Never Smoker completed Never S moker eCW1 ([facility]) Smoking 02/07/2021 12:00:00 AM EDT Never Smoker completed Never S moker eCW1 ([facility]) Smoking 01/12/2021 12:00:00 AM EDT Never Smoker completed Never S moker eCW1 ([facility]) Smoking 01/12/2021 12:00:00 AM EDT Never Smoker completed Never S moker eCW1 ([facility]) Smoking 01/12/2021 12:00:00 AM EDT Never Smoker completed Never S moker eCW1 ([facility]) Smoking 01/12/2021 12:00:00 AM EDT Never Smoker completed Never S moker eCW1 ([facility]) Smoking 10/10/2020 12:00:00 AM EDT Never Smoker completed Never S moker eCW1 ([facility]) Smoking 10/10/2020 12:00:00 AM EDT Never Smoker completed Never S moker eCW1 ([facility]) Smoking 03/30/2020 12:00:00 AM EST Never Smoker completed Never S moker eCW1 ([facility]) Smoking 03/30/2020 12:00:00 AM EST Never Smoker completed Never S moker eCW1 ([facility]) Smoking 03/30/2020 12:00:00 AM EST Never Smoker completed Never S moker eCW1 ([facility]) Smoking 03/30/2020 12:00:00 AM EST Never Smoker completed Never S moker eCW1 ([facility]) Vital Signs ID Date Data Source UNK Name Value Range Interpretation Code Description Data Source(s) Body weight 140.62 kg 140.62 kg eCW1 ([facility]) Body weight 310 [lb_av] 310 [lb_av] eCW1 ([facility]) Body height 66 [in_i] 66 [in_i] eCW1 ([facility]) Body mass index (BMI) [Ratio] 50.03 kg/m2 50.03 kg/m2 eCW1 ([facility]) Heart rate 74 /min 74 /min eCW1 ([facility]) Respiratory rate 18 /min 18 /min eCW1 ([facility]) Body temperature 97.6 [degF] 97.6 [degF] eCW1 ( [facility]) Systolic blood pressure 133 mm[Hg] 133 mm[Hg] e CW1 ([facility]) Diastolic blood pressure 78 mm[Hg] 78 mm[Hg] eCW1 ([facility]) Body weight 215.6 [lb_av] 215.6 [lb_av] eCW1 ([facility]) Body weight 97.8 kg 97.8 kg eCW1 ([facility]) Body height 66 [in_i] 66 [in_i] eCW1 ([facility]) Body mass index (BMI) [Ratio] 34.79 kg/m2 34.79 kg/m2 eCW1 ([facility]) Heart rate 81 /min 81 /min eCW1 ([facility]) Respiratory rate 18 /min 18 /min eCW1 ([facility]) Body temperature 98.1 [degF] 98.1 [degF] eCW1 ( [facility]) Systolic blood pressure 116 mm[Hg] 116 mm[Hg] e CW1 ([facility]) Diastolic blood pressure 67 mm[Hg] 67 mm[Hg] eCW1 ([facility]) Respiratory rate 18 /min 18 /min eCW1 ([facility]) Body weight 313 [lb_av] 313 [lb_av] eCW1 ([facility]) Body height 66 [in_i] 66 [in_i] eCW1 ([facility]) Body mass index (BMI) [Ratio] 50.51 kg/m2 50.51 kg/m2 eCW1 ([facility]) Heart rate 82 /min 82 /min eCW1 ([facility]) Body temperature 97.9 [degF] 97.9 [degF] eCW1 ( [facility]) Systolic blood pressure 100 mm[Hg] 100 mm[Hg] e CW1 ([facility]) Diastolic blood pressure 68 mm[Hg] 68 mm[Hg] eCW1 ([facility]) Body weight 315.12 [lb_av] 315.12 [lb_av] eCW1 ([facility]) Body height [in_i] eCW1 ([facility]) Body mass index (BMI) [Ratio] 50.86 kg/m2 50.86 kg/m2 eCW1 ([facility]) Heart rate 83 /min 83 /min eCW1 ([facility]) Respiratory rate 20 /min 20 /min eCW1 ([facility]) Body temperature 98.7 [degF] 98.7 [degF] eCW1 ( [facility]) Systolic blood pressure 126 mm[Hg] 126 mm[Hg] e CW1 ([facility]) Diastolic blood pressure 78 mm[Hg] 78 mm[Hg] eCW1 ([facility]) Patient Treatment Plan of Care Planned Activity Planned Date Details Description Data Source (s) Pravastatin Sodium 40 MG Oral Tablet 01/19/2021 12:00:00 AM EDT eCW1 ([facility]) Pravastatin Sodium 40 MG Oral Tablet 01/19/2021 12:00:00 AM EDT eCW1 ([facility]) Pravastatin Sodium 40 MG Oral Tablet 01/19/2021 12:00:00 AM EDT eCW1 ([facility]) Pravastatin Sodium 40 MG Oral Tablet 01/19/2021 12:00:00 AM EDT eCW1 ([facility]) pantoprazole 40 MG Delayed Release Oral Tablet 10/10/2020 12:00:00 AM EDT eCW1 ([facility]) pantoprazole 40 MG Delayed Release Oral Tablet 10/10/2020 12:00:00 AM EDT eCW1 ([facility]) pantoprazole 40 MG Delayed Release Oral Tablet 03/30/2020 12:00:00 AM EST eCW1 ([facility]) pantoprazole 40 MG Delayed Release Oral Tablet 03/30/2020 12:00:00 AM EST eCW1 ([facility]) pantoprazole 40 MG Delayed Release Oral Tablet 03/30/2020 12:00:00 AM EST eCW1 ([facility]) [facility] Magnesium 500 MG 03/30/2020 12:00:00 AM EST eCW1 ([facility]) Riboflavin 100 MG 03/30/2020 12:00:00 AM EST eCW1 ([facility]) [facility] Magnesium 500 MG 03/30/2020 12:00:00 AM EST eCW1 ([facility]) pantoprazole 40 MG Delayed Release Oral Tablet 03/30/2020 12:00:00 AM EST eCW1 ([facility]) Riboflavin 100 MG 03/30/2020 12:00:00 AM EST eCW1 ([facility]) Riboflavin 100 MG 03/30/2020 12:00:00 AM EST eCW1 ([facility]) [facility]S Magnesium 500 MG 03/30/2020 12:00:00 AM EST eCW1 ([facility]) pantoprazole 40 MG Delayed Release Oral Tablet 03/30/2020 12:00:00 AM EST eCW1 ([facility]) Riboflavin 100 MG 03/30/2020 12:00:00 AM EST eCW1 ([facility]) CVS Magnesium 500 MG 03/30/2020 12:00:00 AM EST eCW1 ([facility]) pantoprazole 40 MG Delayed Release Oral Tablet 03/30/2020 12:00:00 AM EST eCW1 ([facility])
[2021-03-08] MEDS ORDERED: ARIP10TA32 PO (14:44)
[2021-03-08 15:11] LABS: HEMATOCRIT 40.8 % (36.0-47.0); HEMOGLOBIN 13.2 g/dl (12.0-15.5); MEAN CORPUSCULAR HEMOGLOBIN 26.8 pg (27.0-33.0); MEAN CORPUSCULAR HGB CONC 32.4 g/dl (32.0-36.5); MEAN CORPUSCULAR VOLUME 82.9 fl (80.0-96.0); PLATELET COUNT, AUTOMATED 358 10^3/uL (150-450); RED BLOOD COUNT 4.92 10^6/uL (4.00-5.40); WHITE BLOOD COUNT 11.7 10^3/uL (4.0-10.0)
[2021-03-08 15:44] LABS: ACETAMINOPHEN LEVEL < 2.0 UG/ML (10.0-30.0); ALBUMIN 3.5 GM/DL (3.2-5.2); ALT/SGPT 50 U/L (12-78); BILIRUBIN,DIRECT 0.1 MG/DL (0.0-0.2); BILIRUBIN,TOTAL 0.4 MG/DL (0.2-1.0); BLOOD UREA NITROGEN 7 MG/DL (7-18); CALCIUM LEVEL 8.9 MG/DL (8.5-10.1); CARBON DIOXIDE LEVEL 28 MEQ/L (21-32); CHLORIDE LEVEL 105 MEQ/L (98-107); CREATININE FOR GFR 0.85 MG/DL (0.55-1.30); ETHYL ALCOHOL (ETHANOL) 0.004 % (0.000-0.010); GLOMERULAR FILTRATION RATE > 60.0 (>60); GLUCOSE, FASTING 135 MG/DL (70-100); POTASSIUM SERUM 4.2 MEQ/L (3.5-5.1); SALICYLATE LEVEL < 1.7 MG/DL (5.0-30.0); SODIUM LEVEL 139 MEQ/L (136-145); THYROID STIMULATING HORMONE 0.624 uIU/ML (0.358-3.740); TOTAL PROTEIN 7.6 GM/DL (6.4-8.2)
--- OUTSIDE RECORDS SUMMARY | 2021-03-08 15:46 | CCD ---
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 reported by [facility]. ID Date Data Source [id number] 12/25/2020 07:50:00 PM EDT [facility] Name Value Range Interpretation Code Description Data Yesica rce(s) Supporting Document(s) SARS coronavirus 2 RNA [Presence] in Res piratory specimen by ALEYDA with probe detection NEGATIVE [facility] This lab was ordered by [facility] a nd reported by [facility]. ID Date Data Source [id number] 12/12/2020 10:52:00 AM EDT [facility] Name Value Range Interpretation Code Description Data Yesica rce(s) Supporting Document(s) SARS coronavirus 2 RNA [Presence] in Res piratory specimen by ALEYDA with probe detection NEGATIVE [facility] This lab was ordered by [facility] a nd reported by [facility]. ID Date Data Source [id number] 11/08/2020 01:08:25 PM EDT [facility] PC[facility]: Leandra GarzonGabrielOB: 1990Provider: Xavier Bradford: 11/07/2020 Reason For VisitVerbal consent obtained from the patient for telemedicine visit. This assessment was done using telemedicine as a result of social distancing due to the outbreak of COVID-19. Leanrda Barajas is here today for Left middle [...] (SOS) Referral Treatment Treatment Status: Complete Done: [id number]/OT/Hand Therapy Duration : Six WeeksPT Frequency : [...] flexor tendon laceration and ulnar digital nerve hkplybdruk35/17/20left middle finger FDP tendon repair at distal [...] rce(s) Supporting Document(s) ID Date Data Source [id number] 11/07/2020 12:31:53 PM EDT [facility] PCName: Leandra LewOB: 1990Provider: Xavier [...] flexor tendon laceration and ulnar digital nerve djfzoogoek16/17/2 0left middle finger FDP tendon repair at [...] document was dictated and electronically signed using Team Everest software. A reasonable attempt at proof reading has been made to minimize errors. Please call with any questions. Signatures Electronically signed by : Xavier Bradford M.D.; Aug 08 2020 8:12AM EST (Author) Electronically signed by : Xavier Bradford M.D.; Nov 07 2020 12:31PM EST (Author) Name Value Range Interpretation Code Description Data Yesica rce(s) Supporting Document(s) ID Date Data Source [id number] 06/25/2020 09:20:31 AM EST [facility] PCName: Leandra GarzoneDOB: 1990Provider: Xavier [...] flexor tendon laceration and ulnar digital nerve ibmvcvrwud21/17/20left middle finger FDP tendon repair at distal insertion with pull-through suture; Lt middle finger ulnar digital nerve repair [id number] [id number] The patient's postoperative course appears to be [...] over the next 4-6 weeks. Therapy in [facility].Virtual visit discussed and allowable unless concerns.The [...] document was dictated and electronically signed using [employer] Everest software. A reasonable attempt at proof reading has been made to minimize errors. Please call with any questions. Signatures Electronically signed by : Xavier Bradford M.D.; Jun 25 2020 9:20AM EST (Author) Name Value Range Interpretation Code Description Data Yesica rce(s) Supporting Document(s) ID Date Data Source [id number] 05/27/2020 08:52:27 AM EST [facility] PCName: Leandra GarzoneDOB: 1990Provider: Adriana [...] rce(s) Supporting Document(s) ID Date Data Source [id number] 05/11/2020 01:27:00 PM EST [facility] Name Value Range Interpretation Code Description Data Yesica rce(s) Supporting Document(s) SARS coronavirus 2 RNA [Presence] in Res piratory specimen by ALEYDA with probe detection [facility] This lab was ordered by [facility] and reported by [facility]. ID Date Data Source [id number] 05/09/2020 09:03:53 AM EST [facility] PCName: Leandra GarzoneDOB: 1990Provider: Xavier BradfordOS: 05/08/2020 Reason For VisitLeandra Barajas is here today for Left middle finger. Patient is seen at the request of [facility]. Leandra Barajas is a new patient. Leandra presents for evaluation of laceration, sutures placed at [facility]. She is currently taking antibiotics, but unsure of the name. Other DOI/DOO: 05/06/20- Patient lacerated her finger on a knife. Patient is unemployed. Assessment 1. Laceration of finger (883.0) (S61.219A) Plan 1. Start: HYDROcodone-Acetaminophen 5-325 MG Oral Tablet ([place]); TAKE 1 TO 2 TABLETS EVERY 4 TO 6 HOURS NEEDED FOR PAIN. [id number] MDD:6 Rx By: Lorri Perez; Dispense: 0 Days ; #:25 Tablet; Refill: 0;For: Laceration of finger; ADRIANA = N; Sent To: [facility]; Last Updated By: Bijal Garcia; 05/08/2020 3:11:52 PM 2. PT/OT/Hand Therapy (SOS) Referral Treatment Treatment Status: Complete Done: [id number] Ordered;For: Acute postoperative pain, Hand joint pain; Ordered By: Xavier Bradford Performed: Order Comments: left handDorsal splintflexor tendon protocolTo start next week post operative Due: [id number]; Last Updated By: Justa De La Cruz; [...] document was dictated and electronically signed using Team Everest software. A reasonable attempt at proof reading has been made to minimize errors. Please call with any questions. Signatures Electronically signed by : Xavier Bradford M.D.; May 09 2020 9:03AM EST (Author) Name Value Range Interpretation Code Description Data [facility](s) Supporting Document(s) ID Date Data Source [id number] 05/06/2020 01:22:00 PM EST [facility] Patient: LEANDRA BARAJAS I Observation Report - [facility].VisitID: [id number] [place] [address] [phone], FRegistration Date/Time: 05/06/2020 09:27 Weight:136 kg (S). Height/Length:66 inches (S). BMI:48.4 FAMILY HISTORYNo significant family medical history. (Electronically signed by Tang Zepeda PA 05/06/2020 13:19) Name Value Range Interpretation Code Description Data [facility](s) Supporting Document(s) ID Date Data Source [id number] 05/06/2020 11:34:00 AM EST [facility] [...] Never Smoker completed Never S moker eCW1 ([facility]) Smoking 02/07/2021 12:00:00 AM EDT Never Smoker completed Never S moker eCW1 ([facility]) Smoking 02/07/2021 12:00:00 AM EDT Never Smoker completed Never S moker eCW1 ([facility]) Smoking 01/12/2021 12:00:00 AM EDT Never Smoker completed Never S moker eCW1 ([facility]) Smoking 01/12/2021 12:00:00 AM EDT Never Smoker completed Never S moker eCW1 ([facility]) Smoking 01/12/2021 12:00:00 AM EDT Never Smoker completed Never S moker eCW1 ([facility]) Smoking 01/12/2021 12:00:00 AM EDT Never Smoker completed Never S moker eCW1 ([facility]) Smoking 10/10/2020 12:00:00 AM EDT Never Smoker completed Never S moker eCW1 ([facility]) Smoking 10/10/2020 12:00:00 AM EDT Never Smoker completed Never S moker eCW1 ([facility]) Smoking 03/30/2020 12:00:00 AM EST Never Smoker completed Never S moker eCW1 ([facility]) Smoking 03/30/2020 12:00:00 AM EST Never Smoker completed Never S moker eCW1 ([facility]) Smoking 03/30/2020 12:00:00 AM EST Never Smoker completed Never S moker eCW1 ([facility]) Smoking 03/30/2020 12:00:00 AM EST Never Smoker completed Never S moker eCW1 ([facility]) Vital Signs ID Date Data Source UNK Name Value Range Interpretation Code Description Data Source(s) Body weight 140.62 kg 140.62 kg eCW1 ([facility]) Body weight 310 [lb_av] 310 [lb_av] eCW1 ([facility]) Diastolic blood pressure 78 mm[Hg] 78 mm[Hg] eCW1 ([facility]) Body height 66 [in_i] 66 [in_i] eCW1 ([facility]) Body mass index (BMI) [Ratio] 50.03 kg/m2 50.03 kg/m2 eCW1 ([facility]) Heart rate 74 /min 74 /min eCW1 ([facility]) Respiratory rate 18 /min 18 /min eCW1 ([facility]) Body temperature 97.6 [degF] 97.6 [degF] eCW1 ( [facility]) Systolic blood pressure 133 mm[Hg] 133 mm[Hg] e CW1 ([facility]) Body weight 215.6 [lb_av] 215.6 [lb_av] eCW1 ([facility]) Body weight 97.8 kg 97.8 kg eCW1 ([facility]) Body height 66 [in_i] 66 [in_i] eCW1 ([facility]) Body mass index (BMI) [Ratio] 34.79 kg/m2 34.79 kg/m2 eCW1 ([facility]) Heart rate 81 /min 81 /min eCW1 ([facility]) Respiratory rate 18 /min 18 /min eCW1 ([facility]) Body temperature 98.1 [degF] 98.1 [degF] eCW1 ( [facility]) Systolic blood pressure 116 mm[Hg] 116 mm[Hg] e CW1 ([facility]) Diastolic blood pressure 67 mm[Hg] 67 mm[Hg] eCW1 ([facility]) Body weight 313 [lb_av] 313 [lb_av] eCW1 ([facility]) Body height 66 [in_i] 66 [in_i] eCW1 ([facility]) Body mass index (BMI) [Ratio] 50.51 kg/m2 50.51 kg/m2 eCW1 ([facility]) Heart rate 82 /min 82 /min eCW1 ([facility]) Respiratory rate 18 /min 18 /min eCW1 ([facility]) Body temperature 97.9 [degF] 97.9 [degF] eCW1 ( [facility]) Systolic blood pressure 100 mm[Hg] 100 mm[Hg] e CW1 ([facility]) Diastolic blood pressure 68 mm[Hg] 68 mm[Hg] eCW1 ([facility]) Body weight 315.12 [lb_av] 315.12 [lb_av] eCW1 ([facility]) Body height [in_i] eCW1 ([facility]) Body mass index (BMI) [Ratio] 50.86 kg/m2 50.86 kg/m2 eCW1 ([facility]) Heart rate 83 /min 83 /min eCW1 ([facility]) Respiratory rate 20 /min 20 /min eCW1 ([facility]) Body temperature 98.7 [degF] 98.7 [degF] eCW1 ( [facility]) Systolic blood pressure 126 mm[Hg] 126 mm[Hg] e CW1 ([facility]) Diastolic blood pressure 78 mm[Hg] 78 mm[Hg] eCW1 ([facility]) Patient Treatment Plan of Care Planned Activity Planned Date Details Description Data Source (s) Pravastatin Sodium 40 MG Oral Tablet 01/19/2021 12:00:00 AM EDT eCW1 ([facility]) Pravastatin Sodium 40 MG Oral Tablet 01/19/2021 12:00:00 AM EDT eCW1 ([facility]) Pravastatin Sodium 40 MG Oral Tablet 01/19/2021 12:00:00 AM EDT eCW1 ([facility]) Pravastatin Sodium 40 MG Oral Tablet 01/19/2021 12:00:00 AM EDT eCW1 ([facility]) pantoprazole 40 MG Delayed Release Oral Tablet 10/10/2020 12:00:00 AM EDT eCW1 ([facility]) pantoprazole 40 MG Delayed Release Oral Tablet 10/10/2020 12:00:00 AM EDT eCW1 ([facility]) pantoprazole 40 MG Delayed Release Oral Tablet 03/30/2020 12:00:00 AM EST eCW1 ([facility]) pantoprazole 40 MG Delayed Release Oral Tablet 03/30/2020 12:00:00 AM EST eCW1 ([facility]) pantoprazole 40 MG Delayed Release Oral Tablet 03/30/2020 12:00:00 AM EST eCW1 ([facility]) CVS Magnesium 500 MG 03/30/2020 12:00:00 AM EST eCW1 ([facility]) Riboflavin 100 MG 03/30/2020 12:00:00 AM EST eCW1 ([facility]) CVS Magnesium 500 MG 03/30/2020 12:00:00 AM EST eCW1 ([facility]) pantoprazole 40 MG Delayed Release Oral Tablet 03/30/2020 12:00:00 AM EST eCW1 ([facility]) Riboflavin 100 MG 03/30/2020 12:00:00 AM EST eCW1 ([facility]) Riboflavin 100 MG 03/30/2020 12:00:00 AM EST eCW1 ([facility]) CVS Magnesium 500 MG 03/30/2020 12:00:00 AM EST eCW1 ([facility]) pantoprazole 40 MG Delayed Release Oral Tablet 03/30/2020 12:00:00 AM EST eCW1 ([facility]) Riboflavin 100 MG 03/30/2020 12:00:00 AM EST eCW1 ([facility]) CVS Magnesium 500 MG 03/30/2020 12:00:00 AM EST eCW1 ([facility]) pantoprazole 40 MG Delayed Release Oral Tablet 03/30/2020 12:00:00 AM EST eCW1 ([facility])
[2021-03-08 16:43] LABS: HCG, SERUM QUALITATIVE NEGATIVE (NEGATIVE)
[2021-03-08 17:08] LABS: AMPHETAMINES LEVEL URINE NEGATIVE (NEGATIVE); BARBITURATES URINE NEGATIVE (NEGATIVE); BENZODIAZEPINES URINE NEGATIVE (NEGATIVE); CANNABINOIDS URINE NEGATIVE (NEGATIVE); COCAINE METABOLITE URINE NEGATIVE (NEGATIVE); METHADONE URINE NEGATIVE (NEGATIVE); OPIATES URINE NEGATIVE (NEGATIVE); PHENCYCLIDINE URINE NEGATIVE (NEGATIVE)
--- NOTE | 2021-03-08 22:24 | MHIPNPDOC ---
[facility] Progress Note Progress Note DATE OF SERVICE: 03/08/21 Patient presents with suicidal ideations, meets criteria for involuntary admission, see PSA note for details. Vital Signs Vital Signs Date Time Temp Pulse Resp B/P (MAP) Pulse Ox O2 Delivery O2 Flow Rate FiO2 03/08/21 22:18 97.0 72 18 125/60 (81) 99 Room Air Laboratory Data 24H Labs Laboratory Tests 2 03/08/21 14:57: Nucleated Red Blood Cells % (auto) 0.0, Anion Gap 6L, Glomerular Filtration Rate > 60.0, Calcium Level 8.9, Total Bilirubin 0.4, Direct Bilirubin 0.1, Aspartate Amino Transf (AST/SGOT) 18, Alanine Aminotransferase (ALT/SGPT) 50, Alkaline Phosphatase 74, Total Protein 7.6, Albumin 3.5, Albumin/Globulin Ratio 0.9L, Thyroid Stimulating Hormone (TSH) 0.624, Human Chorionic Gonadotropin, Qual NEGATIVE, Salicylates Level < 1.7L, Acetaminophen Level < 2.0L, Ethyl Alcohol Level 0.004 03/08/21 16:27: Urine Opiates Screen NEGATIVE, Urine Methadone Screen NEGATIVE, Urine Barbiturates Screen NEGATIVE, Urine Phencyclidine Screen NEGATIVE, Urine Amphetamines Screen NEGATIVE, Urine Benzodiazepines Screen NEGATIVE, Urine Cocaine Metabolite Screen NEGATIVE, Urine Cannabinoids Screen NEGATIVE CBC/BMP Laboratory Tests 03/08/21 14:57 Allergies Coded Allergies: No Known Allergies (Verified , 01/15/12) SHABBIR MORENO MD Mar 08, 2021 22:24
[2021-03-09 06:15] LABS: RSV AMPLIFICATION NEGATIVE (NEGATIVE)
--- NOTE | 2021-03-09 08:33 | ECGEPIP ---
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
[2021-03-09] MEDS ORDERED: PANTOPRAZOLE 40MG TAB (PROTONIX) PO SCH (09:05)
[2021-03-09] MEDS ORDERED: CitaloPRAM (CeleXA) 20 MG TAB PO SCH (09:05)
[2021-03-09] MEDS ORDERED: ARIPiprazole 10 MG TAB PO SCH (09:05)
[2021-03-09] MEDS: metFORMIN (GLUCOPHAGE) 500MG TAB PO SCH ×2 (09:28→20:52)
[2021-03-09] MEDS ORDERED: REME15TA2 PO (10:09)
[2021-03-09] MEDS ORDERED: CITA20TA6 PO (10:09)
[2021-03-09] MEDS ORDERED: PRAZ2CAP PO (10:09)
[2021-03-09] MEDS ORDERED: HOME MED LIST COMPLETE! XX SCH (10:10)
[2021-03-09 21:02] VITALS: BP 131/77
[2021-03-10] MEDS ORDERED: CitaloPRAM (CeleXA) 20 MG TAB PO SCH (09:00)
[2021-03-10] MEDS ORDERED: ARIPiprazole 10 MG TAB PO SCH (21:00)
== END 2021-03-09 21:05 ==
LOC: M ED 14:30
DX: F32.A Depression, unspecified (principal); R45.851 Suicidal ideations; K21.9 Gastro-esophageal reflux disease without esophagitis

== ENCOUNTER → 2021-03-19 | Outpatient (REF) | payer OTHER ==
[~2021-03-19] MED LIST changes: +ARIP10TA32 PO; +REME15TA2 PO
[2021-03-20 13:49] LABS: APPEARANCE, URINE HAZY (CLEAR); BACTERIA, URINE AUTO NEGATIVE (NEGATIVE); BILIRUBIN, URINE AUTO NEGATIVE (NEGATIVE); BLOOD, URINE BLOOD NEGATIVE (NEGATIVE); COLOR, URINE YELLOW (YELLOW); GLUCOSE, URINE (UA) AUTO NEGATIVE (NEGATIVE); KETONE, URINE AUTO NEGATIVE (NEGATIVE); LEUKOCYTE ESTERASE, URINE AUTO NEGATIVE (NEGATIVE); NITRITE, URINE AUTO NEGATIVE (NEGATIVE); PROTEIN, URINE AUTO NEGATIVE (NEGATIVE); RBC, URINE AUTO 0 /HPF (0-3); SPECIFIC GRAVITY URINE AUTO 1.018 (1.002-1.035); SQUAMOUS EPITHELIAL CELL UR AU 4 /HPF (0-6); UROBILINOGEN, URINE AUTO 0.2 mg/dL (0.0-2.0); WBC, URINE AUTO 0 /HPF (0-3)
== END ==
LOC: M SFHCLERA 12:59
PROVIDERS: ATTEND Family Medicine
DX: R31.9 Hematuria, unspecified (principal)

== ENCOUNTER 2021-03-20 03:21 | Emergency (ER) | payer OTHER ==
[~2021-03-20] VITALS: Ht 167.6 cm; Wt 140.9 kg
[2021-03-20] MEDS ORDERED: GI COCKTAIL 50ML BTL(HYOSCYAMINE/MAALOX/LIDOCAINE VISCOUS)(1:3:1) PO ONE (04:30)
[2021-03-20 05:28] LABS: BLOOD UREA NITROGEN 8 MG/DL (7-18); CARBON DIOXIDE LEVEL 26 MEQ/L (21-32); CHLORIDE LEVEL 108 MEQ/L (98-107); GLOMERULAR FILTRATION RATE > 60.0 (>60); GLUCOSE, FASTING 123 MG/DL (70-100); POTASSIUM SERUM 4.1 MEQ/L (3.5-5.1); SODIUM LEVEL 142 MEQ/L (136-145)
--- NOTE | 2021-03-20 06:28 | ECGEPIP ---
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
[2021-03-20 06:30] VITALS: BP 119/63
== END 2021-03-20 06:33 | disposition home or self-care (01) ==
LOC: M ED 03:21
DX: K21.00 Gastro-esophageal reflux disease with esophagitis, without bleeding (principal); E11.9 Type 2 diabetes mellitus without complications; F41.9 Anxiety disorder, unspecified; Z79.899 Other long term (current) drug therapy

== ENCOUNTER 2021-03-26 17:31 | Observation (INO) | payer OTHER ==
[~2021-03-26] VITALS: Ht 167.6 cm; Wt 146.6 kg
[~2021-03-26 17:31] MED LIST changes: -D31000TA2 PO; -HYDR-3363 PO; -VIST25CA PO
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
[2021-03-26] MEDS ORDERED: HYDR-3363 PO (18:30)
[2021-03-26 18:41] LABS: BASO % 0.4 % (0.0-1.0); EOS # 0.1 10^3/uL (0.0-0.5); EOS % 1.3 % (0.0-3.0); HEMATOCRIT 38.4 % (36.0-47.0); HEMOGLOBIN 12.5 g/dl (12.0-15.5); LYMPH # 3.7 10^3/uL (1.5-5.0); LYMPH % 33.3 % (24.0-44.0); MEAN CORPUSCULAR HGB CONC 32.6 g/dl (32.0-36.5); MEAN CORPUSCULAR VOLUME 82.9 fl (80.0-96.0); MONO # 0.7 10^3/uL (0.0-0.8); MONO % 5.9 % (2.0-8.0); NEUTROPHILS # 6.4 10^3/uL (1.5-8.5); NEUTROPHILS % 58.6 % (36.0-66.0); PLATELET COUNT, AUTOMATED 342 10^3/uL (150-450); RED BLOOD COUNT 4.63 10^6/uL (4.00-5.40)
[2021-03-26 18:54] LABS: AMPHETAMINES LEVEL URINE NEGATIVE (NEGATIVE); BARBITURATES URINE NEGATIVE (NEGATIVE); BENZODIAZEPINES URINE NEGATIVE (NEGATIVE); CANNABINOIDS URINE NEGATIVE (NEGATIVE); COCAINE METABOLITE URINE NEGATIVE (NEGATIVE); METHADONE URINE NEGATIVE (NEGATIVE); OPIATES URINE NEGATIVE (NEGATIVE); PHENCYCLIDINE URINE NEGATIVE (NEGATIVE)
[2021-03-26 19:08] LABS: HCG, SERUM QUALITATIVE NEGATIVE (NEGATIVE)
[2021-03-26 19:16] LABS: ACETAMINOPHEN LEVEL < 2.0 UG/ML (10.0-30.0); ALBUMIN 3.4 GM/DL (3.2-5.2); ALT/SGPT 36 U/L (12-78); BILIRUBIN,DIRECT < 0.1 MG/DL (0.0-0.2); BILIRUBIN,TOTAL 0.3 MG/DL (0.2-1.0); BLOOD UREA NITROGEN 7 MG/DL (7-18); CARBON DIOXIDE LEVEL 24 MEQ/L (21-32); CHLORIDE LEVEL 109 MEQ/L (98-107); CPK CREATINE PHOSPHOKINASE 144 U/L (26-192); CREATININE FOR GFR 0.75 MG/DL (0.55-1.30); ETHYL ALCOHOL (ETHANOL) < 0.003 % (0.000-0.010); GLOMERULAR FILTRATION RATE > 60.0 (>60); GLUCOSE, FASTING 125 MG/DL (70-100); SALICYLATE LEVEL < 1.7 MG/DL (5.0-30.0); SODIUM LEVEL 140 MEQ/L (136-145); TOTAL PROTEIN 7.2 GM/DL (6.4-8.2)
[2021-03-26] MEDS ORDERED: ACETAMINOPHEN TAB 650MG DOSE (2X325MG) PO PRN (21:20)
--- NOTE | 2021-03-26 21:26 | HPEPDOC ---
[facility] Medical History & Physical Date of Admission Mar 26, 2021 Date of Service: Mar 26, 2021 Attending Physician: SCOTT CABRERA MD History and Physical CHIEF COMPLAINT: [30 y/o female presents to ED after an overdose attempt] HISTORY OF PRESENT ILLNESS: [This is a 30 y/o female with a pmh of gerd, pcos, metabolic syndrome who presents to the ED after taking several of her psychiatric medications today in an effort to harm herself. Patient tells me that her mother holds her medications for her and will only give her one weeks worth of pills at a time. So patient tells me that today as "part of her depression" she took 7 doses of her celexa, hydroxyzine and prazosin. Patient tells me that she has been depressed and has had an increase in life stressors that drove her to this. Patient, at the time of my exam, tells me that she feels fine and denies any headache, fevers, chills, uri sx, chest pain, palpitations, sob, abd pain, n/v/d/c, dysuria, pedal edema, syncope, paresthesias] PAST MEDICAL HISTORY: 1. [See HPI]. PAST SURGICAL HISTORY: 1. [Unspec. left middle finger surg]. SOCIAL HISTORY: Tobacco use:[Denies] ETOH: [Denies] Illicit drug use: [Denies] FAMILY HISTORY: Reviewed - none pertinent ALLERGIES: Please see below. REVIEW OF SYSTEMS: CONSTITUTIONAL: [Denies fevers, chills]. HEENT: [Denies uri sx]. CARDIOVASCULAR: [Denies chest pain, palpitations]. RESPIRATORY: [Denies sob, wheezing]. GASTROINTESTINAL: [Denies abd pain, n/v/d/c]. GENITOURINARY: [Denies dysuria]. SKIN: [Denies rash]. MUSCULOSKELETAL: [Denies acute joint/back pain]. NEUROLOGICAL: [Denies syncope, paresthesias]. PSYCHIATRIC: [See HPI]. ENDOCRINE: [Hx of metabolic syndrome]. HEMATOLOGIC/LYMPHATIC: [Denies hx of vte]. HOME MEDICATIONS: Please see below. PHYSICAL EXAMINATION: VITAL SIGNS: Please see below. GENERAL APPEARANCE: [30 y/o female who is resting in bed and alert and oriented to all questions. She does not appear to be in any acute distress]. HEENT: [No mass or lesion. EOMI. No scleral icterus. Nares patent. Oral mucosa moist]. CARDIOVASCULAR: [Borderline tachy rate, regular rhythm. No murmurs, rubs, gallops]. LUNGS: [Diminished breath sounds 2/2 body habitus. No wheezing, rales, rhonchi]. ABDOMEN: [Soft, nontender]. MUSCULOSKELETAL: [No joint deformity noted]. EXTREMITIES: [No pedal edema appreciated. Pulses intact. No overlying skin changes]. NEUROLOGICAL: [Speech clear. A+Ox3. No focal deficits]. PSYCHIATRIC: [Mood appears to be appropriate. Affect somewhat flat]. LABORATORY DATA: See below. IMAGING: [None performed] MICROBIOLOGY: Please see below. ASSESSMENT: [This is a 30 y/o female with a pmh of gerd, pcos, metabolic syndrome who presents to the ED after taking several of her psychiatric medications today in an effort to harm herself.]. . PLAN: 1. [Overdose - Concern for qt prolongation d/t celexa and hydroxyzine - Poison control recommend 24 hour obs with serial labs/ekgs - will trend ekgs/bmp/liver profile q6h - telemetry - 1 to 1 sitter w suicide precautions - will ask day team to reach out to psych in the am for consultation - holding psychiatric meds at this time - admit to med surg under obs with tele 2. GERD - continue protonix DVT prophylaxis - mechanical]. Vital Signs Vital Signs Date Time Temp Pulse Resp B/P (MAP) Pulse Ox O2 Delivery O2 Flow Rate FiO2 03/26/21 21:01 93 15 122/62 (82) 96 Room Air Laboratory Data Labs 24H Laboratory Tests 2 03/26/21 18:06: Urine Opiates Screen NEGATIVE, Urine Methadone Screen NEGATIVE, Urine Barbiturates Screen NEGATIVE, Urine Phencyclidine Screen NEGATIVE, Urine Amphetamines Screen NEGATIVE, Urine Benzodiazepines Screen NEGATIVE, Urine Cocaine Metabolite Screen NEGATIVE, Urine Cannabinoids Screen NEGATIVE 03/26/21 18:07: Immature Granulocyte % (Auto) 0.5, Neutrophils (%) (Auto) 58.6, Lymphocytes (%) (Auto) 33.3, Monocytes (%) (Auto) 5.9, Eosinophils (%) (Auto) 1.3, Basophils (%) (Auto) 0.4, Neutrophils # (Auto) 6.4, Lymphocytes # (Auto) 3.7, Monocytes # (Auto) 0.7, Eosinophils # (Auto) 0.1, Basophils # (Auto) 0.0, Nucleated Red Blood Cells % (auto) 0.0, Anion Gap 7L, Glomerular Filtration Rate > 60.0, Calcium Level 9.0, Total Bilirubin 0.3, Direct Bilirubin < 0.1, Aspartate Amino Transf (AST/SGOT) 13, Alanine Aminotransferase (ALT/SGPT) 36, Alkaline Luli sphatase 71, Total Creatine Kinase 144, Total Protein 7.2, Albumin 3.4, Albumin/Globulin Ratio 0.9L, Thyroid Stimulating Hormone (TSH) 1.030, Human Chorionic Gonadotropin, Qual NEGATIVE, Salicylates Level < 1.7L, Acetaminophen Level < 2.0L, Ethyl Alcohol Level < 0.003 03/26/21 18:40: Bedside Glucose (Misc Panel) 127H CBC/BMP Laboratory Tests 03/26/21 18:07 Home Medications Scheduled Aripiprazole (Aripiprazole) 10 Mg Tablet, 10 MG PO QHS Cholecalciferol (Vitamin D3) (Vitamin D3) 1,000 Unit Tablet, 1,000 UNITS PO QHS Citalopram Hydrobromide (Citalopram HBr) 20 Mg Tablet, 20 MG PO DAILY Mirtazapine (Remeron) 15 Mg Tablet, 15 MG PO QHS Pantoprazole Sodium (Pantoprazole Sodium) 40 Mg Tablet.dr, 40 MG PO DAILY Prazosin Hcl (Prazosin HCl) 2 Mg Capsule, 2 MG PO QHS Scheduled PRN Hydroxyzine Pamoate (Vistaril) 25 Mg Capsule, 25 MG PO Q6H PRN for ANXIETY Allergies Coded Allergies: No Known Allergies (Verified , 01/15/12) A-FIB/CHADSVASC A-FIB History Current/History of A-Fib/PAF?: No Current PO Anticoag Therapy: No MARTHA ESPANA Mar 26, 2021 21:26
[2021-03-26 23:32] LABS: RSV AMPLIFICATION NEGATIVE (NEGATIVE)
[2021-03-26] MEDS ORDERED: VIST25CA PO (23:47)
[2021-03-26] MEDS ORDERED: D31000TA2 PO (23:47)
[2021-03-26] MEDS ORDERED: MIRT-62 PO (23:47)
[2021-03-26] MEDS ORDERED: HOME MED LIST COMPLETE! XX SCH (23:50)
[2021-03-27 00:29] LABS: ALBUMIN 3.2 GM/DL (3.2-5.2); ALT/SGPT 32 U/L (12-78); BILIRUBIN,DIRECT < 0.1 MG/DL (0.0-0.2); BILIRUBIN,TOTAL 0.2 MG/DL (0.2-1.0); BLOOD UREA NITROGEN 8 MG/DL (7-18); CALCIUM LEVEL 8.7 MG/DL (8.5-10.1); CARBON DIOXIDE LEVEL 27 MEQ/L (21-32); CHLORIDE LEVEL 109 MEQ/L (98-107); CREATININE FOR GFR 0.75 MG/DL (0.55-1.30); GLOMERULAR FILTRATION RATE > 60.0 (>60); GLUCOSE, FASTING 137 MG/DL (70-100); POTASSIUM SERUM 4.1 MEQ/L (3.5-5.1); SODIUM LEVEL 140 MEQ/L (136-145); TOTAL PROTEIN 6.8 GM/DL (6.4-8.2)
[2021-03-27 00:30] VITALS: BP 124/83
[2021-03-27 06:00] VITALS: BP 122/79
[2021-03-27 07:48] LABS: ALBUMIN 3.2 GM/DL (3.2-5.2); ALT/SGPT 33 U/L (12-78); BILIRUBIN,DIRECT 0.1 MG/DL (0.0-0.2); BILIRUBIN,TOTAL 0.4 MG/DL (0.2-1.0); BLOOD UREA NITROGEN 8 MG/DL (7-18); CALCIUM LEVEL 8.5 MG/DL (8.5-10.1); CARBON DIOXIDE LEVEL 25 MEQ/L (21-32); CHLORIDE LEVEL 108 MEQ/L (98-107); CREATININE FOR GFR 0.73 MG/DL (0.55-1.30); GLOMERULAR FILTRATION RATE > 60.0 (>60); GLUCOSE, FASTING 112 MG/DL (70-100); SODIUM LEVEL 140 MEQ/L (136-145); TOTAL PROTEIN 6.8 GM/DL (6.4-8.2)
--- NOTE | 2021-03-27 08:27 | ECGEPIP ---
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
[2021-03-27] MEDS ORDERED: PANTOPRAZOLE 40MG TAB (PROTONIX) PO SCH (09:00)
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
[2021-03-27 14:00] VITALS: BP 127/69
[2021-03-27 14:02] LABS: BLOOD UREA NITROGEN 9 MG/DL (7-18); CALCIUM LEVEL 9.3 MG/DL (8.5-10.1); CARBON DIOXIDE LEVEL 24 MEQ/L (21-32); CHLORIDE LEVEL 108 MEQ/L (98-107); CREATININE FOR GFR 0.87 MG/DL (0.55-1.30); GLOMERULAR FILTRATION RATE > 60.0 (>60); GLUCOSE, FASTING 124 MG/DL (70-100); SODIUM LEVEL 138 MEQ/L (136-145)
[2021-03-27 14:04] LABS: ALBUMIN 3.5 GM/DL (3.2-5.2); ALT/SGPT 39 U/L (12-78); BILIRUBIN,DIRECT < 0.1 MG/DL (0.0-0.2); BILIRUBIN,TOTAL 0.3 MG/DL (0.2-1.0); TOTAL PROTEIN 7.5 GM/DL (6.4-8.2)
[2021-03-27 19:09] LABS: ALBUMIN 3.4 GM/DL (3.2-5.2); BILIRUBIN,DIRECT 0.1 MG/DL (0.0-0.2); BILIRUBIN,TOTAL 0.3 MG/DL (0.2-1.0); BLOOD UREA NITROGEN 9 MG/DL (7-18); CALCIUM LEVEL 9.2 MG/DL (8.5-10.1); CARBON DIOXIDE LEVEL 26 MEQ/L (21-32); CHLORIDE LEVEL 109 MEQ/L (98-107); CREATININE FOR GFR 0.85 MG/DL (0.55-1.30); GLOMERULAR FILTRATION RATE > 60.0 (>60); GLUCOSE, FASTING 154 MG/DL (70-100); POTASSIUM SERUM 3.9 MEQ/L (3.5-5.1); SODIUM LEVEL 140 MEQ/L (136-145); TOTAL PROTEIN 7.2 GM/DL (6.4-8.2)
--- NOTE | 2021-03-27 21:25 | ECGEPIP ---
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
--- NOTE | 2021-03-27 21:46 | DS.PDOC ---
Discharge Summary General Date of Admission Mar 26, 2021 at 21:19 Date of Discharge 03/27/21 Discharge Summary ADMISSION DIAGNOSES: Polysubstance overdose Suicide attempt GERD Depression/anxiety DISCHARGE DIAGNOSES: Polysubstance overdose Suicide attempt GERD Depression/anxiety HOSPITAL COURSE: 30 y/o female with a pmh of gerd, pcos, metabolic syndrome who presents to the ED after taking several of her psychiatric medications today in an effort to harm herself. Patient tells me that her mother holds her medications for her and will only give her one weeks worth of pills at a time. So patient tells me that today as "part of her depression" she took 7 doses of her celexa, hydroxyzine and prazosin. Patient tells me that she has been depressed and has had an increase in life stressors that drove her to this. Admitted for intentional polysubstance overdose, suicide attempt. During her hospitalization poison control was involved. Labs remained unremarkable, ECG was repeated several times and QTC remained within normal limits. Psychiatry assessed on 03/27/2021 and decision was made to transfer to inpatient mental health for further treatment. At discharge the patient denies chest pain, shortness of breath, fevers, chills, nausea, vomiting. PROCEDURES: None DISCHARGE MEDICATIONS: Please see below. PHYSICAL EXAMINATION: VS: Please see below CONSTITUTIONAL: No acute distress, resting comfortably, AAO x 3 EYES: PERRLA, EOM intact HENT, MOUTH: Normocephalic, atraumatic, moist mucous membranes, NECK: SUPPLE, no JVD, no lymphadenopathy, no carotid bruit CV: Regular rate and rhythm, S1S2 normal, no murmurs/rubs/gallops RESPIRATORY: Clear to auscultation bilaterally, no rales/rhonchi/wheezes GI: obese abd, BS positive in 4 quadrants, soft, nontender, nondistended, no rebound or guarding, no organomegaly : Deferred MUSCULOSKELETAL: Normal ROM. No cyanosis, clubbing, swelling, joint deformity, extremity edema INTEGUMENTARY: Intact, no rashes, no lesions, no erythema NEUROLOGIC: Cranial Nerves II-XII are intact, no focal deficits PSYCHIATRIC: Mood and affect are normal DISCHARGE INSTRUCTIONS: 1. Follow up with [facility] attending after arrival ITEMS TO FOLLOWUP ON ON OUTPATIENT: None DISCHARGE DISPOSITION: Stable at discharge. Will f/u in [facility] in the AM. TIME SPENT ON DISCHARGE: 35 minutes. Vital Signs/I&Os Vital Signs Date Time Temp Pulse Resp B/P (MAP) Pulse Ox O2 Delivery O2 Flow Rate FiO2 03/27/21 14:00 97.9 83 19 127/69 (88) 97 Room Air I&O- Last 24 Hours up to 6 AM 03/27/21 06:00 Intake Total 300 ml Balance 300 ml Laboratory Data Labs 24H Laboratory Tests 2 03/26/21 23:49: Anion Gap 4L, Glomerular Filtration Rate > 60.0, Calcium Level 8.7, Total Bilirubin 0.2, Direct Bilirubin < 0.1, Aspartate Amino Transf (AST/SGOT) 14, Alanine Aminotransferase (ALT/SGPT) 32, Alkaline Phosphatase 67, Total Protein 6.8, Albumin 3.2, Albumin/Globulin Ratio 0.9L 03/27/21 06:18: Anion Gap 7L, Glomerular Filtration Rate > 60.0, Calcium Level 8.5, Total Bilirubin 0.4#, Direct Bilirubin 0.1, Aspartate Amino Transf (AST/SGOT) 14, Alanine Aminotransferase (ALT/SGPT) 33, Alkaline Phosphatase 67, Total Protein 6.8, Albumin 3.2, Albumin/Globulin Ratio 0.9L 03/27/21 13:07: Anion Gap 6L, Glomerular Filtration Rate > 60.0, Calcium Level 9.3, Total Bilirubin 0.3, Direct Bilirubin < 0.1, Aspartate Amino Transf (AST/SGOT) 20, Alanine Aminotransferase (ALT/SGPT) 39, Alkaline Phosphatase 77, Total Protein 7.5, Albumin 3.5, Albumin/Globulin Ratio 0.9L 03/27/21 18:15: Anion Gap 5L, Glomerular Filtration Rate > 60.0, Calcium Level 9.2, Total Bilirubin 0.3, Direct Bilirubin 0.1, Aspartate Amino Transf (AST/SGOT) 16, Alanine Aminotransferase (ALT/SGPT) 38, Alkaline Phosphatase 76, Total Protein 7.2, Albumin 3.4, Albumin/Globulin Ratio 0.9L CBC/BMP Laboratory Tests 03/26/21 23:49 03/27/21 06:18 03/27/21 13:07 03/27/21 18:15 Discharge Medications Scheduled Cholecalciferol (Vitamin D3) (Vitamin D3) 1,000 Unit Tablet, 1,000 UNITS PO QHS, (Reported) Pantoprazole Sodium (Pantoprazole Sodium) 40 Mg Tablet.dr, 40 MG PO DAILY, (Reported) Prazosin Hcl (Prazosin HCl) 2 Mg Capsule, 2 MG PO QHS, (Reported) Allergies Coded Allergies: No Known Allergies (Verified , 01/15/12) Allyson Gar MD Mar 27, 2021 21:45
[2021-03-28] MEDS ORDERED: REME15TA2 PO (09:45)
[2021-03-28] MEDS ORDERED: CITA20TA6 PO (09:45)
[2021-03-28] MEDS ORDERED: ARIP10TA32 PO (09:45)
[2021-03-28] MEDS ORDERED: METF500T13 PO (09:45)
== END 2021-03-27 18:40 ==
LOC: M ED 17:31 → M ED INP 21:19 → ENRESERV 23:37 → M MSPAV 03-27 00:16
PROVIDERS: ADMIT Family Medicine; ATTEND Internal Medicine
DX: T14.91XA Suicide attempt, initial encounter (principal); T50.902A Poisoning by unspecified drugs, medicaments and biological substances, intentional self-harm, initial encounter; K21.9 Gastro-esophageal reflux disease without esophagitis; F41.9 Anxiety disorder, unspecified; F32.9 Major depressive disorder, single episode, unspecified; E28.2 Polycystic ovarian syndrome; E88.81 Metabolic syndrome and other insulin resistance; Z79.899 Other long term (current) drug therapy; Y92.89 Other specified places as the place of occurrence of the external cause

== ENCOUNTER → 2021-03-26 | Outpatient (CLI) | payer OTHER ==
[~2021-03-26] MED LIST changes: +D31000TA2 PO; +HYDR-3363 PO; +VIST25CA PO
--- NOTE | 2021-03-26 10:31 | REP ---
INDICATION: ABD PAIN, DIFFICULTY URINATING-LABS AFTER. COMPARISON: None. TECHNIQUE: Real-time transvesical sonographic evaluation of the urinary bladder with Doppler FINDINGS: The pre void urinary bladder volume calculation is 174 cc and the postvoid urinary bladder volume calculation is 0 cc. Doppler at the UV junction shows uro jet phenomena bilaterally. No gross urinary bladder masses were identified. IMPRESSION: As above <Electronically signed by Hector Ramos > 03/26/21 1026
--- NOTE | 2021-03-26 11:20 | REP ---
INDICATION: ABD PAIN, DIFFICULTY URINATING- LABS AFTER. COMPARISON: CT 02/13/2021. TECHNIQUE: Real-time sonographic evaluation of right upper quadrant performed. FINDINGS: Mobile gallstones are seen in the gallbladder without evidence of gallbladder wall thickening.. There is no intrahepatic or extrahepatic biliary dilatation, common bile duct measures 4 mm in maximum diameter. There is diffuse heterogeneous increased echotexture of liver suggesting some degree of fibrofatty infiltration. No gross liver mass is seen. The pancreas demonstrates homogeneous echotexture with no gross mass. The right kidney demonstrates no hydronephrosis, with a normal size of 11.1 cm in length. No free fluid is seen. IMPRESSION: Multiple mobile gallstones in the gallbladder without evidence of gallbladder wall thickening, free fluid or biliary dilatation. There appears to be some degree of fibrofatty infiltration of the liver. <Electronically signed by Ch[facility] > 03/26/21 1116
== END ==
LOC: M RAD 08:40
PROVIDERS: ATTEND Family Medicine
DX: R10.9 Unspecified abdominal pain (principal)

== ENCOUNTER 2021-03-27 17:59 | Inpatient (IN) | payer OTHER ==
[~2021-03-27] VITALS: Ht 167.6 cm; Wt 144.2 kg
[~2021-03-27 17:59] MED LIST changes: +D31000TA2 PO; +HYDR-3363 PO; +VIST25CA PO
[2021-03-27] MEDS ORDERED: IBUPROFEN 400MG TAB PO PRN (18:10)
[2021-03-27] MEDS ORDERED: MAALOX 30 ML SUSP *UDC PO PRN (18:10)
[2021-03-27] MEDS ORDERED: MOM 30ML SUSPENSION UDC PO PRN (18:10)
[2021-03-27 19:00] VITALS: BP 123/69
[2021-03-27] MEDS: traZODone 50 MG TAB PO PRN (21:27)
[2021-03-28 06:27] VITALS: BP 133/82
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
[2021-03-28] MEDS ORDERED: ARIP10TA32 PO (09:45)
[2021-03-28] MEDS ORDERED: METF500T13 PO (09:45)
[2021-03-28] MEDS ORDERED: REME15TA2 PO (09:45)
[2021-03-28] MEDS ORDERED: CITA20TA6 PO (09:45)
[2021-03-28] MEDS ORDERED: HOME MED LIST COMPLETE! XX SCH (09:50)
[2021-03-28] MEDS: FLUoxetine 20 MG CAP PO SCH (10:35)
--- NOTE | 2021-03-28 11:58 | CR.PDOC ---
General Date of Consultation: Mar 28, 2021 Attending Physician: Allyson Gar MD Consultation MEDICAL H&P HISTORY OF PRESENT ILLNESS: Pt is a 30 y/o female with a PMH of GERD, PCPS, metabolic syndrome who presented initially to the ED 03/26/21 after taking several of her psychiatric medications to try and kill herself. She admits to taking 7 doses of her celexa, hydroxyzine and prazosin. She had increased depression due to life stressors.She denied headache, fevers, chills, uri sx, chest pain, palpitations, sob, abd pain, n/v/d/c, dysuria, pedal edema, syncope, paresthesias on admission. During her hospitalization poison control was involved. Labs remained unremarkable, ECG was repeated several times and QTC remained within normal limits. Psychiatry assessed on 03/27/2021 and decision was made to transfer to inpatient mental health for further treatment. Today on evaluation patient has no acute complaints, denies feelings of incr depression, suicidal ideation. She is to be seen by psychiatry later today. REVIEW OF SYSTEMS: CONSTITUTIONAL: Denies lack of energy, unexplained weight gain or weight loss, loss of appetite, fever, night sweats EYES: Denies eye drainage, eye pain, visual changes, dry/irritated eye EARS, NOSE, MOUTH, THROAT: Denies difficulty hearing, ringing in ears, mouth sores, loose teeth, sore throat, facial numbness or pain NECK: Denies swollen glands CARDIOVASCULAR: Denies irregular heartbeat, racing heart, chest pains, swelling of feet or legs, pain in legs with walking RESPIRATORY: Denies shortness of breath, night sweats, wheezing, sputum production, oxygen at home, coughing up blood, cough lasting > 1 month GASTROINTESTINAL: Denies abdominal pain, constipation, bloody stool, diarrhea, heartburn, nausea, vomiting GENITOURINARY: Denies painful urination, bloody urine, frequent urination, urgency, leaking urine, impotence MUSCULOSKELETAL: Denies joint pain, muscle pain, leg swelling INTEGUMENTARY: Denies rash, itching, new skin lesion, change in existing skin lesion, hair loss or increase, breast changes. NEUROLOGICAL: Denies headaches, dizziness, difficulty walking, numbness or tingling PSYCHIATRIC: Denies recurrent bad thoughts, mood swings, hallucinations PAST MEDICAL HISTORY: GERD PCOS metabolic syndrome depression/anxiety PAST SURGICAL HISTORY: Unspec. left middle finger surgery FAMILY HISTORY: No significant family medical history per patient SOCIAL HISTORY: Denies alcohol, tobacco or illicit drug use. She is and lives with her family locally. He is a full code. ALLERGIES: Please see below. HOME MEDICATIONS: Please see below. PHYSICAL EXAMINATION: VS: Please see below CONSTITUTIONAL: No acute distress, resting comfortably, AAO x 3 EYES: PERRLA, EOM intact HENT, MOUTH: Normocephalic, atraumatic, moist mucous membranes, NECK: SUPPLE, no JVD, no lymphadenopathy, no carotid bruit CV: Regular rate and rhythm, S1S2 normal, no murmurs/rubs/gallops RESPIRATORY: Clear to auscultation bilaterally, no rales/rhonchi/wheezes GI: obese abd, BS positive in 4 quadrants, soft, nontender, nondistended, no rebound or guarding, no organomegaly : Deferred MUSCULOSKELETAL: Normal ROM. No cyanosis, clubbing, swelling, joint deformity, extremity edema INTEGUMENTARY: Intact, no rashes, no lesions, no erythema NEUROLOGIC: Cranial Nerves II-XII are intact, no focal deficits PSYCHIATRIC: Mood and affect are normal LABORATORY DATA: Please see below IMAGING: None ASSESSMENT: 30-year-old female with past medical history of depression, history of suicidal ideation admitted for unspecified depressive disorder, suicidal attempt with polypharmacy. PLAN: Unspecified depressive disorder, suicide attempt with polysubstance overdose -Labs, VS stable -Plan per psychiatry team GERD -C/w home med DISPOSITION: Thank you kindly for this consult. We will sign off at this time. If we are needed again, please do not hesitate to call again. Vital Signs/I&O Vital Signs Date Time Temp Pulse Resp B/P (MAP) Pulse Ox O2 Delivery O2 Flow Rate FiO2 03/28/21 06:27 97.5 86 16 133/82 (99) 97 Room Air Allergies Coded Allergies: No Known Allergies (Verified , 01/15/12) Home Medications Scheduled Aripiprazole (Aripiprazole) 10 Mg Tablet, 10 MG PO DAILY for , (Reported) Cholecalciferol (Vitamin D3) (Vitamin D3) 1,000 Unit Tablet, 1,000 UNITS PO DAILY for SUPPLEMENT, (Reported) Citalopram Hydrobromide (Citalopram HBr) 20 Mg Tablet, 20 MG PO DAILY for , (Reported) Metformin HCl (Metformin HCl) 500 Mg Tablet, 500 MG PO BID for , (Reported) Mirtazapine (Remeron) 15 Mg Tab.rapdis, 15 MG PO QHS for , (Reported) Pantoprazole Sodium (Pantoprazole Sodium) 40 Mg Tablet.dr, 40 MG PO DAILY for , (Reported) Prazosin Hcl (Prazosin HCl) 2 Mg Capsule, 2 MG PO QHS for , (Reported) Allyson Gar MD Mar 28, 2021 11:58
[2021-03-28 18:46] VITALS: BP 129/84
[2021-03-28] MEDS: traZODone 50 MG TAB PO PRN (20:52)
[2021-03-29 06:36] VITALS: BP 137/67
[2021-03-29] MEDS: FLUoxetine 20 MG CAP PO SCH (08:47)
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
[2021-03-29 19:33] VITALS: BP 133/76
[2021-03-29] MEDS: traZODone 50 MG TAB PO PRN (20:27)
[2021-03-30 06:04] VITALS: BP 111/73
[2021-03-30] MEDS: FLUoxetine 20 MG CAP PO SCH (08:56)
[2021-03-30] MEDS ORDERED: FLUO20CA22 PO (09:02)
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
== END 2021-03-30 11:00 | disposition home or self-care (01) | DRG 885 ==
LOC: M PSY 18:35
PROVIDERS: ADMIT Student in an Organized Health Care Education/Training Program; ATTEND Student in an Organized Health Care Education/Training Program
DX: F33.0 Major depressive disorder, recurrent, mild (principal); K21.9 Gastro-esophageal reflux disease without esophagitis; F43.10 Post-traumatic stress disorder, unspecified; F60.3 Borderline personality disorder; F60.7 Dependent personality disorder; Z79.899 Other long term (current) drug therapy; E28.2 Polycystic ovarian syndrome; F41.9 Anxiety disorder, unspecified

== ENCOUNTER 2021-04-08 20:34 | Inpatient (IN) | payer OTHER ==
[~2021-04-08] VITALS: Ht 167.6 cm; Wt 140.9 kg
[~2021-04-08 20:34] MED LIST changes: +FLUO20CA22 PO
[2021-04-08 21:41] LABS: HEMATOCRIT 38.4 % (36.0-47.0); HEMOGLOBIN 12.7 g/dl (12.0-15.5); MEAN CORPUSCULAR HEMOGLOBIN 27.1 pg (27.0-33.0); MEAN CORPUSCULAR HGB CONC 33.1 g/dl (32.0-36.5); MEAN CORPUSCULAR VOLUME 81.9 fl (80.0-96.0); PLATELET COUNT, AUTOMATED 362 10^3/uL (150-450); RED BLOOD COUNT 4.69 10^6/uL (4.00-5.40); WHITE BLOOD COUNT 13.2 10^3/uL (4.0-10.0)
[2021-04-08 22:19] LABS: ACETAMINOPHEN LEVEL < 2.0 UG/ML (10.0-30.0); ALBUMIN 3.6 GM/DL (3.2-5.2); ALT/SGPT 41 U/L (12-78); BILIRUBIN,DIRECT 0.1 MG/DL (0.0-0.2); BILIRUBIN,TOTAL 0.3 MG/DL (0.2-1.0); BLOOD UREA NITROGEN 13 MG/DL (7-18); CALCIUM LEVEL 9.5 MG/DL (8.5-10.1); CARBON DIOXIDE LEVEL 26 MEQ/L (21-32); CHLORIDE LEVEL 106 MEQ/L (98-107); CREATININE FOR GFR 1.01 MG/DL (0.55-1.30); ETHYL ALCOHOL (ETHANOL) < 0.003 % (0.000-0.010); GLOMERULAR FILTRATION RATE > 60.0 (>60); GLUCOSE, FASTING 114 MG/DL (70-100); POTASSIUM SERUM 4.2 MEQ/L (3.5-5.1); SALICYLATE LEVEL < 1.7 MG/DL (5.0-30.0); SODIUM LEVEL 140 MEQ/L (136-145); TOTAL PROTEIN 7.6 GM/DL (6.4-8.2)
[2021-04-08 22:28] LABS: HCG, SERUM QUALITATIVE NEGATIVE (NEGATIVE)
[2021-04-08] MEDS ORDERED: FLUO20CA20 PO (22:34)
[2021-04-08] MEDS ORDERED: HOME MED LIST COMPLETE! XX SCH (22:35)
[2021-04-09 07:09] LABS: AMPHETAMINES LEVEL URINE NEGATIVE (NEGATIVE); BARBITURATES URINE NEGATIVE (NEGATIVE); BENZODIAZEPINES URINE NEGATIVE (NEGATIVE); CANNABINOIDS URINE NEGATIVE (NEGATIVE); COCAINE METABOLITE URINE NEGATIVE (NEGATIVE); METHADONE URINE NEGATIVE (NEGATIVE); OPIATES URINE NEGATIVE (NEGATIVE); PHENCYCLIDINE URINE NEGATIVE (NEGATIVE)
[2021-04-09] MEDS ORDERED: metFORMIN (GLUCOPHAGE) 500MG TAB PO SCH (08:00)
[2021-04-09] MEDS ORDERED: FLUoxetine 20 MG CAP PO SCH (09:00)
[2021-04-09] MEDS ORDERED: PANTOPRAZOLE 40MG TAB (PROTONIX) PO SCH (09:00)
--- NOTE | 2021-04-09 10:08 | ECGEPIP ---
[facility] - ED Test Date: 2021-04-08 Pat Name: LEANDRA BERUMEN Department: Room: - Gender: Female Drawbridge Operator: [facility] : 1990 Requested By: PHILIPPE Guevara Order Number: [id number] Reading MD: Edwin Edouard Measurements Intervals [place] Rate: 76 P: 26 IA: 170 QRS: 67 QRSD: 88 T: 49 QT: 384 QTc: 432 Interpretive Statements Normal sinus rhythm BENIGN EARLY REPOLARIZATION SIMILAR TO 03/27/21 Electronically Signed on 04-09-2021 10:08:11 EST by Edwin Edouard
[2021-04-09 11:56] LABS: RSV AMPLIFICATION NEGATIVE (NEGATIVE)
[2021-04-09] MEDS ORDERED: MOM 30ML SUSPENSION UDC PO PRN (16:25)
[2021-04-09] MEDS ORDERED: MAALOX 30 ML SUSP *UDC PO PRN (16:25)
[2021-04-09] MEDS ORDERED: ACETAMINOPHEN TAB 650MG DOSE (2X325MG) PO PRN (16:25)
[2021-04-09] MEDS: metFORMIN (GLUCOPHAGE) 500MG TAB PO SCH (18:15)
[2021-04-09 18:28] VITALS: BP 121/73
[2021-04-10 06:23] VITALS: BP 128/74
[2021-04-10 07:30] VITALS: BP 152/88
[2021-04-10] MEDS: FLUoxetine 10 MG CAP PO SCH (09:49)
[2021-04-10] MEDS: metFORMIN (GLUCOPHAGE) 500MG TAB PO SCH ×2 (09:49→18:02)
[2021-04-10] MEDS: PANTOPRAZOLE 40MG TAB (PROTONIX) PO SCH (09:49)
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
[2021-04-10 18:47] VITALS: BP 135/68
[2021-04-10] MEDS: ARIPiprazole 2 MG TAB PO SCH (21:26)
[2021-04-10] MEDS: traZODone 50 MG TAB PO PRN (21:26)
[2021-04-11 06:00] VITALS: BP 118/66
[2021-04-11] MEDS: metFORMIN (GLUCOPHAGE) 500MG TAB PO SCH ×2 (08:28→17:54)
[2021-04-11] MEDS: PANTOPRAZOLE 40MG TAB (PROTONIX) PO SCH (08:28)
[2021-04-11] MEDS: FLUoxetine 10 MG CAP PO SCH (08:28)
[2021-04-11 12:14] LABS: CHOLESTEROL RISK RATIO 7.131 (<5)
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
[2021-04-11 17:56] VITALS: BP 132/73
[2021-04-11] MEDS: ARIPiprazole 2 MG TAB PO SCH (21:12)
[2021-04-11] MEDS: traZODone 50 MG TAB PO PRN (21:12)
[2021-04-12 06:54] VITALS: BP 122/69
[2021-04-12] MEDS: metFORMIN (GLUCOPHAGE) 500MG TAB PO SCH ×2 (09:16→17:26)
[2021-04-12] MEDS: FLUoxetine 10 MG CAP PO SCH (09:16)
[2021-04-12] MEDS: PANTOPRAZOLE 40MG TAB (PROTONIX) PO SCH (09:16)
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
[2021-04-12 17:36] VITALS: BP 125/71
[2021-04-12] MEDS: ARIPiprazole 2 MG TAB PO SCH (20:59)
[2021-04-12] MEDS: traZODone 50 MG TAB PO PRN (20:59)
[2021-04-13 06:49] VITALS: BP 113/53
[2021-04-13] MEDS ORDERED: FLUO10CA16 PO (07:36)
[2021-04-13] MEDS ORDERED: ABIL1TAB13 PO (07:36)
[2021-04-13] MEDS: metFORMIN (GLUCOPHAGE) 500MG TAB PO SCH (08:45)
[2021-04-13] MEDS: PANTOPRAZOLE 40MG TAB (PROTONIX) PO SCH (09:14)
[2021-04-13] MEDS: FLUoxetine 10 MG CAP PO SCH (09:14)
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
== END 2021-04-13 10:13 | disposition home or self-care (01) | DRG 885 ==
LOC: M ED 20:34 → M ED INP 04-09 16:24 → M PSY 04-09 18:22
PROVIDERS: ADMIT Student in an Organized Health Care Education/Training Program; ATTEND Student in an Organized Health Care Education/Training Program
DX: F32.1 Major depressive disorder, single episode, moderate (principal); Z68.43 Body mass index [BMI] 50.0-59.9, adult; R45.851 Suicidal ideations; F43.10 Post-traumatic stress disorder, unspecified; F41.9 Anxiety disorder, unspecified; F60.3 Borderline personality disorder; F60.7 Dependent personality disorder; Z79.899 Other long term (current) drug therapy; K21.9 Gastro-esophageal reflux disease without esophagitis; E66.01 Morbid (severe) obesity due to excess calories; E28.2 Polycystic ovarian syndrome; E88.81 Metabolic syndrome and other insulin resistance

== ENCOUNTER → 2021-05-28 | Outpatient (CLI) | payer OTHER ==
[~2021-05-28] MED LIST changes: +ABIL1TAB13 PO; +FLUO-96 PO; +FLUO10CA18 PO
== END ==
LOC: M LABSMTC 12:54
PROVIDERS: ATTEND Anesthesiology
DX: Z20.828 Contact with and (suspected) exposure to other viral communicable diseases (principal); Z11.52 Encounter for screening for COVID-19
CPT/HCPCS: G0463; U0003

== ENCOUNTER → 2021-05-29 | Outpatient (CLI) | payer OTHER ==
[~2021-05-29] MED LIST changes: -FLUO-96 PO; +FLUO10CA16 PO; -FLUO10CA18 PO; +FLUO20CA20 PO; +PROHANCE 279.3MG/ML 15ML VIAL As Ordered ONE; +PROHANCE 279.3MG/ML 5ML VIAL As Ordered ONE
--- NOTE | 2021-05-29 14:18 | REPVR ---
PROCEDURE INFORMATION: Exam: MR Head Without and With Contrast Exam date and time: 05/29/2021 12:06 PM Age: 30 years old Clinical indication: Condition or disease; Convulsions or seizures and headache; Tension; Unspecified; Patient HX: She has had seizures for the past 3 yrs; Additional info: Seizures chronic tension [place] TECHNIQUE: Imaging protocol: MR of the head without and with intravenous contrast. Contrast material: PROHANCE; Contrast volume: 20 ml; Contrast route: INTRAVENOUS (IV); COMPARISON: No relevant prior studies available. FINDINGS: Brain: Examination of the brain demonstrates normal morphology and signal intensity.No acute infarction, masses, midline shift or acute hemorrhage is seen. No acute intracranial abnormality is identified.There is no abnormal diffusion weighted signal intensity to suggest an acute ischemic event.The cortical dias / white matter interfaces are preserved throughout the brain.Intracranial flow voids are well maintained. Cerebral ventricles: The ventricular system is not dilated and is appropriate for the patient's age. Bones/joints: Unremarkable. Paranasal sinuses: Normal as visualized. No acute sinusitis. Mastoid air cells: Normal as visualized. No mastoid effusion. Orbital cavity: Unremarkable. Soft tissues: Unremarkable. IMPRESSION: 1. No acute infarction, masses or hemorrhage is seen. No acute intracranial abnormality is identified. 2. No abnormal contrast enhancement is seen. Electronically signed by: Kyle Purcell On 05/29/2021 14:17:59 PM
== END ==
LOC: M RAD 09:49
PROVIDERS: ATTEND Psychiatry & Neurology Neurology
DX: G40.89 Other seizures (principal); G44.221 Chronic tension-type headache, intractable; R41.3 Other amnesia
CPT/HCPCS: 70553; A9576

== ENCOUNTER 2021-06-14 18:15 | Emergency (ER) | payer OTHER ==
[~2021-06-14] VITALS: Ht 170.2 cm; Wt 145.4 kg
[~2021-06-14 18:15] MED LIST changes: +FLUO-96 PO; -FLUO10CA16 PO; +FLUO10CA18 PO; -FLUO20CA20 PO; -PROHANCE 279.3MG/ML 15ML VIAL As Ordered ONE; -PROHANCE 279.3MG/ML 5ML VIAL As Ordered ONE
[2021-06-14 18:18] VITALS: BP 128/77
[2021-06-14] MEDS ORDERED: HYDR-3713 (18:49)
== END 2021-06-14 21:15 | disposition left against medical advice (07) ==
LOC: M ED 18:15
DX: Z53.21 Procedure and treatment not carried out due to patient leaving prior to being seen by health care provider (principal)

== ENCOUNTER 2021-06-24 09:49 | Emergency (ER) | payer OTHER ==
[~2021-06-24] VITALS: Ht 167.6 cm; Wt 145.2 kg
[~2021-06-24 09:49] MED LIST changes: +HYDR-3713
[2021-06-24] MEDS ORDERED: BACI500O21 TOP (14:59)
[2021-06-24 15:09] VITALS: BP 155/83
== END 2021-06-24 15:22 | disposition home or self-care (01) ==
LOC: M ED 09:49
DX: T81.30XA Disruption of wound, unspecified, initial encounter (principal); G89.18 Other acute postprocedural pain; K21.9 Gastro-esophageal reflux disease without esophagitis; F41.1 Generalized anxiety disorder; F32.A Depression, unspecified; F43.10 Post-traumatic stress disorder, unspecified; F31.9 Bipolar disorder, unspecified; E28.2 Polycystic ovarian syndrome; Z79.84 Long term (current) use of oral hypoglycemic drugs; Z79.899 Other long term (current) drug therapy
CPT/HCPCS: 74177; 80048; 80076; 83690; 84703; 85025; 93041; 96360; 96361; 99284; Q9967

== ENCOUNTER 2021-07-01 13:56 | Emergency (ER) | payer OTHER ==
[~2021-07-01] VITALS: Ht 167.6 cm; Wt 140.9 kg
[~2021-07-01 13:56] MED LIST changes: +BACI500O21 TOP
[2021-07-01] MEDS ORDERED: NOVOINJ SC (14:27)
[2021-07-01 16:26] VITALS: BP 132/70
== END 2021-07-01 16:29 | disposition home or self-care (01) ==
LOC: M ED 13:56 → EDBD 13:56 → M ED 16:29
DX: M79.5 Residual foreign body in soft tissue (principal); E28.2 Polycystic ovarian syndrome; F41.9 Anxiety disorder, unspecified; F32.A Depression, unspecified; F31.9 Bipolar disorder, unspecified; K21.9 Gastro-esophageal reflux disease without esophagitis; F43.10 Post-traumatic stress disorder, unspecified; Z79.4 Long term (current) use of insulin; Z79.899 Other long term (current) drug therapy

== ENCOUNTER 2021-07-12 12:20 | Inpatient (IN) | payer OTHER ==
[~2021-07-12] VITALS: Ht 167.6 cm; Wt 148.7 kg
[~2021-07-12 12:20] MED LIST changes: +NOVOINJ SC
[2021-07-12 13:23] LABS: HEMOGLOBIN 13.4 g/dl (12.0-15.5); MEAN CORPUSCULAR HEMOGLOBIN 26.7 pg (27.0-33.0); MEAN CORPUSCULAR HGB CONC 32.7 g/dl (32.0-36.5); MEAN CORPUSCULAR VOLUME 81.8 fl (80.0-96.0); PLATELET COUNT, AUTOMATED 329 10^3/uL (150-450); RED BLOOD COUNT 5.01 10^6/uL (4.00-5.40); WHITE BLOOD COUNT 9.3 10^3/uL (4.0-10.0)
[2021-07-12 13:57] LABS: AMPHETAMINES LEVEL URINE NEGATIVE (NEGATIVE); BARBITURATES URINE NEGATIVE (NEGATIVE); BENZODIAZEPINES URINE NEGATIVE (NEGATIVE); CANNABINOIDS URINE NEGATIVE (NEGATIVE); COCAINE METABOLITE URINE NEGATIVE (NEGATIVE); METHADONE URINE NEGATIVE (NEGATIVE); OPIATES URINE NEGATIVE (NEGATIVE); PHENCYCLIDINE URINE NEGATIVE (NEGATIVE)
[2021-07-12 13:58] LABS: RSV AMPLIFICATION NEGATIVE (NEGATIVE)
[2021-07-12 14:50] LABS: HCG, SERUM QUALITATIVE NEGATIVE (NEGATIVE)
[2021-07-12 15:20] LABS: ACETAMINOPHEN LEVEL < 2.0 UG/ML (10.0-30.0); ALBUMIN 3.3 GM/DL (3.2-5.2); ALT/SGPT 63 U/L (12-78); BILIRUBIN,DIRECT 0.2 MG/DL (0.0-0.2); BILIRUBIN,TOTAL 0.5 MG/DL (0.2-1.0); BLOOD UREA NITROGEN 9 MG/DL (7-18); CALCIUM LEVEL 8.8 MG/DL (8.5-10.1); CARBON DIOXIDE LEVEL 22 MEQ/L (21-32); CHLORIDE LEVEL 107 MEQ/L (98-107); CREATININE FOR GFR 0.73 MG/DL (0.55-1.30); ETHYL ALCOHOL (ETHANOL) < 0.003 % (0.000-0.010); GLOMERULAR FILTRATION RATE > 60.0 (>60); GLUCOSE, FASTING 160 MG/DL (70-100); SALICYLATE LEVEL < 1.7 MG/DL (5.0-30.0); SODIUM LEVEL 138 MEQ/L (136-145); THYROID STIMULATING HORMONE 0.593 uIU/ML (0.358-3.740); TOTAL PROTEIN 6.9 GM/DL (6.4-8.2)
[2021-07-12] MEDS ORDERED: FLUO20CA22 PO (15:35)
[2021-07-12] MEDS ORDERED: ACETAMINOPHEN TAB 650MG DOSE (2X325MG) PO PRN (16:40)
[2021-07-12] MEDS ORDERED: OLANZapine ORAL DISINTEGRATING TAB 5MG PO PRN (16:40)
[2021-07-12] MEDS ORDERED: MOM 30ML SUSPENSION UDC PO PRN (16:40)
[2021-07-12] MEDS ORDERED: MAALOX 30 ML SUSP *UDC PO PRN (16:40)
[2021-07-12 17:01] VITALS: BP 131/65
[2021-07-12] MEDS ORDERED: FLUO10CA18 PO (17:33)
[2021-07-12] MEDS ORDERED: HOME MED LIST COMPLETE! XX SCH (17:35)
[2021-07-12] MEDS: traZODone 50 MG TAB PO PRN (21:21)
[2021-07-13] MEDS ORDERED: FLUoxetine 20 MG CAP PO SCH (09:00)
[2021-07-13] MEDS: PANTOPRAZOLE 40MG TAB (PROTONIX) PO SCH (11:30)
[2021-07-13 16:11] VITALS: BP 131/71
[2021-07-13] MEDS: ARIPiprazole 2 MG TAB PO SCH (21:11)
[2021-07-13] MEDS: traZODone 50 MG TAB PO PRN (21:55)
[2021-07-14 06:27] VITALS: BP 126/57
[2021-07-14] MEDS: FLUoxetine 10 MG CAP PO SCH (09:18)
[2021-07-14] MEDS: PANTOPRAZOLE 40MG TAB (PROTONIX) PO SCH (09:18)
[2021-07-14 16:24] VITALS: BP 126/72
[2021-07-14] MEDS: ARIPiprazole 2 MG TAB PO SCH (23:48)
[2021-07-14] MEDS: traZODone 50 MG TAB PO PRN (23:48)
[2021-07-15 06:43] VITALS: BP 131/69
[2021-07-15] MEDS: PANTOPRAZOLE 40MG TAB (PROTONIX) PO SCH (08:09)
[2021-07-15] MEDS: FLUoxetine 10 MG CAP PO SCH (08:09)
[2021-07-15 16:21] VITALS: BP 136/88
[2021-07-15] MEDS: ARIPiprazole 2 MG TAB PO SCH (20:52)
[2021-07-16 06:36] VITALS: BP 114/71
[2021-07-16] MEDS ORDERED: FLUO20CA22 PO (09:19)
[2021-07-16] MEDS ORDERED: ABIL1TAB13 PO (09:19)
[2021-07-16] MEDS ORDERED: PANT40TA29 PO (09:19)
[2021-07-16] MEDS ORDERED: FLUO10CA18 PO (09:19)
[2021-07-16] MEDS: PANTOPRAZOLE 40MG TAB (PROTONIX) PO SCH (09:28)
[2021-07-16] MEDS: FLUoxetine 10 MG CAP PO SCH (09:28)
== END 2021-07-16 12:29 | disposition home or self-care (01) | DRG 885 ==
LOC: M ED 12:20 → M ED INP 16:38 → M PSY 17:36
PROVIDERS: ADMIT Psychiatry & Neurology Psychiatry; ATTEND Psychiatry & Neurology Psychiatry
DX: F33.9 Major depressive disorder, recurrent, unspecified (principal); R45.851 Suicidal ideations; F43.10 Post-traumatic stress disorder, unspecified; F60.3 Borderline personality disorder; Z79.899 Other long term (current) drug therapy; K21.9 Gastro-esophageal reflux disease without esophagitis; E66.9 Obesity, unspecified; E28.2 Polycystic ovarian syndrome

== ENCOUNTER → 2021-07-23 | Outpatient (CLI) | payer OTHER ==
[~2021-07-23] MED LIST changes: +CETI-24 PO; -D31000TA2 PO; +E-Z-GAS II EFFERVESCENT PACKET (SODIUM BICARB./CITRIC ACID/SIMETHICONE) As Ordered ONE; +E-Z-HD 98% w/w 340GM SUSP BTL As Ordered ONE; +E-Z-PAQUE 96% w/w SUSP 176GM BTL As Ordered ONE; +VITA100093 PO
== END ==
LOC: M RAD 08:09
PROVIDERS: ATTEND Physician Assistant Medical
DX: R13.10 Dysphagia, unspecified (principal); K21.9 Gastro-esophageal reflux disease without esophagitis

== ENCOUNTER 2021-08-15 15:47 | Inpatient (IN) | payer OTHER ==
[~2021-08-15] VITALS: Ht 167.6 cm; Wt 144.1 kg
[~2021-08-15 15:47] MED LIST changes: -CETI-24 PO; -E-Z-GAS II EFFERVESCENT PACKET (SODIUM BICARB./CITRIC ACID/SIMETHICONE) As Ordered ONE; -E-Z-HD 98% w/w 340GM SUSP BTL As Ordered ONE; -E-Z-PAQUE 96% w/w SUSP 176GM BTL As Ordered ONE
[2021-08-15 19:14] LABS: HEMATOCRIT 41.1 % (36.0-47.0); HEMOGLOBIN 13.3 g/dl (12.0-15.5); MEAN CORPUSCULAR HEMOGLOBIN 26.9 pg (27.0-33.0); MEAN CORPUSCULAR HGB CONC 32.4 g/dl (32.0-36.5); MEAN CORPUSCULAR VOLUME 83.2 fl (80.0-96.0); PLATELET COUNT, AUTOMATED 354 10^3/uL (150-450); RED BLOOD COUNT 4.94 10^6/uL (4.00-5.40)
[2021-08-15 19:43] LABS: HCG, SERUM QUALITATIVE NEGATIVE (NEGATIVE)
[2021-08-15 19:48] LABS: ACETAMINOPHEN LEVEL < 2.0 UG/ML (10.0-30.0); ALBUMIN 3.7 GM/DL (3.2-5.2); ALT/SGPT 83 U/L (12-78); BILIRUBIN,DIRECT < 0.1 MG/DL (0.0-0.2); BILIRUBIN,TOTAL 0.3 MG/DL (0.2-1.0); BLOOD UREA NITROGEN 7 MG/DL (7-18); CALCIUM LEVEL 9.1 MG/DL (8.5-10.1); CARBON DIOXIDE LEVEL 27 MEQ/L (21-32); CHLORIDE LEVEL 109 MEQ/L (98-107); CREATININE FOR GFR 0.73 MG/DL (0.55-1.30); ETHYL ALCOHOL (ETHANOL) < 0.003 % (0.000-0.010); GLOMERULAR FILTRATION RATE > 60.0 (>60); GLUCOSE, FASTING 107 MG/DL (70-100); POTASSIUM SERUM 4.3 MEQ/L (3.5-5.1); SALICYLATE LEVEL < 1.7 MG/DL (5.0-30.0); SODIUM LEVEL 141 MEQ/L (136-145); TOTAL PROTEIN 7.5 GM/DL (6.4-8.2)
[2021-08-15 19:52] LABS: AMPHETAMINES LEVEL URINE NEGATIVE (NEGATIVE); BARBITURATES URINE NEGATIVE (NEGATIVE); BENZODIAZEPINES URINE NEGATIVE (NEGATIVE); CANNABINOIDS URINE NEGATIVE (NEGATIVE); COCAINE METABOLITE URINE NEGATIVE (NEGATIVE); METHADONE URINE NEGATIVE (NEGATIVE); OPIATES URINE NEGATIVE (NEGATIVE); PHENCYCLIDINE URINE NEGATIVE (NEGATIVE)
[2021-08-15 19:58] LABS: RSV AMPLIFICATION NEGATIVE (NEGATIVE)
[2021-08-15] MEDS: ARIPiprazole 2 MG TAB PO SCH (21:00)
[2021-08-15] MEDS ORDERED: traZODone 50 MG TAB PO PRN (21:35)
[2021-08-15] MEDS ORDERED: MOM 30ML SUSPENSION UDC PO PRN (21:35)
[2021-08-15] MEDS ORDERED: MAALOX 30 ML SUSP *UDC PO PRN (21:35)
[2021-08-15] MEDS ORDERED: ACETAMINOPHEN TAB 650MG DOSE (2X325MG) PO PRN (21:35)
[2021-08-15] MEDS ORDERED: VITA100093 PO (22:31)
[2021-08-15] MEDS ORDERED: CETI-24 PO (22:31)
[2021-08-15] MEDS ORDERED: FLUO20CA22 PO (22:31)
[2021-08-15] MEDS ORDERED: PANT40TA29 PO (22:31)
[2021-08-15] MEDS ORDERED: ABIL1TAB13 PO (22:31)
[2021-08-15] MEDS ORDERED: FLUO10CA18 PO (22:31)
[2021-08-15] MEDS ORDERED: HOME MED LIST COMPLETE! XX SCH (22:35)
[2021-08-15 22:36] VITALS: BP 131/83
[2021-08-16] MEDS ORDERED: CETIRIZINE (ZyrTEC) 10 MG TAB PO PRN (05:45)
[2021-08-16] MEDS ORDERED: FLUoxetine 20 MG CAP PO SCH (09:00)
[2021-08-16] MEDS: PANTOPRAZOLE 40MG TAB (PROTONIX) PO SCH (09:52)
[2021-08-16] MEDS: VITAMIN D 1,000 INTERNATIONAL UNITS TABLET PO SCH (09:52)
[2021-08-16] MEDS: FLUoxetine 10 MG CAP PO SCH (09:52)
[2021-08-16 19:03] VITALS: BP 146/76
[2021-08-16] MEDS: ARIPiprazole 2 MG TAB PO SCH (20:42)
[2021-08-17 06:22] VITALS: BP 138/77
[2021-08-17] MEDS: FLUoxetine 10 MG CAP PO SCH (09:14)
[2021-08-17] MEDS: VITAMIN D 1,000 INTERNATIONAL UNITS TABLET PO SCH (09:14)
[2021-08-17] MEDS: PANTOPRAZOLE 40MG TAB (PROTONIX) PO SCH (09:14)
[2021-08-17] MEDS ORDERED: ABIL1TAB13 PO (10:47)
[2021-08-17] MEDS ORDERED: FLUO20CA22 PO (10:47)
[2021-08-17] MEDS ORDERED: FLUO10CA18 PO (10:47)
== END 2021-08-17 13:28 | disposition home or self-care (01) | DRG 885 ==
LOC: M ED 15:47 → M ED INP 21:34 → M PSY 22:28
PROVIDERS: ADMIT Psychiatry & Neurology Psychiatry; ATTEND Student in an Organized Health Care Education/Training Program
DX: F33.1 Major depressive disorder, recurrent, moderate (principal); F43.10 Post-traumatic stress disorder, unspecified; Z91.52 Personal history of nonsuicidal self-harm; Z91.51 Personal history of suicidal behavior; Z63.0 Problems in relationship with spouse or partner; Z63.8 Other specified problems related to primary support group; Z91.410 Personal history of adult physical and sexual abuse; Z20.822 Contact with and (suspected) exposure to COVID-19; Z79.899 Other long term (current) drug therapy

== ENCOUNTER 2021-09-25 12:05 | Emergency (ER) | payer OTHER, MEDICAID ==
[~2021-09-25] VITALS: Ht 167.6 cm; Wt 147.7 kg
[~2021-09-25 12:05] MED LIST changes: +CETI-24 PO
[2021-09-25] MEDS ORDERED: ARIP1TAB6 (12:15)
[2021-09-25] MEDS ORDERED: PROZ40CA PO (12:15)
[2021-09-25] MEDS ORDERED: PRAZ1CAP (12:15)
[2021-09-25 13:41] LABS: HEMATOCRIT 39.2 % (36.0-47.0); HEMOGLOBIN 12.8 g/dl (12.0-15.5); MEAN CORPUSCULAR HEMOGLOBIN 26.5 pg (27.0-33.0); MEAN CORPUSCULAR HGB CONC 32.7 g/dl (32.0-36.5); MEAN CORPUSCULAR VOLUME 81.2 fl (80.0-96.0); PLATELET COUNT, AUTOMATED 329 10^3/uL (150-450); RED BLOOD COUNT 4.83 10^6/uL (4.00-5.40); WHITE BLOOD COUNT 10.8 10^3/uL (4.0-10.0)
[2021-09-25 14:04] LABS: HCG, SERUM QUALITATIVE NEGATIVE (NEGATIVE)
[2021-09-25 14:13] LABS: AMPHETAMINES LEVEL URINE NEGATIVE (NEGATIVE); BARBITURATES URINE NEGATIVE (NEGATIVE); BENZODIAZEPINES URINE NEGATIVE (NEGATIVE); CANNABINOIDS URINE NEGATIVE (NEGATIVE); COCAINE METABOLITE URINE NEGATIVE (NEGATIVE); METHADONE URINE NEGATIVE (NEGATIVE); OPIATES URINE NEGATIVE (NEGATIVE); PHENCYCLIDINE URINE NEGATIVE (NEGATIVE)
[2021-09-25 14:18] LABS: ACETAMINOPHEN LEVEL < 2.0 UG/ML (10.0-30.0); ALBUMIN 3.5 GM/DL (3.2-5.2); ALT/SGPT 103 U/L (12-78); BILIRUBIN,DIRECT 0.2 MG/DL (0.0-0.2); BILIRUBIN,TOTAL 0.6 MG/DL (0.2-1.0); BLOOD UREA NITROGEN 8 MG/DL (7-18); CARBON DIOXIDE LEVEL 27 MEQ/L (21-32); CHLORIDE LEVEL 107 MEQ/L (98-107); CREATININE FOR GFR 0.77 MG/DL (0.55-1.30); ETHYL ALCOHOL (ETHANOL) < 0.003 % (0.000-0.010); GLOMERULAR FILTRATION RATE > 60.0 (>60); GLUCOSE, FASTING 126 MG/DL (70-100); SALICYLATE LEVEL < 1.7 MG/DL (5.0-30.0); SODIUM LEVEL 138 MEQ/L (136-145); TOTAL PROTEIN 7.4 GM/DL (6.4-8.2)
[2021-09-25 14:38] LABS: RSV AMPLIFICATION NEGATIVE (NEGATIVE)
[2021-09-26 02:19] VITALS: BP 115/76
== END 2021-09-26 02:23 ==
LOC: M ED 12:05
DX: F32.A Depression, unspecified (principal); F60.3 Borderline personality disorder; R45.851 Suicidal ideations; E28.2 Polycystic ovarian syndrome; F43.10 Post-traumatic stress disorder, unspecified; K21.9 Gastro-esophageal reflux disease without esophagitis; Z79.899 Other long term (current) drug therapy

== ENCOUNTER → 2021-10-18 | Outpatient (CLI) | payer OTHER, MEDICAID ==
[~2021-10-18] MED LIST changes: +ARIP1TAB6; +PRAZ1CAP; +PROZ40CA PO
== END ==
LOC: M SOG 10:57
PROVIDERS: ATTEND Orthopaedic Surgery Adult Reconstructive Orthopaedic Surgery
DX: M25.562 Pain in left knee (principal)

== ENCOUNTER → 2021-11-20 | Outpatient (REF) | payer OTHER, MEDICAID | LOC: M SFHCLERA 11:08 | PROVIDERS: ATTEND Family Medicine | DX: R31.9 Hematuria, unspecified (principal) ==

== ENCOUNTER 2021-12-12 15:02 | Inpatient (IN) | payer OTHER, MEDICAID ==
[~2021-12-12] VITALS: Ht 167.6 cm; Wt 150.6 kg
[2021-12-12 16:04] LABS: HEMATOCRIT 41.5 % (36.0-47.0); HEMOGLOBIN 13.6 g/dl (12.0-15.5); MEAN CORPUSCULAR HEMOGLOBIN 26.5 pg (27.0-33.0); MEAN CORPUSCULAR HGB CONC 32.8 g/dl (32.0-36.5); MEAN CORPUSCULAR VOLUME 80.9 fl (80.0-96.0); PLATELET COUNT, AUTOMATED 340 10^3/uL (150-450); RED BLOOD COUNT 5.13 10^6/uL (4.00-5.40); WHITE BLOOD COUNT 11.1 10^3/uL (4.0-10.0)
[2021-12-12 16:29] LABS: HCG, SERUM QUALITATIVE NEGATIVE (NEGATIVE)
[2021-12-12 16:45] LABS: ACETAMINOPHEN LEVEL < 2.0 UG/ML (10.0-30.0); ALBUMIN 3.8 GM/DL (3.2-5.2); ALT/SGPT 148 U/L (12-78); BILIRUBIN,DIRECT 0.2 MG/DL (0.0-0.2); BILIRUBIN,TOTAL 0.7 MG/DL (0.2-1.0); BLOOD UREA NITROGEN 10 MG/DL (7-18); CARBON DIOXIDE LEVEL 23 MEQ/L (21-32); CHLORIDE LEVEL 106 MEQ/L (98-107); CREATININE FOR GFR 0.75 MG/DL (0.55-1.30); ETHYL ALCOHOL (ETHANOL) 0.003 % (0.000-0.010); GLOMERULAR FILTRATION RATE > 60.0 (>60); GLUCOSE, FASTING 156 MG/DL (70-100); POTASSIUM SERUM 3.9 MEQ/L (3.5-5.1); SALICYLATE LEVEL < 1.7 MG/DL (5.0-30.0); SODIUM LEVEL 138 MEQ/L (136-145); TOTAL PROTEIN 7.8 GM/DL (6.4-8.2)
[2021-12-12 17:09] LABS: RSV AMPLIFICATION NEGATIVE (NEGATIVE)
[2021-12-12] MEDS ORDERED: HOME MED LIST COMPLETE! XX SCH ×2 (17:30→22:25)
[2021-12-12 21:21] LABS: AMPHETAMINES LEVEL URINE NEGATIVE (NEGATIVE); BARBITURATES URINE NEGATIVE (NEGATIVE); BENZODIAZEPINES URINE NEGATIVE (NEGATIVE); CANNABINOIDS URINE NEGATIVE (NEGATIVE); COCAINE METABOLITE URINE NEGATIVE (NEGATIVE); METHADONE URINE NEGATIVE (NEGATIVE); OPIATES URINE NEGATIVE (NEGATIVE); PHENCYCLIDINE URINE NEGATIVE (NEGATIVE)
[2021-12-12] MEDS ORDERED: FLUO20CA22 PO (22:24)
[2021-12-12] MEDS ORDERED: ARIP1TAB6 PO (22:24)
[2021-12-12] MEDS ORDERED: PANT40TA29 PO (22:24)
[2021-12-12] MEDS ORDERED: HYDR1CAP25 PO (22:24)
[2021-12-12] MEDS ORDERED: FLUO10CA18 PO (22:24)
[2021-12-12] MEDS ORDERED: PRAZ2CAP PO (22:24)
[2021-12-13] MEDS ORDERED: MOM 30ML SUSPENSION UDC PO PRN (13:05)
[2021-12-13] MEDS ORDERED: traZODone 50 MG TAB PO PRN (13:05)
[2021-12-13] MEDS ORDERED: MAALOX 30 ML SUSP *UDC PO PRN (13:05)
[2021-12-13] MEDS ORDERED: IBUPROFEN 400MG TAB PO PRN (13:05)
[2021-12-13 15:49] VITALS: BP 138/86
[2021-12-13] MEDS: NICOTINE 21MG/24HR 1 EA TRANSDERMAL TD SCH (19:03)
[2021-12-13] MEDS: FLUoxetine 10 MG CAP PO SCH (19:05)
[2021-12-13] MEDS: PANTOPRAZOLE 40MG TAB (PROTONIX) PO SCH (19:05)
[2021-12-13] MEDS: FLUoxetine 20MG CAP PO SCH (19:06)
[2021-12-13] MEDS ORDERED: PRAZOSIN 1 MG CAP PO SCH (21:00)
[2021-12-13] MEDS: PRAZOSIN 1 MG CAP PO SCH (21:08)
[2021-12-14 06:12] VITALS: BP 121/61
[2021-12-14] MEDS: FLUoxetine 20MG CAP PO SCH (08:04)
[2021-12-14] MEDS: NICOTINE 21MG/24HR 1 EA TRANSDERMAL TD SCH (08:04)
[2021-12-14] MEDS: PANTOPRAZOLE 40MG TAB (PROTONIX) PO SCH (08:05)
[2021-12-14] MEDS: FLUoxetine 10 MG CAP PO SCH (08:05)
[2021-12-14] MEDS ORDERED: PANTOPRAZOLE 40MG TAB (PROTONIX) PO SCH (09:00)
[2021-12-14] MEDS ORDERED: FLUoxetine 10 MG CAP PO SCH (09:00)
[2021-12-14 18:52] VITALS: BP 138/87
[2021-12-14] MEDS: PRAZOSIN 1 MG CAP PO SCH (21:57)
[2021-12-15 07:11] VITALS: BP 132/79
[2021-12-15] MEDS: NICOTINE 21MG/24HR 1 EA TRANSDERMAL TD SCH (09:00)
[2021-12-15] MEDS: PANTOPRAZOLE 40MG TAB (PROTONIX) PO SCH (11:01)
[2021-12-15] MEDS: FLUoxetine 20MG CAP PO SCH (11:01)
[2021-12-15] MEDS: FLUoxetine 10 MG CAP PO SCH (11:01)
[2021-12-15 17:59] VITALS: BP 151/83
[2021-12-15] MEDS: PRAZOSIN 1 MG CAP PO SCH (21:53)
[2021-12-16 06:25] VITALS: BP 135/74
[2021-12-16] MEDS: NICOTINE 21MG/24HR 1 EA TRANSDERMAL TD SCH (09:00)
[2021-12-16] MEDS: FLUoxetine 10 MG CAP PO SCH (11:10)
[2021-12-16] MEDS: PANTOPRAZOLE 40MG TAB (PROTONIX) PO SCH (11:10)
[2021-12-16] MEDS: FLUoxetine 20MG CAP PO SCH (11:10)
[2021-12-16 18:00] VITALS: BP 127/84
[2021-12-16] MEDS: PRAZOSIN 1 MG CAP PO SCH (20:39)
[2021-12-17 06:51] VITALS: BP 140/68
[2021-12-17] MEDS: FLUoxetine 20MG CAP PO SCH (09:04)
[2021-12-17] MEDS: FLUoxetine 10 MG CAP PO SCH (09:04)
[2021-12-17] MEDS: PANTOPRAZOLE 40MG TAB (PROTONIX) PO SCH (09:05)
[2021-12-17 18:00] VITALS: BP 151/77
[2021-12-17 20:38] VITALS: BP 151/77
[2021-12-17] MEDS: PRAZOSIN 1 MG CAP PO SCH (20:38)
[2021-12-18 06:31] VITALS: BP 128/73
[2021-12-18] MEDS: PANTOPRAZOLE 40MG TAB (PROTONIX) PO SCH (08:34)
[2021-12-18] MEDS: FLUoxetine 10 MG CAP PO SCH (08:34)
[2021-12-18] MEDS: FLUoxetine 20MG CAP PO SCH (08:34)
== END 2021-12-18 11:15 | disposition home or self-care (01) | DRG 885 ==
LOC: M ED 15:02 → M ED INP 12-13 13:02 → M PSY 12-13 15:44
PROVIDERS: ADMIT Student in an Organized Health Care Education/Training Program; ATTEND Psychiatry & Neurology Psychiatry
DX: F33.1 Major depressive disorder, recurrent, moderate (principal); F43.10 Post-traumatic stress disorder, unspecified; F60.3 Borderline personality disorder; Z79.899 Other long term (current) drug therapy; G43.909 Migraine, unspecified, not intractable, without status migrainosus; E28.2 Polycystic ovarian syndrome

== ENCOUNTER 2022-01-17 13:12 | Inpatient (IN) | payer OTHER, MEDICAID ==
[~2022-01-17] VITALS: Ht 167.6 cm; Wt 146.4 kg
[~2022-01-17 13:12] MED LIST changes: +ARIP1TAB6 PO
[2022-01-17] MEDS ORDERED: METO10TA2 (13:21)
[2022-01-17] MEDS ORDERED: NS 1,000 ML IV ONE (13:25)
[2022-01-17 14:01] LABS: BASO # 0.1 10^3/uL (0.0-0.2); BASO % 0.5 % (0.0-1.0); EOS # 0.1 10^3/uL (0.0-0.5); EOS % 0.7 % (0.0-3.0); HEMATOCRIT 44.3 % (36.0-47.0); HEMOGLOBIN 13.9 g/dl (12.0-15.5); LYMPH # 3.5 10^3/uL (1.5-5.0); MEAN CORPUSCULAR HEMOGLOBIN 25.9 pg (27.0-33.0); MEAN CORPUSCULAR HGB CONC 31.4 g/dl (32.0-36.5); MEAN CORPUSCULAR VOLUME 82.6 fl (80.0-96.0); MONO # 0.7 10^3/uL (0.0-0.8); MONO % 5.7 % (2.0-8.0); NEUTROPHILS # 7.9 10^3/uL (1.5-8.5); NEUTROPHILS % 64.3 % (36.0-66.0); PLATELET COUNT, AUTOMATED 344 10^3/uL (150-450); RED BLOOD COUNT 5.36 10^6/uL (4.00-5.40); WHITE BLOOD COUNT 12.3 10^3/uL (4.0-10.0)
[2022-01-17 14:49] LABS: ACETAMINOPHEN LEVEL < 2.0 UG/ML (10.0-30.0); ALT/SGPT 193 U/L (12-78); BILIRUBIN,DIRECT 0.3 MG/DL (0.0-0.2); BILIRUBIN,TOTAL 0.8 MG/DL (0.2-1.0); BLOOD UREA NITROGEN 8 MG/DL (7-18); CALCIUM LEVEL 10.1 MG/DL (8.5-10.1); CARBON DIOXIDE LEVEL 22 MEQ/L (21-32); CHLORIDE LEVEL 100 MEQ/L (98-107); CREATININE FOR GFR 0.94 MG/DL (0.55-1.30); ETHYL ALCOHOL (ETHANOL) 0.003 % (0.000-0.010); GLOMERULAR FILTRATION RATE > 60.0 (>60); GLUCOSE, FASTING 215 MG/DL (70-100); POTASSIUM SERUM 3.9 MEQ/L (3.5-5.1); SALICYLATE LEVEL < 1.7 MG/DL (5.0-30.0); SODIUM LEVEL 133 MEQ/L (136-145); TOTAL PROTEIN 7.7 GM/DL (6.4-8.2)
[2022-01-17 14:51] LABS: RSV AMPLIFICATION NEGATIVE (NEGATIVE)
[2022-01-17 14:56] LABS: HCG, SERUM QUALITATIVE NEGATIVE (NEGATIVE)
[2022-01-17 17:24] LABS: AMPHETAMINES LEVEL URINE NEGATIVE (NEGATIVE); BARBITURATES URINE NEGATIVE (NEGATIVE); BENZODIAZEPINES URINE NEGATIVE (NEGATIVE); CANNABINOIDS URINE NEGATIVE (NEGATIVE); COCAINE METABOLITE URINE NEGATIVE (NEGATIVE); METHADONE URINE NEGATIVE (NEGATIVE); OPIATES URINE NEGATIVE (NEGATIVE); PHENCYCLIDINE URINE NEGATIVE (NEGATIVE)
[2022-01-17 18:02] LABS: HEPATITIS B SURFACE ANTIGEN NEGATIVE (NEGATIVE)
[2022-01-17 18:29] LABS: HEPATITIS B CORE ANTIBODY IGM NEGATIVE (NEGATIVE)
[2022-01-17 19:30] LABS: ALBUMIN 3.8 GM/DL (3.2-5.2); BILIRUBIN,DIRECT 0.4 MG/DL (0.0-0.2); BILIRUBIN,TOTAL 0.7 MG/DL (0.2-1.0); TOTAL PROTEIN 7.9 GM/DL (6.4-8.2)
[2022-01-18] MEDS ORDERED: HOME MED LIST COMPLETE! XX SCH (04:30)
[2022-01-18] MEDS ORDERED: PANTOPRAZOLE 40MG TAB (PROTONIX) PO SCH (10:10)
[2022-01-18] MEDS ORDERED: FLUoxetine 10 MG CAP PO SCH (10:10)
[2022-01-18] MEDS ORDERED: PRAZOSIN 1 MG CAP PO SCH (21:00)
[2022-01-19] MEDS ORDERED: MAALOX 30 ML SUSP *UDC PO PRN (01:30)
[2022-01-19] MEDS ORDERED: IBUPROFEN 400MG TAB PO PRN (01:30)
[2022-01-19] MEDS ORDERED: MOM 30ML SUSPENSION UDC PO PRN (01:30)
[2022-01-19 02:14] VITALS: BP 129/84
[2022-01-19] MEDS: FLUoxetine 20MG CAP PO SCH (09:03)
[2022-01-19] MEDS: PANTOPRAZOLE 40MG TAB (PROTONIX) PO SCH (09:04)
[2022-01-19 19:10] LABS: ALBUMIN 3.6 GM/DL (3.2-5.2); BILIRUBIN,DIRECT 0.2 MG/DL (0.0-0.2); BILIRUBIN,TOTAL 0.4 MG/DL (0.2-1.0); TOTAL PROTEIN 7.5 GM/DL (6.4-8.2)
[2022-01-19] MEDS: PRAZOSIN 1 MG CAP PO SCH (20:29)
[2022-01-20 06:25] VITALS: BP 135/81
[2022-01-20] MEDS: PANTOPRAZOLE 40MG TAB (PROTONIX) PO SCH (08:26)
[2022-01-20] MEDS: FLUoxetine 20MG CAP PO SCH (08:26)
[2022-01-20 08:49] VITALS: BP 135/81
[2022-01-20 20:03] VITALS: BP 151/88
[2022-01-20] MEDS: diphenhydrAMINE 25MG CAP PO PRN (20:36)
[2022-01-20] MEDS: PRAZOSIN 1 MG CAP PO SCH (20:36)
[2022-01-21 06:33] VITALS: BP 113/66
[2022-01-21] MEDS: PANTOPRAZOLE 40MG TAB (PROTONIX) PO SCH (08:41)
[2022-01-21] MEDS: FLUoxetine 20MG CAP PO SCH (08:41)
[2022-01-21 12:17] LABS: ALBUMIN 3.2 GM/DL (3.2-5.2); BILIRUBIN,DIRECT 0.2 MG/DL (0.0-0.2); BILIRUBIN,TOTAL 0.4 MG/DL (0.2-1.0); TOTAL PROTEIN 6.7 GM/DL (6.4-8.2)
[2022-01-21 12:23] LABS: HEPATITIS B CORE ANTIBODY IGM NEGATIVE (NEGATIVE); HEPATITIS B SURFACE ANTIGEN NEGATIVE (NEGATIVE)
[2022-01-21 17:09] VITALS: BP 136/80
[2022-01-21 20:51] VITALS: BP 124/88
[2022-01-21] MEDS: PRAZOSIN 1 MG CAP PO SCH (20:51)
[2022-01-21] MEDS: diphenhydrAMINE 25MG CAP PO PRN (20:51)
[2022-01-22 06:12] VITALS: BP 146/88
[2022-01-22] MEDS: FLUoxetine 20MG CAP PO SCH (08:57)
[2022-01-22] MEDS: PANTOPRAZOLE 40MG TAB (PROTONIX) PO SCH (08:57)
[2022-01-22] MEDS ORDERED: DIPH25CA32 PO (09:43)
== END 2022-01-22 12:10 | DRG 885 ==
LOC: M ED 13:12 → EDBD 13:12 → M ED INP 01-19 01:30 → M PSY 01-19 02:11
PROVIDERS: ADMIT Psychiatry & Neurology Psychiatry; ATTEND Psychiatry & Neurology Psychiatry
DX: F33.1 Major depressive disorder, recurrent, moderate (principal); R45.851 Suicidal ideations; Z68.43 Body mass index [BMI] 50.0-59.9, adult; F43.10 Post-traumatic stress disorder, unspecified; F60.3 Borderline personality disorder; E66.01 Morbid (severe) obesity due to excess calories; E28.2 Polycystic ovarian syndrome; K21.9 Gastro-esophageal reflux disease without esophagitis; K76.0 Fatty (change of) liver, not elsewhere classified; Z79.899 Other long term (current) drug therapy; R94.5 Abnormal results of liver function studies

== ENCOUNTER → 2022-01-23 | Outpatient (REF) | payer OTHER, MEDICAID ==
[~2022-01-23] MED LIST changes: +DIPH25CA32 PO; +METO10TA2
[2022-01-23 18:56] LABS: APPEARANCE, URINE MANUAL CLEAR (CLEAR); COLOR, URINE MANUAL YELLOW (YELLOW)
[2022-01-23 18:58] LABS: PH,URINE MAN 5.5 UNITS (5.0 - 7.0); PROTEIN, URINE MANUAL NEGATIVE (NEGATIVE); SPECIFIC GRAVITY,URINE MANUAL 1.025 (1.002-1.035)
[2022-01-23 18:59] LABS: BILIRUBIN, URINE MANUAL NEGATIVE (NEGATIVE); BLOOD URINE MANUAL NEGATIVE (NEGATIVE); GLUCOSE, URINE (UA) MANUAL 4+(1000 MG/DL) mg/dL (NEGATIVE); KETONE, URINE MANUAL NEGATIVE (NEGATIVE); LEUKOCYTE ESTERASE, URINE MAN NEGATIVE (NEGATIVE); NITRITE, URINE MANUAL NEGATIVE (NEGATIVE); UROBILINOGEN, URINE MANUAL NORMAL (NORMAL)
== END ==
LOC: M SMT 18:11
PROVIDERS: ATTEND Urology
DX: R31.0 Gross hematuria (principal)

== ENCOUNTER → 2022-02-04 | Outpatient (CLI) | payer OTHER, MEDICAID ==
[~2022-02-04] MED LIST changes: +ISOVUE-370 76% 100ML VIAL As Ordered ONE
== END ==
LOC: M RAD 15:33
PROVIDERS: ATTEND Urology
DX: R31.0 Gross hematuria (principal); K76.0 Fatty (change of) liver, not elsewhere classified
CPT/HCPCS: 74178; Q9967

== ENCOUNTER → 2022-02-12 | Outpatient (REF) | payer OTHER, MEDICAID ==
[~2022-02-12] MED LIST changes: -ISOVUE-370 76% 100ML VIAL As Ordered ONE
[2022-02-12 18:30] LABS: APPEARANCE, URINE MANUAL CLEAR (CLEAR); COLOR, URINE MANUAL LT YELLOW (YELLOW)
[2022-02-12 18:31] LABS: GLUCOSE, URINE (UA) MANUAL 4+(1000 MG/DL) mg/dL (NEGATIVE); KETONE, URINE MANUAL NEGATIVE (NEGATIVE); PROTEIN, URINE MANUAL NEGATIVE (NEGATIVE); UROBILINOGEN, URINE MANUAL NORMAL (NORMAL)
[2022-02-12 18:32] LABS: BILIRUBIN, URINE MANUAL NEGATIVE (NEGATIVE); BLOOD URINE MANUAL POSITIVE (NEGATIVE); LEUKOCYTE ESTERASE, URINE MAN NEGATIVE (NEGATIVE); NITRITE, URINE MANUAL NEGATIVE (NEGATIVE)
[2022-02-12 19:34] LABS: BACTERIA, URINE MOD AMOUNT; SQUAMOUS EPITHELIAL CELL URINE SMALL AMOUNT /hpf (SMALL AMT)
[2022-02-12 19:35] LABS: HYALINE CAST, URINE NONE SEEN /lpf (0-1)
== END ==
LOC: M SMT 16:58
PROVIDERS: ATTEND Urology
DX: R35.0 Frequency of micturition (principal)

== ENCOUNTER → 2022-02-18 | Outpatient (REF) | payer OTHER, MEDICAID | LOC: M SMT 17:39 | PROVIDERS: ATTEND Urology | DX: R31.0 Gross hematuria (principal) ==

== ENCOUNTER → 2022-02-26 | Outpatient (CLI) | payer OTHER, MEDICAID | LOC: M LABSMTC 09:08 | PROVIDERS: ATTEND Anesthesiology | DX: Z01.818 Encounter for other preprocedural examination (principal); Z11.52 Encounter for screening for COVID-19 ==

== ENCOUNTER 2022-03-01 09:24 | Day surgery (SDC) | payer OTHER ==
[~2022-03-01] VITALS: Ht 167.6 cm; Wt 147.4 kg
[~2022-03-01 09:24] MED LIST changes: +NS 1,000 ML IV ONE
[2022-03-01] MEDS ORDERED: propofoL 200 MG/20 ML VIAL As Ordered ONE ×2 (10:29→10:30)
[2022-03-01] MEDS ORDERED: LIDOCAINE 2% 100MG/5ML SDV (FOR ANES.) As Ordered ONE (10:30)
[2022-03-01] MEDS ORDERED: fentaNYL 100 MCG/2 ML INJECTION As Ordered ONE (10:30)
[2022-03-01 11:33] VITALS: BP 137/77
== END 2022-03-01 11:34 | disposition home or self-care (01) ==
LOC: M OPP 09:24
PROVIDERS: ATTEND Internal Medicine Gastroenterology
DX: K29.60 Other gastritis without bleeding (principal); B96.81 Helicobacter pylori [H. pylori] as the cause of diseases classified elsewhere; Z79.899 Other long term (current) drug therapy; E78.00 Pure hypercholesterolemia, unspecified; E28.2 Polycystic ovarian syndrome; F32.9 Major depressive disorder, single episode, unspecified; F41.9 Anxiety disorder, unspecified
CPT/HCPCS: 43239; 88305; J3010

== ENCOUNTER → 2022-04-26 | Outpatient (REF) | payer OTHER, MEDICAID ==
[~2022-04-26] MED LIST changes: -NS 1,000 ML IV ONE
== END ==
LOC: M PLALAB 12:02
PROVIDERS: ATTEND Nurse Practitioner Family
DX: Z11.3 Encounter for screening for infections with a predominantly sexual mode of transmission (principal)

== ENCOUNTER → 2022-07-08 | Outpatient (CLI) | payer OTHER, MEDICAID ==
[~2022-07-08] MED LIST changes: +DIPH-435 PO; -DIPH25CA32 PO
[2022-07-08 13:58] LABS: BASO # 0.1 10^3/uL (0.0-0.2); BASO % 0.6 % (0.0-1.0); EOS # 0.1 10^3/uL (0.0-0.5); EOS % 0.9 % (0.0-3.0); HEMATOCRIT 42.2 % (36.0-47.0); HEMOGLOBIN 13.9 g/dl (12.0-15.5); HEMOGLOBIN A1c 12.9 % (4.0-6.0); LYMPH # 3.1 10^3/uL (1.5-5.0); LYMPH % 30.2 % (24.0-44.0); MEAN CORPUSCULAR HEMOGLOBIN 26.7 pg (27.0-33.0); MEAN CORPUSCULAR HGB CONC 32.9 g/dl (32.0-36.5); MEAN CORPUSCULAR VOLUME 81.2 fl (80.0-96.0); MONO # 0.6 10^3/uL (0.0-0.8); MONO % 5.4 % (2.0-8.0); NEUTROPHILS # 6.4 10^3/uL (1.5-8.5); NEUTROPHILS % 62.3 % (36.0-66.0); PLATELET COUNT, AUTOMATED 316 10^3/uL (150-450); WHITE BLOOD COUNT 10.3 10^3/uL (4.0-10.0)
[2022-07-08 14:23] LABS: FERRITIN 92.3 NG/ML (7.3-270.7)
[2022-07-08 14:24] LABS: THYROID STIMULATING HORMONE 1.201 uIU/ML (0.55-4.78)
[2022-07-08 14:25] LABS: ALBUMIN 3.7 G/DL (3.2-5.2); ALKALINE PHOSPHATASE 98 U/L (46-116); ALT/SGPT 191 U/L (7.0-40); AST/SGOT 107 U/L (<34); BILIRUBIN,TOTAL 0.9 MG/DL (0.3-1.2); BLOOD UREA NITROGEN 12 MG/DL (9-23); CALCIUM LEVEL 9.5 MG/DL (8.5-10.1); CARBON DIOXIDE LEVEL 24 MMOL/L (20-31); CHLORIDE LEVEL 102 MMOL/L (98-107); CHOLESTEROL LEVEL 296 MG/DL (<200); CHOLESTEROL RISK RATIO 6.39 (<5); GLOMERULAR FILTRATION RATE > 60.0 (>60); GLUCOSE, FASTING 324 MG/DL (60-100); HDL CHOLESTEROL 46.3 MG/DL (>40); IRON (FE) 77 UG/DL (50-170); LDL CHOLESTEROL 205.9 MG/DL (<100); NON-HDL-C 250 MG/DL; PERCENT SATURATION 21.9 % (13.2-45.0); POTASSIUM SERUM 4.1 MMOL/L (3.5-5.1); SODIUM LEVEL 135 MMOL/L (136-145); TOTAL 25(OH) VITAMIN D 11.9 NG/ML (20.0-100.0); TOTAL IRON BINDING CAPACITY 351 UG/DL (250-425); TOTAL PROTEIN 7.3 G/DL (5.7-8.2); TRIGLYCERIDES LEVEL 219 MG/DL (<150)
[2022-07-08 14:26] LABS: FOLATE 13.9 NG/ML (>5.4); VITAMIN B12 LEVEL 421 PG/ML (211-911)
[2022-07-08 14:31] LABS: ERYTHROCYTE SEDIMENTATION RATE 55 mm/hr (0-20)
== END ==
LOC: M RAD 11:19
PROVIDERS: ATTEND Family Medicine
DX: R63.4 Abnormal weight loss (principal); R00.2 Palpitations

== ENCOUNTER → 2022-07-19 | Outpatient (CLI) | payer OTHER, MEDICAID | LOC: M RAD 08:51 | PROVIDERS: ATTEND Physician Assistant Medical | DX: R11.2 Nausea with vomiting, unspecified (principal) | CPT/HCPCS: 36415; 78264; 83519; 83525; 83527; 86337; 86341; A9541 ==

== ENCOUNTER → 2022-07-19 | Outpatient (CLI) | payer OTHER, MEDICAID | LOC: M LAB 08:59 | PROVIDERS: ATTEND Family Medicine | DX: E13.65 Other specified diabetes mellitus with hyperglycemia (principal) ==

== ENCOUNTER → 2022-08-28 | Outpatient (REF) | payer OTHER, MEDICAID | LOC: M PLALAB 16:28 | PROVIDERS: ATTEND Nurse Practitioner Family | DX: Z12.4 Encounter for screening for malignant neoplasm of cervix (principal) | CPT/HCPCS: 87624; G0123 ==

== ENCOUNTER → 2022-10-07 | Outpatient (CLI) | payer OTHER, MEDICAID ==
[2022-10-07 11:54] LABS: BLOOD UREA NITROGEN 8 MG/DL (9-23); CALCIUM LEVEL 9.5 MG/DL (8.5-10.1); CARBON DIOXIDE LEVEL 28 MMOL/L (20-31); CHLORIDE LEVEL 105 MMOL/L (98-107); CREATININE FOR GFR 0.64 MG/DL (0.55-1.30); GLOMERULAR FILTRATION RATE > 60.0 (>60); GLUCOSE, FASTING 135 MG/DL (60-100); HEMOGLOBIN A1c 7.9 % (4.0-6.0); POTASSIUM SERUM 4.2 MMOL/L (3.5-5.1); SODIUM LEVEL 140 MMOL/L (136-145)
== END ==
LOC: M LAB 10:17
PROVIDERS: ATTEND Family Medicine
DX: E11.65 Type 2 diabetes mellitus with hyperglycemia (principal)

== ENCOUNTER 2022-11-15 22:18 | Emergency (ER) | payer OTHER, MEDICAID ==
[~2022-11-15] VITALS: Ht 167.6 cm; Wt 131.4 kg
[2022-11-15 22:33] VITALS: TEMP 98.2
[2022-11-15 23:00] LABS: BASO # 0.1 10^3/uL (0.0-0.2); BASO % 0.4 % (0.0-1.0); EOS # 0.1 10^3/uL (0.0-0.5); EOS % 0.7 % (0.0-3.0); HEMATOCRIT 37.6 % (36.0-47.0); HEMOGLOBIN 12.3 g/dl (12.0-15.5); LYMPH # 4.8 10^3/uL (1.5-5.0); MEAN CORPUSCULAR HEMOGLOBIN 26.7 pg (27.0-33.0); MEAN CORPUSCULAR HGB CONC 32.7 g/dl (32.0-36.5); MEAN CORPUSCULAR VOLUME 81.7 fl (80.0-96.0); MONO # 0.7 10^3/uL (0.0-0.8); MONO % 5.2 % (2.0-8.0); NEUTROPHILS # 7.6 10^3/uL (1.5-8.5); NEUTROPHILS % 57.3 % (36.0-66.0); PLATELET COUNT, AUTOMATED 369 10^3/uL (150-450); WHITE BLOOD COUNT 13.3 10^3/uL (4.0-10.0)
[2022-11-15 23:17] LABS: LIPASE 38 U/L (12-53)
[2022-11-15 23:19] LABS: ACETONE/KETONE 0.18 MMOL/L (0.02-0.27); INR 0.91; PROTHROMBIN TIME 12.5 SECONDS (12.5-14.5)
[2022-11-15 23:35] LABS: ALBUMIN 3.9 G/DL (3.2-5.2); ALKALINE PHOSPHATASE 72 U/L (46-116); ALT/SGPT 20 U/L (7.0-40); AST/SGOT < 8 U/L (<34); BILIRUBIN,DIRECT 0.3 MG/DL (<0.4); BILIRUBIN,TOTAL 0.9 MG/DL (0.3-1.2); BLOOD UREA NITROGEN 8 MG/DL (9-23); CARBON DIOXIDE LEVEL 25 MMOL/L (20-31); CHLORIDE LEVEL 105 MMOL/L (98-107); GLOMERULAR FILTRATION RATE > 60.0 (>60); GLUCOSE, FASTING 84 MG/DL (60-100); MAGNESIUM LEVEL 1.8 MG/DL (1.8-2.4); POTASSIUM SERUM 3.7 MMOL/L (3.5-5.1); SODIUM LEVEL 138 MMOL/L (136-145); TOTAL PROTEIN 7.1 G/DL (5.7-8.2)
[2022-11-15 23:52] LABS: CALCIUM LEVEL 9.8 MG/DL (8.5-10.1)
[2022-11-16] MEDS ORDERED: D10W 500 ML IV SCH (03:05)
[2022-11-16] MEDS ORDERED: HYDROCORTISONE 10 MG TAB PO ONE (03:15)
[2022-11-16 03:45] VITALS: BP 108/57
[2022-11-16 03:48] VITALS: O2SAT 99
== END 2022-11-16 04:18 | disposition home or self-care (01) ==
LOC: M ED 22:18 → EDBD 22:18 → M ED 11-16 04:18
DX: E11.649 Type 2 diabetes mellitus with hypoglycemia without coma (principal); K21.9 Gastro-esophageal reflux disease without esophagitis; F32.A Depression, unspecified; Z79.84 Long term (current) use of oral hypoglycemic drugs; Z79.899 Other long term (current) drug therapy

== ENCOUNTER 2023-01-11 11:27 | Emergency (ER) | payer OTHER, MEDICAID ==
[~2023-01-11] VITALS: Ht 167.6 cm; Wt 120.7 kg
[~2023-01-11 11:27] MED LIST changes: +MIRT-84 PO; -REME15TA2 PO
[2023-01-11] MEDS ORDERED: METF-839 PO (11:38)
[2023-01-11] MEDS ORDERED: ROSU40TA4 PO (11:38)
[2023-01-11 13:00] LABS: BASO % 0.3 % (0.0-1.0); EOS % 0.3 % (0.0-3.0); HEMATOCRIT 40.3 % (36.0-47.0); LYMPH % 28.9 % (24.0-44.0); MEAN CORPUSCULAR HEMOGLOBIN 26.6 pg (27.0-33.0); MEAN CORPUSCULAR HGB CONC 32.3 g/dl (32.0-36.5); MEAN CORPUSCULAR VOLUME 82.4 fl (80.0-96.0); MONO # 0.5 10^3/uL (0.0-0.8); MONO % 4.7 % (2.0-8.0); NEUTROPHILS # 6.8 10^3/uL (1.5-8.5); NEUTROPHILS % 65.6 % (36.0-66.0); PLATELET COUNT, AUTOMATED 364 10^3/uL (150-450); RED BLOOD COUNT 4.89 10^6/uL (4.00-5.40); WHITE BLOOD COUNT 10.4 10^3/uL (4.0-10.0)
[2023-01-11 13:20] LABS: LIPASE 33 U/L (12-53)
[2023-01-11 13:23] LABS: ALBUMIN 3.8 G/DL (3.2-5.2); ALKALINE PHOSPHATASE 69 U/L (46-116); ALT/SGPT 23 U/L (7.0-40); AST/SGOT 11 U/L (<34); BILIRUBIN,DIRECT 0.4 MG/DL (<0.4); BILIRUBIN,TOTAL 0.9 MG/DL (0.3-1.2); BLOOD UREA NITROGEN 8 MG/DL (9-23); CALCIUM LEVEL 9.5 MG/DL (8.5-10.1); CARBON DIOXIDE LEVEL 25 MMOL/L (20-31); CHLORIDE LEVEL 107 MMOL/L (98-107); GLOMERULAR FILTRATION RATE > 60.0 (>60); GLUCOSE, FASTING 123 MG/DL (60-100); POTASSIUM SERUM 3.7 MMOL/L (3.5-5.1); SODIUM LEVEL 142 MMOL/L (136-145); TOTAL PROTEIN 7.3 G/DL (5.7-8.2)
[2023-01-11 13:30] LABS: HCG, SERUM QUALITATIVE NEGATIVE (NEGATIVE)
[2023-01-11 15:12] VITALS: BP 116/75; TEMP 98.2; O2SAT 99
== END 2023-01-11 15:19 | disposition home or self-care (01) ==
LOC: M ED 11:27
DX: R19.7 Diarrhea, unspecified (principal); E11.9 Type 2 diabetes mellitus without complications; K21.9 Gastro-esophageal reflux disease without esophagitis; E78.5 Hyperlipidemia, unspecified; Z79.84 Long term (current) use of oral hypoglycemic drugs; Z79.899 Other long term (current) drug therapy

== ENCOUNTER 2023-01-16 01:59 | Emergency (ER) | payer OTHER, MEDICAID ==
[~2023-01-16 01:59] MED LIST changes: +METF-839 PO; +ROSU40TA4 PO
== END 2023-01-16 02:27 | disposition left against medical advice (07) ==
LOC: M ED 01:59 → EDBD 01:59 → M ED 02:27
DX: Z53.21 Procedure and treatment not carried out due to patient leaving prior to being seen by health care provider (principal)

== ENCOUNTER 2023-01-24 03:34 | Emergency (ER) | payer OTHER, MEDICAID ==
[~2023-01-24] VITALS: Ht 167.6 cm; Wt 120.5 kg
[2023-01-24 04:51] LABS: HEMATOCRIT 37.1 % (36.0-47.0); MEAN CORPUSCULAR HEMOGLOBIN 26.6 pg (27.0-33.0); MEAN CORPUSCULAR HGB CONC 32.3 g/dl (32.0-36.5); MEAN CORPUSCULAR VOLUME 82.3 fl (80.0-96.0); PLATELET COUNT, AUTOMATED 311 10^3/uL (150-450); RED BLOOD COUNT 4.51 10^6/uL (4.00-5.40); WHITE BLOOD COUNT 12.6 10^3/uL (4.0-10.0)
[2023-01-24 05:15] LABS: AMPHETAMINES LEVEL URINE NEGATIVE (NEGATIVE); BARBITURATES URINE NEGATIVE (NEGATIVE); CANNABINOIDS URINE NEGATIVE (NEGATIVE); COCAINE METABOLITE URINE NEGATIVE (NEGATIVE); METHADONE URINE NEGATIVE (NEGATIVE); OPIATES URINE NEGATIVE (NEGATIVE); PHENCYCLIDINE URINE NEGATIVE (NEGATIVE)
[2023-01-24 05:16] LABS: BENZODIAZEPINES URINE NEGATIVE (NEGATIVE)
[2023-01-24 05:16] LABS: ETHYL ALCOHOL (ETHANOL) 0.005 % (0.000-0.010)
[2023-01-24 05:18] LABS: ACETAMINOPHEN LEVEL < 2.0 UG/ML (10.0-20.0); ALBUMIN 3.6 G/DL (3.2-5.2); ALKALINE PHOSPHATASE 69 U/L (46-116); ALT/SGPT 16 U/L (7.0-40); AST/SGOT < 8 U/L (<34); BILIRUBIN,DIRECT 0.3 MG/DL (<0.4); BILIRUBIN,TOTAL 0.6 MG/DL (0.3-1.2); BLOOD UREA NITROGEN 12 MG/DL (9-23); CALCIUM LEVEL 9.2 MG/DL (8.5-10.1); CARBON DIOXIDE LEVEL 23 MMOL/L (20-31); CHLORIDE LEVEL 106 MMOL/L (98-107); GLOMERULAR FILTRATION RATE > 60.0 (>60); GLUCOSE, FASTING 128 MG/DL (60-100); POTASSIUM SERUM 3.8 MMOL/L (3.5-5.1); SALICYLATE LEVEL < 3.0 MG/DL (<30); SODIUM LEVEL 140 MMOL/L (136-145); TOTAL PROTEIN 6.7 G/DL (5.7-8.2)
[2023-01-24 05:20] LABS: THYROID STIMULATING HORMONE 1.405 uIU/ML (0.55-4.78)
[2023-01-24 05:48] LABS: HCG, SERUM QUALITATIVE NEGATIVE (NEGATIVE)
[2023-01-24] MEDS ORDERED: METF-838 PO (05:58)
[2023-01-24] MEDS ORDERED: ROSU40TA4 PO (05:58)
[2023-01-24] MEDS ORDERED: REPA140I2 SC (05:58)
[2023-01-24] MEDS ORDERED: HOME MED LIST COMPLETE! XX SCH (06:00)
[2023-01-24] MEDS ORDERED: metFORMIN XR 500MG TAB *GLUCOPHAGE XR PO SCH (08:00)
[2023-01-24] MEDS ORDERED: PANTOPRAZOLE 40MG TAB (PROTONIX) PO SCH (09:00)
[2023-01-24 14:59] VITALS: BP 133/73; TEMP 98; O2SAT 97
[2023-01-24] MEDS ORDERED: ROSUVASTATIN 10 MG TAB (CRESTOR) PO SCH (21:00)
== END 2023-01-24 15:00 | disposition home or self-care (01) ==
LOC: M ED 03:34
DX: F43.0 Acute stress reaction (principal); R45.851 Suicidal ideations; E11.9 Type 2 diabetes mellitus without complications; F90.9 Attention-deficit hyperactivity disorder, unspecified type; G43.909 Migraine, unspecified, not intractable, without status migrainosus; E28.2 Polycystic ovarian syndrome; Z79.4 Long term (current) use of insulin; Z79.899 Other long term (current) drug therapy

== ENCOUNTER 2023-05-08 09:34 | Emergency (ER) | payer OTHER, MEDICAID ==
[~2023-05-08] VITALS: Ht 167.6 cm; Wt 125.5 kg
[~2023-05-08 09:34] MED LIST changes: +METF-838 PO; -MIRT-62 PO; +MIRT-88 PO; +REPA140I2 SC
[2023-05-08] MEDS ORDERED: ISOVUE-370 76% 100ML VIAL As Ordered ONE (12:37)
[2023-05-08 13:23] VITALS: BP 137/80; TEMP 97.8; O2SAT 95
== END 2023-05-08 13:40 | disposition home or self-care (01) ==
LOC: M ED 09:34
DX: R13.10 Dysphagia, unspecified (principal); S61.101A Unspecified open wound of right thumb with damage to nail, initial encounter; F43.20 Adjustment disorder, unspecified; F31.9 Bipolar disorder, unspecified; F90.9 Attention-deficit hyperactivity disorder, unspecified type; K21.9 Gastro-esophageal reflux disease without esophagitis; Z79.4 Long term (current) use of insulin; Z79.02 Long term (current) use of antithrombotics/antiplatelets; Z79.899 Other long term (current) drug therapy; Y92.009 Unspecified place in unspecified non-institutional (private) residence as the place of occurrence of the external cause; Y93.89 Activity, other specified; Y99.9 Unspecified external cause status
CPT/HCPCS: 36415; 70498; 80047; 84702; 99284; Q9967

== ENCOUNTER 2023-05-17 08:35 | Emergency (ER) | payer OTHER, MEDICAID ==
[~2023-05-17] VITALS: Ht 167.6 cm; Wt 124.4 kg
[2023-05-17 10:38] VITALS: BP 160/88; TEMP 97.8; O2SAT 100
== END 2023-05-17 10:51 | disposition home or self-care (01) ==
LOC: M ED 08:35
DX: L30.4 Erythema intertrigo (principal); L85.3 Xerosis cutis; E11.9 Type 2 diabetes mellitus without complications; E78.5 Hyperlipidemia, unspecified; F43.10 Post-traumatic stress disorder, unspecified; F32.A Depression, unspecified; K21.9 Gastro-esophageal reflux disease without esophagitis; E28.2 Polycystic ovarian syndrome; F31.9 Bipolar disorder, unspecified; Z79.4 Long term (current) use of insulin; Z79.899 Other long term (current) drug therapy

== ENCOUNTER 2023-06-01 09:06 | Emergency (ER) | payer OTHER, MEDICAID ==
[~2023-06-01] VITALS: Ht 182.9 cm; Wt 230.0 kg
[2023-06-01 11:28] VITALS: BP 143/84; TEMP 97.3; O2SAT 98
== END 2023-06-01 11:37 | disposition home or self-care (01) ==
LOC: M ED 09:06
DX: S01.552A Open bite of oral cavity, initial encounter (principal); E11.9 Type 2 diabetes mellitus without complications; F10.10 Alcohol abuse, uncomplicated; Z79.84 Long term (current) use of oral hypoglycemic drugs; Y92.9 Unspecified place or not applicable; Y93.9 Activity, unspecified; Y99.9 Unspecified external cause status

== ENCOUNTER → 2023-06-29 | Outpatient (CLI) | payer OTHER, MEDICAID ==
[2023-06-29 13:11] LABS: BASO % 0.2 % (0.0-1.0); EOS # 0.1 10^3/uL (0.0-0.5); EOS % 0.9 % (0.0-3.0); HEMATOCRIT 38.2 % (36.0-47.0); HEMOGLOBIN 12.3 g/dl (12.0-15.5); LYMPH # 2.4 10^3/uL (1.5-5.0); LYMPH % 18.7 % (24.0-44.0); MEAN CORPUSCULAR HEMOGLOBIN 27.1 pg (27.0-33.0); MEAN CORPUSCULAR HGB CONC 32.2 g/dl (32.0-36.5); MEAN CORPUSCULAR VOLUME 84.1 fl (80.0-96.0); MONO # 0.6 10^3/uL (0.0-0.8); MONO % 5.1 % (2.0-8.0); NEUTROPHILS # 9.5 10^3/uL (1.5-8.5); NEUTROPHILS % 74.8 % (36.0-66.0); PLATELET COUNT, AUTOMATED 343 10^3/uL (150-450); RED BLOOD COUNT 4.54 10^6/uL (4.00-5.40); WHITE BLOOD COUNT 12.6 10^3/uL (4.0-10.0)
[2023-06-29 13:40] LABS: ALBUMIN 3.5 G/DL (3.2-5.2); ALKALINE PHOSPHATASE 54 U/L (46-116); ALT/SGPT 24 U/L (7.0-40); AST/SGOT 11 U/L (<34); BILIRUBIN,TOTAL 0.7 MG/DL (0.3-1.2); BLOOD UREA NITROGEN 8 MG/DL (9-23); CALCIUM LEVEL 9.1 MG/DL (8.5-10.1); CARBON DIOXIDE LEVEL 28 MMOL/L (20-31); CHLORIDE LEVEL 106 MMOL/L (98-107); GLOMERULAR FILTRATION RATE > 60.0 (>60); GLUCOSE, FASTING 94 MG/DL (60-100); POTASSIUM SERUM 4.3 MMOL/L (3.5-5.1); SODIUM LEVEL 139 MMOL/L (136-145); TOTAL PROTEIN 7.2 G/DL (5.7-8.2)
[2023-06-29 14:13] LABS: HIV 1&2 SCREEN NEGATIVE (NEGATIVE)
== END ==
LOC: M LAB 12:23
PROVIDERS: ATTEND Internal Medicine Infectious Disease
DX: R76.8 Other specified abnormal immunological findings in serum (principal)

== ENCOUNTER 2023-07-08 16:57 | Emergency (ER) | payer OTHER, MEDICAID ==
[~2023-07-08] VITALS: Ht 165.1 cm; Wt 124.4 kg
[2023-07-08] MEDS ORDERED: EMTR1TAB3 (17:05)
[2023-07-08 19:34] LABS: CHLAMYDIA DNA AMPLIFICATION NEGATIVE (NEGATIVE); GC DNA AMPLIFICATION NEGATIVE (NEGATIVE)
[2023-07-08 21:32] LABS: URINE PREG TEST NEGATIVE (NEGATIVE)
[2023-07-08 22:05] VITALS: BP 134/80; TEMP 97.2; O2SAT 99
== END 2023-07-08 22:07 | disposition home or self-care (01) ==
LOC: M ED 16:57
DX: L70.0 Acne vulgaris (principal); Z20.2 Contact with and (suspected) exposure to infections with a predominantly sexual mode of transmission; E11.9 Type 2 diabetes mellitus without complications; Z79.4 Long term (current) use of insulin; Z79.899 Other long term (current) drug therapy

== ENCOUNTER 2023-07-12 20:26 | Emergency (ER) | payer OTHER, MEDICAID ==
[~2023-07-12] VITALS: Ht 165.1 cm; Wt 124.7 kg
[~2023-07-12 20:26] MED LIST changes: +EMTR1TAB3
[2023-07-12 22:27] VITALS: BP 135/66; TEMP 97.2; O2SAT 100
== END 2023-07-13 00:37 | disposition left against medical advice (07) ==
LOC: M ED 20:26
DX: Z53.21 Procedure and treatment not carried out due to patient leaving prior to being seen by health care provider (principal)

== ENCOUNTER 2023-07-13 18:05 | Emergency (ER) | payer OTHER, MEDICAID ==
[~2023-07-13] VITALS: Ht 165.1 cm; Wt 124.9 kg
[2023-07-13 20:50] LABS: APPEARANCE, URINE CLOUDY (CLEAR); BACTERIA, URINE AUTO NEGATIVE (NEGATIVE); BILIRUBIN, URINE AUTO NEGATIVE (NEGATIVE); BLOOD, URINE BLOOD 3+ (NEGATIVE); COLOR, URINE YELLOW (YELLOW); GLUCOSE, URINE (UA) AUTO NEGATIVE (NEGATIVE); KETONE, URINE AUTO NEGATIVE (NEGATIVE); LEUKOCYTE ESTERASE, URINE AUTO 1+ (NEGATIVE); MUCUS, URINE SMALL (NEGATIVE); NITRITE, URINE AUTO NEGATIVE (NEGATIVE); PROTEIN, URINE AUTO NEGATIVE (NEGATIVE); RBC, URINE AUTO 8 /HPF (0-3); SPECIFIC GRAVITY URINE AUTO 1.024 (1.002-1.035); SQUAMOUS EPITHELIAL CELL UR AU 22 /HPF (0-6); UROBILINOGEN, URINE AUTO 0.2 mg/dL (0.0-2.0); WBC, URINE AUTO 73 /HPF (0-3)
[2023-07-13 21:09] VITALS: BP 130/78; TEMP 98.8; O2SAT 98
[2023-07-13 21:11] LABS: BASO % 0.3 % (0.0-1.0); EOS # 0.2 10^3/uL (0.0-0.5); EOS % 1.3 % (0.0-3.0); HEMOGLOBIN 12.1 g/dl (12.0-15.5); LYMPH # 3.4 10^3/uL (1.5-5.0); LYMPH % 28.7 % (24.0-44.0); MEAN CORPUSCULAR HEMOGLOBIN 27.3 pg (27.0-33.0); MEAN CORPUSCULAR HGB CONC 32.7 g/dl (32.0-36.5); MEAN CORPUSCULAR VOLUME 83.3 fl (80.0-96.0); MONO # 0.6 10^3/uL (0.0-0.8); MONO % 5.2 % (2.0-8.0); NEUTROPHILS # 7.7 10^3/uL (1.5-8.5); NEUTROPHILS % 64.2 % (36.0-66.0); PLATELET COUNT, AUTOMATED 343 10^3/uL (150-450); RED BLOOD COUNT 4.44 10^6/uL (4.00-5.40); WHITE BLOOD COUNT 11.9 10^3/uL (4.0-10.0)
[2023-07-13 21:28] LABS: ALBUMIN 3.5 G/DL (3.2-5.2); ALKALINE PHOSPHATASE 66 U/L (46-116); ALT/SGPT 22 U/L (7.0-40); AST/SGOT 11 U/L (<34); BILIRUBIN,TOTAL 0.3 MG/DL (0.3-1.2); BLOOD UREA NITROGEN 14 MG/DL (9-23); CALCIUM LEVEL 9.1 MG/DL (8.5-10.1); CARBON DIOXIDE LEVEL 25 MMOL/L (20-31); CHLORIDE LEVEL 107 MMOL/L (98-107); CREATININE FOR GFR 0.66 MG/DL (0.55-1.30); GLOMERULAR FILTRATION RATE > 60.0 (>60); GLUCOSE, FASTING 108 MG/DL (60-100); POTASSIUM SERUM 3.9 MMOL/L (3.5-5.1); SODIUM LEVEL 139 MMOL/L (136-145); TOTAL PROTEIN 7.2 G/DL (5.7-8.2)
[2023-07-13 21:35] LABS: HEPATITIS B SURFACE ANTIBODY NEGATIVE (POSITIVE)
[2023-07-13 21:52] LABS: HCG, SERUM QUALITATIVE NEGATIVE (NEGATIVE)
[2023-07-13 22:00] LABS: HIV 1&2 SCREEN NEGATIVE (NEGATIVE)
[2023-07-13 22:09] LABS: HEPATITIS C VIRUS ABY INDEX < 0.02 INDEX (<0.8)
[2023-07-13] MEDS: LIDOCAINE 1% SDV 5ML VIAL DILUENT ONE (23:25)
[2023-07-13] MEDS: DOXYCYCLINE HYCLATE 100MG TABLET PO ONE (23:51)
[2023-07-13] MEDS: metroNIDAZOLE (FLAGYL) 500MG TABLET PO ONE (23:51)
[2023-07-13] MEDS: cefTRIAXone SOD 1GM VIAL IM ONE (23:51)
[2023-07-14 00:42] LABS: Trichomonas vaginalis (AMP) NOT DETECTED (NEGATIVE)
[2023-07-14 01:06] LABS: GC DNA AMPLIFICATION NEGATIVE (NEGATIVE)
== END 2023-07-14 00:03 | disposition home or self-care (01) ==
LOC: M ED 18:05
DX: T76.21XA Adult sexual abuse, suspected, initial encounter (principal); E28.2 Polycystic ovarian syndrome; E11.9 Type 2 diabetes mellitus without complications; F12.10 Cannabis abuse, uncomplicated; B16.9 Acute hepatitis B without delta-agent and without hepatic coma; Z79.899 Other long term (current) drug therapy; Z79.84 Long term (current) use of oral hypoglycemic drugs; Z79.1 Long term (current) use of non-steroidal anti-inflammatories (NSAID)
CPT/HCPCS: 80053; 81001; 84703; 85025; 86706; 86780; 86803; 87210; 87340; 87389; 87661; 87810; 87850; 96372; 99283; J0696

== ENCOUNTER 2023-07-27 14:26 | Inpatient (IN) | payer OTHER, MEDICAID ==
[~2023-07-27] VITALS: Ht 167.6 cm; Wt 125.3 kg
[~2023-07-27 14:26] MED LIST changes: -EMTR1TAB3; +EMTR1TAB3 PO
[2023-07-27 15:26] LABS: HEMATOCRIT 37.5 % (36.0-47.0); HEMOGLOBIN 12.4 g/dl (12.0-15.5); MEAN CORPUSCULAR HEMOGLOBIN 27.4 pg (27.0-33.0); MEAN CORPUSCULAR HGB CONC 33.1 g/dl (32.0-36.5); MEAN CORPUSCULAR VOLUME 82.8 fl (80.0-96.0); PLATELET COUNT, AUTOMATED 369 10^3/uL (150-450); RED BLOOD COUNT 4.53 10^6/uL (4.00-5.40); WHITE BLOOD COUNT 9.4 10^3/uL (4.0-10.0)
[2023-07-27 15:53] LABS: AMPHETAMINES LEVEL URINE NEGATIVE (NEGATIVE); BARBITURATES URINE NEGATIVE (NEGATIVE); BENZODIAZEPINES URINE NEGATIVE (NEGATIVE); CANNABINOIDS URINE NEGATIVE (NEGATIVE); COCAINE METABOLITE URINE NEGATIVE (NEGATIVE); METHADONE URINE NEGATIVE (NEGATIVE); OPIATES URINE NEGATIVE (NEGATIVE); PHENCYCLIDINE URINE NEGATIVE (NEGATIVE)
[2023-07-27 15:55] LABS: ETHYL ALCOHOL (ETHANOL) 0.079 % (0.000-0.010)
[2023-07-27 15:57] LABS: ALBUMIN 3.9 G/DL (3.2-5.2); ALKALINE PHOSPHATASE 64 U/L (46-116); ALT/SGPT 26 U/L (7.0-40); AST/SGOT 12 U/L (<34); BILIRUBIN,DIRECT 0.1 MG/DL (<0.4); BILIRUBIN,TOTAL 0.5 MG/DL (0.3-1.2); BLOOD UREA NITROGEN 8 MG/DL (9-23); CALCIUM LEVEL 8.9 MG/DL (8.5-10.1); CARBON DIOXIDE LEVEL 23 MMOL/L (20-31); CHLORIDE LEVEL 107 MMOL/L (98-107); CREATININE FOR GFR 0.59 MG/DL (0.55-1.30); GLOMERULAR FILTRATION RATE > 60.0 (>60); GLUCOSE, FASTING 111 MG/DL (60-100); POTASSIUM SERUM 4.1 MMOL/L (3.5-5.1); SALICYLATE LEVEL < 3.0 MG/DL (<30); SODIUM LEVEL 137 MMOL/L (136-145); TOTAL PROTEIN 7.2 G/DL (5.7-8.2)
[2023-07-27 16:00] LABS: THYROID STIMULATING HORMONE 0.752 uIU/ML (0.55-4.78)
[2023-07-27 16:01] LABS: HCG, SERUM QUALITATIVE NEGATIVE (NEGATIVE)
[2023-07-27] MEDS ORDERED: diphenhydrAMINE 25MG CAP PO PRN (17:50)
[2023-07-27] MEDS ORDERED: ACETAMINOPHEN TAB 650MG DOSE (2X325MG) PO PRN (17:50)
[2023-07-27] MEDS ORDERED: IBUPROFEN 400MG TAB PO PRN (17:50)
[2023-07-27] MEDS ORDERED: MOM 30ML SUSPENSION UDC PO PRN (17:50)
[2023-07-27] MEDS ORDERED: HOME MED LIST COMPLETE! XX SCH (18:55)
[2023-07-27 22:08] VITALS: BP 132/79; TEMP 96.8; O2SAT 99
[2023-07-28 06:44] VITALS: BP 144/83; TEMP 97; O2SAT 100
[2023-07-28] MEDS: PANTOPRAZOLE 40MG TAB (PROTONIX) PO SCH (08:53)
[2023-07-28] MEDS: metFORMIN XR 500MG TAB *GLUCOPHAGE XR PO SCH (08:53)
[2023-07-28] MEDS: FLUoxetine 20MG CAP PO SCH (08:53)
[2023-07-28] MEDS: EMTRICITABINE/TENOFOVIR 200MG/300MG TABLET PO SCH (09:40)
[2023-07-28] MEDS: INFLUENZA QUADRIVALENT PF VACCINE 0.5ML SYRINGE IM.IMMUN ONE (15:32)
[2023-07-28] MEDS: HYDROCORTISONE 2.5% 20GM OINTMENT TOP SCH (15:35)
[2023-07-28 18:29] VITALS: BP 123/58; TEMP 96.8; O2SAT 100
[2023-07-29 06:21] VITALS: BP 124/66; TEMP 97.7; O2SAT 100
[2023-07-29 14:32] VITALS: BP 119/66; TEMP 96.7; O2SAT 100
[2023-07-29] MEDS: traZODone 50 MG TAB PO PRN (20:57)
[2023-07-30 06:45] VITALS: BP 133/72; TEMP 98.3; O2SAT 99
[2023-07-30 08:32] LABS: CHOLESTEROL RISK RATIO 4.56 (<5); HDL CHOLESTEROL 42.9 MG/DL (>40); LDL CHOLESTEROL 121.3 MG/DL (<100); NON-HDL-C 153.1 MG/DL
[2023-07-30] MEDS: MAALOX 30 ML SUSP *UDC PO PRN (09:21)
[2023-07-30] MEDS: NALTREXONE 50 MG TAB PO SCH (09:21)
[2023-07-30] MEDS: ONDANSETRON 4MG ORAL DISINTEGRATING TAB PO ONE (14:34)
[2023-07-30] MEDS ORDERED: ONDANSETRON 4MG ORAL DISINTEGRATING TAB SL PRN (14:55)
[2023-07-30] MEDS: ONDANSETRON 4MG 2ML VIAL IM ONE (15:22)
[2023-07-30 17:36] VITALS: BP 117/56; TEMP 97.8; O2SAT 100
[2023-07-31 06:22] VITALS: BP 130/79; TEMP 97.3; O2SAT 100
[2023-07-31] MEDS ORDERED: FLUO20CA22 PO (09:19)
[2023-07-31] MEDS ORDERED: TRAZ-252 PO (09:19)
[2023-07-31] MEDS ORDERED: ONDANSETRON 4MG ORAL DISINTEGRATING TAB SL PRN (09:20)
== END 2023-07-31 09:46 | disposition home or self-care (01) | DRG 882 ==
LOC: M ED 14:26 → M ED INP 17:48 → M PSY 21:36
PROVIDERS: ADMIT Student in an Organized Health Care Education/Training Program; ATTEND Student in an Organized Health Care Education/Training Program
DX: F43.10 Post-traumatic stress disorder, unspecified (principal); R45.851 Suicidal ideations; F43.23 Adjustment disorder with mixed anxiety and depressed mood; F10.20 Alcohol dependence, uncomplicated; K21.9 Gastro-esophageal reflux disease without esophagitis; F60.3 Borderline personality disorder; F31.9 Bipolar disorder, unspecified; E11.9 Type 2 diabetes mellitus without complications; E78.5 Hyperlipidemia, unspecified; G43.909 Migraine, unspecified, not intractable, without status migrainosus; R21 Rash and other nonspecific skin eruption; Z91.51 Personal history of suicidal behavior; Z91.410 Personal history of adult physical and sexual abuse; Z90.49 Acquired absence of other specified parts of digestive tract; Z79.84 Long term (current) use of oral hypoglycemic drugs; Z79.899 Other long term (current) drug therapy; Z11.52 Encounter for screening for COVID-19; Z72.51 High risk heterosexual behavior

== ENCOUNTER 2023-08-11 15:14 | Emergency (ER) | payer OTHER, MEDICAID ==
[~2023-08-11] VITALS: Ht 165.1 cm; Wt 126.5 kg
[2023-08-11 15:15] VITALS: BP 114/69; TEMP 97.7; O2SAT 99
== END 2023-08-11 19:26 | disposition left against medical advice (07) ==
LOC: M ED 15:14
DX: Z53.21 Procedure and treatment not carried out due to patient leaving prior to being seen by health care provider (principal)

== ENCOUNTER 2023-11-17 05:18 | Emergency (ER) | payer OTHER, MEDICAID ==
[~2023-11-17 05:18] MED LIST changes: +FLUO-290 PO; +FLUO-365 PO; -FLUO10CA18 PO; -FLUO20CA22 PO; -ROSU40TA4 PO; +ROSU40TA63 PO
[2023-11-17 08:28] LABS: BASO % 0.5 % (0.0-1.0); EOS # 0.1 10^3/uL (0.0-0.5); EOS % 1.4 % (0.0-3.0); HEMATOCRIT 38.3 % (36.0-47.0); HEMOGLOBIN 12.1 g/dl (12.0-15.5); LYMPH # 2.2 10^3/uL (1.5-5.0); LYMPH % 24.8 % (24.0-44.0); MEAN CORPUSCULAR HEMOGLOBIN 26.4 pg (27.0-33.0); MEAN CORPUSCULAR HGB CONC 31.6 g/dl (32.0-36.5); MEAN CORPUSCULAR VOLUME 83.6 fl (80.0-96.0); MONO # 0.6 10^3/uL (0.0-0.8); MONO % 6.3 % (2.0-8.0); NEUTROPHILS # 5.9 10^3/uL (1.5-8.5); NEUTROPHILS % 66.7 % (36.0-66.0); PLATELET COUNT, AUTOMATED 344 10^3/uL (150-450); RED BLOOD COUNT 4.58 10^6/uL (4.00-5.40); WHITE BLOOD COUNT 8.8 10^3/uL (4.0-10.0)
[2023-11-17] MEDS: NS 1,000 ML IV ONE (08:34)
[2023-11-17] MEDS: ONDANSETRON 4MG 2ML VIAL IV ONE (08:34)
[2023-11-17] MEDS: PANTOPRAZOLE 40MG VIAL IV ONE (08:35)
[2023-11-17 08:52] LABS: ETHYL ALCOHOL (ETHANOL) < 0.003 % (0.000-0.010); LIPASE 32 U/L (12-53)
[2023-11-17 08:53] LABS: ALBUMIN 3.5 G/DL (3.2-5.2); ALKALINE PHOSPHATASE 73 U/L (46-116); ALT/SGPT 61 U/L (7.0-40); AST/SGOT 25 U/L (<34); BILIRUBIN,DIRECT < 0.1 MG/DL (<0.4); BILIRUBIN,TOTAL 0.3 MG/DL (0.3-1.2); BLOOD UREA NITROGEN 10 MG/DL (9-23); CALCIUM LEVEL 9.2 MG/DL (8.5-10.1); CARBON DIOXIDE LEVEL 26 MMOL/L (20-31); CHLORIDE LEVEL 105 MMOL/L (98-107); CREATININE FOR GFR 0.55 MG/DL (0.55-1.30); GLOMERULAR FILTRATION RATE > 60.0 (>60); GLUCOSE, FASTING 125 MG/DL (60-100); POTASSIUM SERUM 4.3 MMOL/L (3.5-5.1); SODIUM LEVEL 137 MMOL/L (136-145); TOTAL PROTEIN 7.2 G/DL (5.7-8.2)
[2023-11-17 08:58] VITALS: BP 112/69; TEMP 97.2; O2SAT 100
[2023-11-17] MEDS ORDERED: ONDA-282 PO (09:16)
== END 2023-11-17 09:57 | disposition home or self-care (01) ==
LOC: M ED 05:18
DX: F10.10 Alcohol abuse, uncomplicated (principal); R11.2 Nausea with vomiting, unspecified; E28.2 Polycystic ovarian syndrome; E11.9 Type 2 diabetes mellitus without complications; K21.9 Gastro-esophageal reflux disease without esophagitis; F41.9 Anxiety disorder, unspecified; F31.9 Bipolar disorder, unspecified; F43.10 Post-traumatic stress disorder, unspecified; Z79.83 Long term (current) use of bisphosphonates; Z79.4 Long term (current) use of insulin; Z79.899 Other long term (current) drug therapy
CPT/HCPCS: 80048; 80076; 82077; 83690; 85025; 96361; 96374; 96375; 99284; C9113; J2405

== ENCOUNTER 2023-12-01 03:19 | Emergency (ER) | payer OTHER, MEDICAID ==
[~2023-12-01 03:19] MED LIST changes: +ONDA-282 PO
[2023-12-01 06:55] VITALS: BP 121/57; TEMP 98.9; O2SAT 100
== END 2023-12-01 08:35 | disposition left against medical advice (07) ==
LOC: M ED 03:19 → EDBD 03:19 → M ED 08:35
DX: Z53.21 Procedure and treatment not carried out due to patient leaving prior to being seen by health care provider (principal)

== ENCOUNTER → 2024-01-01 | Outpatient (CLI) | payer OTHER, MEDICAID ==
[2024-01-01 15:54] LABS: BASO % 0.2 % (0.0-1.0); EOS # 0.1 10^3/uL (0.0-0.5); HEMOGLOBIN 11.8 g/dl (12.0-15.5); LYMPH # 2.3 10^3/uL (1.5-5.0); LYMPH % 25.4 % (24.0-44.0); MEAN CORPUSCULAR HEMOGLOBIN 26.3 pg (27.0-33.0); MEAN CORPUSCULAR HGB CONC 31.9 g/dl (32.0-36.5); MEAN CORPUSCULAR VOLUME 82.4 fl (80.0-96.0); MONO # 0.4 10^3/uL (0.0-0.8); MONO % 4.8 % (2.0-8.0); NEUTROPHILS # 6.2 10^3/uL (1.5-8.5); NEUTROPHILS % 68.2 % (36.0-66.0); PLATELET COUNT, AUTOMATED 319 10^3/uL (150-450); RED BLOOD COUNT 4.49 10^6/uL (4.00-5.40); WHITE BLOOD COUNT 9.1 10^3/uL (4.0-10.0)
[2024-01-01 16:05] LABS: HEMOGLOBIN A1c 6.2 % (4.0-6.0)
[2024-01-01 16:25] LABS: CREATININE, URINE 45.6 MG/DL; MALB URINE SIEMENS < 3.0 MG/L; MAU/CREAT RATIO 6.5 MCG/MG (0.0-30.0)
[2024-01-01 16:26] LABS: ALBUMIN 3.6 G/DL (3.2-5.2); ALKALINE PHOSPHATASE 76 U/L (46-116); ALT/SGPT 138 U/L (7.0-40); AST/SGOT 70 U/L (<34); BILIRUBIN,TOTAL 0.6 MG/DL (0.3-1.2); BLOOD UREA NITROGEN 7 MG/DL (9-23); CARBON DIOXIDE LEVEL 25 MMOL/L (20-31); CHLORIDE LEVEL 105 MMOL/L (98-107); CHOLESTEROL LEVEL 239 MG/DL (<200); CHOLESTEROL RISK RATIO 4.84 (<5); CREATININE FOR GFR 0.61 MG/DL (0.55-1.30); GLOMERULAR FILTRATION RATE > 60.0 (>60); GLUCOSE, FASTING 159 MG/DL (60-100); HDL CHOLESTEROL 49.3 MG/DL (>40); LDL CHOLESTEROL 140.3 MG/DL (<100); NON-HDL-C 189.7 MG/DL; POTASSIUM SERUM 3.9 MMOL/L (3.5-5.1); SODIUM LEVEL 137 MMOL/L (136-145); TOTAL PROTEIN 7.3 G/DL (5.7-8.2); TRIGLYCERIDES LEVEL 247 MG/DL (<150)
== END ==
LOC: M LAB 14:51
PROVIDERS: ATTEND Family Medicine
DX: E11.65 Type 2 diabetes mellitus with hyperglycemia (principal); K76.0 Fatty (change of) liver, not elsewhere classified; E66.01 Morbid (severe) obesity due to excess calories; Z68.42 Body mass index [BMI] 45.0-49.9, adult

== ENCOUNTER 2024-06-28 18:40 | Emergency (ER) | payer OTHER, MEDICAID ==
[~2024-06-28] VITALS: Ht 165.1 cm; Wt 137.4 kg
[~2024-06-28 18:40] MED LIST changes: -ARIP10TA32 PO; +ARIP10TA63 PO; -ROSU40TA63 PO; +ROSU40TA81 PO
[2024-06-28 22:17] LABS: HCG, SERUM QUALITATIVE POSITIVE (NEGATIVE)
[2024-06-29 00:39] LABS: HCG, SERUM QUANTITATIVE 54.2 MIU/ML (<4.2)
[2024-06-29 03:39] VITALS: BP 119/69; TEMP 98.2; O2SAT 100
== END 2024-06-29 04:14 | disposition home or self-care (01) ==
LOC: M ED 18:40
DX: O20.0 Threatened abortion (principal); F10.10 Alcohol abuse, uncomplicated; K21.9 Gastro-esophageal reflux disease without esophagitis; E78.5 Hyperlipidemia, unspecified; G43.909 Migraine, unspecified, not intractable, without status migrainosus; F32.A Depression, unspecified; F43.10 Post-traumatic stress disorder, unspecified; F90.9 Attention-deficit hyperactivity disorder, unspecified type; F31.9 Bipolar disorder, unspecified; E28.2 Polycystic ovarian syndrome; Z3A.00 Weeks of gestation of pregnancy not specified; Z79.4 Long term (current) use of insulin; Z79.83 Long term (current) use of bisphosphonates; Z79.899 Other long term (current) drug therapy

== ENCOUNTER → 2024-07-01 | Outpatient (REF) | payer OTHER, MEDICAID | LOC: M LABDRAWC 17:26 | PROVIDERS: ATTEND Emergency Medicine | DX: O20.0 Threatened abortion (principal) ==

== ENCOUNTER 2024-08-15 20:10 | Emergency (ER) | payer OTHER, MEDICAID ==
[~2024-08-15] VITALS: Ht 165.1 cm; Wt 133.9 kg
[2024-08-15] MEDS ORDERED: PNV1TABL16 PO (20:27)
[2024-08-15] MEDS ORDERED: EMTR1TAB16 PO (20:28)
[2024-08-15] MEDS ORDERED: VALA1TAB5 PO (22:23)
[2024-08-15 22:36] VITALS: BP 128/71; TEMP 98; O2SAT 97
== END 2024-08-15 22:39 | disposition home or self-care (01) ==
LOC: M ED 20:10
DX: O26.41 Herpes gestationis, first trimester (principal); K21.9 Gastro-esophageal reflux disease without esophagitis; E78.5 Hyperlipidemia, unspecified; F90.9 Attention-deficit hyperactivity disorder, unspecified type; F31.9 Bipolar disorder, unspecified; Z79.4 Long term (current) use of insulin; Z79.899 Other long term (current) drug therapy; Z3A.11 11 weeks gestation of pregnancy

== ENCOUNTER 2024-08-31 13:48 | Emergency (ER) | payer OTHER, MEDICAID ==
[~2024-08-31] VITALS: Ht 165.1 cm; Wt 131.4 kg
[~2024-08-31 13:48] MED LIST changes: +EMTR1TAB16 PO; +PNV1TABL16 PO; +VALA1TAB5 PO
[2024-08-31] MEDS ORDERED: VITAD400CA FT (13:59)
[2024-08-31 16:13] LABS: BASO % 0.3 % (0.0-1.0); EOS # 0.1 10^3/uL (0.0-0.5); EOS % 0.6 % (0.0-3.0); HEMATOCRIT 36.1 % (36.0-47.0); HEMOGLOBIN 12.4 g/dl (12.0-15.5); LYMPH # 2.7 10^3/uL (1.5-5.0); LYMPH % 25.3 % (24.0-44.0); MEAN CORPUSCULAR HEMOGLOBIN 27.6 pg (27.0-33.0); MEAN CORPUSCULAR HGB CONC 34.3 g/dl (32.0-36.5); MEAN CORPUSCULAR VOLUME 80.4 fl (80.0-96.0); MONO # 0.7 10^3/uL (0.0-0.8); MONO % 6.6 % (2.0-8.0); NEUTROPHILS % 66.9 % (36.0-66.0); PLATELET COUNT, AUTOMATED 323 10^3/uL (150-450); RED BLOOD COUNT 4.49 10^6/uL (4.00-5.40); WHITE BLOOD COUNT 10.5 10^3/uL (4.0-10.0)
[2024-08-31 16:43] LABS: LIPASE 35 U/L (12-53)
[2024-08-31 16:46] LABS: ALBUMIN 3.5 G/DL (3.2-5.2); ALKALINE PHOSPHATASE 54 U/L (35-104); ALT/SGPT 35 U/L (7.0-40); AST/SGOT 22 U/L (<34); BILIRUBIN,DIRECT < 0.1 MG/DL (<0.4); BILIRUBIN,TOTAL 0.3 MG/DL (0.3-1.2); BLOOD UREA NITROGEN 5 MG/DL (9-23); CALCIUM LEVEL 9.2 MG/DL (8.5-10.1); CARBON DIOXIDE LEVEL 22 MMOL/L (20-31); CHLORIDE LEVEL 104 MMOL/L (98-107); CREATININE FOR GFR 0.46 MG/DL (0.55-1.30); GLOMERULAR FILTRATION RATE > 60.0 (>60); GLUCOSE, FASTING 88 MG/DL (60-100); POTASSIUM SERUM 3.5 MMOL/L (3.5-5.1); SODIUM LEVEL 138 MMOL/L (136-145)
[2024-08-31 16:59] LABS: HCG, SERUM QUANTITATIVE 69377.9 MIU/ML (<4.2)
[2024-08-31] MEDS: NS (Normal Saline) 0.9% 1,000 ML IV ONE (17:15)
[2024-08-31 18:47] VITALS: BP 112/63; TEMP 97.6; O2SAT 100
== END 2024-08-31 19:34 | disposition home or self-care (01) ==
LOC: EDBD 13:48 → M ED 16:51
DX: O99.282 Endocrine, nutritional and metabolic diseases complicating pregnancy, second trimester (principal); E86.0 Dehydration; O99.612 Diseases of the digestive system complicating pregnancy, second trimester; R19.7 Diarrhea, unspecified; E11.9 Type 2 diabetes mellitus without complications; R51.9 Headache, unspecified; K21.9 Gastro-esophageal reflux disease without esophagitis; Z3A.13 13 weeks gestation of pregnancy; Z79.899 Other long term (current) drug therapy; Z79.4 Long term (current) use of insulin

== ENCOUNTER 2024-09-06 07:51 | Emergency (ER) | payer OTHER, MEDICAID ==
[~2024-09-06] VITALS: Ht 165.1 cm; Wt 130.8 kg
[~2024-09-06 07:51] MED LIST changes: +VITAD400CA FT
[2024-09-06 09:30] LABS: KETONE, URINE AUTO RFX 1+ mg/dL (NEGATIVE); MUCUS, URINE RFX LARGE (NEGATIVE); NITRITE, URINE AUTO RFX NEGATIVE (NEGATIVE); RBC, URINE AUTO RFX 43 /HPF (0-3); SQUAM EPITHELIAL CELL UR AURFX 68 /HPF (0-6)
[2024-09-06 09:31] LABS: LEUKOCYTE ESTERASE UR AUTO RFX 2+ (NEGATIVE); WBC, URINE AUTO RFX TNTC /HPF (0-3)
[2024-09-06] MEDS ORDERED: MACR100C43 PO (10:19)
[2024-09-06 10:24] VITALS: BP 118/63; TEMP 98.7; O2SAT 100
[2024-09-06] MEDS: NITROFURANTOIN (MACROBID) 100 MG CAP PO ONE (10:24)
== END 2024-09-06 10:34 | disposition home or self-care (01) ==
LOC: M ED 07:51
DX: O23.12 Infections of bladder in pregnancy, second trimester (principal); N30.00 Acute cystitis without hematuria; E11.9 Type 2 diabetes mellitus without complications; F31.9 Bipolar disorder, unspecified; E28.2 Polycystic ovarian syndrome; F10.10 Alcohol abuse, uncomplicated; K21.9 Gastro-esophageal reflux disease without esophagitis; Z79.4 Long term (current) use of insulin; Z79.899 Other long term (current) drug therapy; Z3A.14 14 weeks gestation of pregnancy

== ENCOUNTER 2024-09-09 20:18 | Emergency (ER) | payer OTHER, MEDICAID ==
[~2024-09-09] VITALS: Ht 165.1 cm; Wt 131.1 kg
[~2024-09-09 20:18] MED LIST changes: +MACR100C43 PO
[2024-09-09 20:25] VITALS: BP 125/65; TEMP 96.3; O2SAT 99
== END 2024-09-10 01:28 | disposition left against medical advice (07) ==
LOC: M ED 20:18
DX: Z53.21 Procedure and treatment not carried out due to patient leaving prior to being seen by health care provider (principal)

== ENCOUNTER 2025-01-21 16:01 | Emergency (ER) | payer OTHER, MEDICAID | END 2025-01-21 16:06 | disposition admitted as inpatient to this hospital (09) | LOC: M ED 16:01 | DX: Z53.21 Procedure and treatment not carried out due to patient leaving prior to being seen by health care provider (principal) ==

== ENCOUNTER 2025-01-21 16:14 | Outpatient (CLI) | payer OTHER, MEDICAID ==
[~2025-01-21] VITALS: Ht 165.1 cm; Wt 131.4 kg
[2025-01-21 16:43] VITALS: BP 104/70
[2025-01-21] MEDS ORDERED: HOME MED LIST COMPLETE! XX SCH (16:55)
[2025-01-21 17:47] VITALS: BP 99/55
== END 2025-01-21 19:09 | disposition home or self-care (01) ==
LOC: M LDO 16:14
PROVIDERS: ATTEND Advanced Practice Midwife
DX: O28.8 Other abnormal findings on antenatal screening of mother (principal); O09.33 Supervision of pregnancy with insufficient antenatal care, third trimester; O09.513 Supervision of elderly primigravida, third trimester; O24.313 Unspecified pre-existing diabetes mellitus in pregnancy, third trimester; Z3A.34 34 weeks gestation of pregnancy
CPT/HCPCS: 59025; 76819; G0463

== ENCOUNTER 2025-02-01 20:24 | Outpatient (CLI) | payer OTHER ==
[~2025-02-01] VITALS: Ht 165.1 cm; Wt 131.0 kg
[2025-02-01 20:35] VITALS: BP 115/62
[2025-02-01 21:10] VITALS: BP 115/66
== END 2025-02-01 21:20 | disposition home or self-care (01) ==
LOC: M LDO 20:24
PROVIDERS: ATTEND Specialist
DX: O26.893 Other specified pregnancy related conditions, third trimester (principal); R60.9 Edema, unspecified; Z3A.35 35 weeks gestation of pregnancy
CPT/HCPCS: 59025; G0463

== ENCOUNTER 2025-02-20 20:04 | Outpatient (CLI) | payer OTHER ==
[~2025-02-20] VITALS: Ht 165.1 cm; Wt 136.8 kg
[2025-02-20 20:10] VITALS: BP 132/82
[2025-02-20 21:08] VITALS: BP 130/87
== END 2025-02-20 21:21 | disposition home or self-care (01) ==
LOC: M LDO 20:04
PROVIDERS: ATTEND Obstetrics & Gynecology
DX: O24.113 Pre-existing type 2 diabetes mellitus, in pregnancy, third trimester (principal); O99.213 Obesity complicating pregnancy, third trimester; O99.283 Endocrine, nutritional and metabolic diseases complicating pregnancy, third trimester; E28.2 Polycystic ovarian syndrome; E66.9 Obesity, unspecified; Z3A.38 38 weeks gestation of pregnancy
CPT/HCPCS: 59025; 76815; G0463